=== PATIENT | female | born 1945 | race Caucasian/White ===

== ENCOUNTER 2017-12-03 06:35 | Inpatient (IN) ==
--- NOTE | 2017-12-03 07:56 | XRay Report ---
INDICATION: Weakness TECHNIQUE: AP chest x-ray,portable semiupright COMPARISON: 11/20/2015, 08/15/2014 FINDINGS:Lungs are negative. No parenchymal infiltrate or mass. No pulmonary edema or pulmonary congestion. No acute abnormality. No significant interval change. IMPRESSION: No acute abnormalities. Interpreted and Authenticated by: Ahsan Veras 12/03/17
[2017-12-03 08:13] LABS: ALT/SGPT 7 U/l (0-40); Albumin 3.6 gm/dL (3.2-5.2); Albumin/Globulin Ratio 0.9 (1.0-2.3); Alkaline Phosphatase 42 U/L (39-117); Blood Urea Nitrogen 46 mg/dl (8-23); proBNP 149.2 pg/ml (0-125)
--- NOTE | 2017-12-03 08:18 | Emergency Department Note ---
Weakness HPI - General Chief complaint: Weakness Stated complaint: Weakness Time Seen by Provider: 12/03/17 07:18 Source: EMS Mode of arrival: EMS - History of Present Illness HPI Narrative: Patient presents from home where she lives with family. Increasing weakness over the last 2-3 days, unable to ambulate. Incontinent of urine and occasionally stool which is occasional but not usually as frequent. No fevers or chills. No focal symptoms at the patient and family are aware of. Brought in by ambulance today due to her progressive weakness. Chronic leg swelling, doesn't seem to be responding to furosemide as has in the past. - Related Data Home Medications Medication Instructions Recorded Confirmed aspirin 81 mg tablet 81 mg PO DAILY 03/02/15 12/03/17 cholecalciferol (vitamin D3) 1,000 1,000 unit PO DAILY cap 05/10/16 12/03/17 unit capsule multivitamin tablet 1 tab-cap PO DAILY 05/10/16 12/03/17 Furosemide [Lasix] 20 mg PO DAILY 12/03/17 12/03/17 Lisinopril [Zestril] 10 mg PO DAILY 12/03/17 12/03/17 Potassium 99 mg PO DAILY 12/03/17 12/03/17 amLODIPine BESYLATE [Amlodipine 5 mg PO DAILY 12/03/17 12/03/17 Besylate] Previous Rx's Medication Instructions Recorded Easy Touch Test Strip See Dose Instructions .ROUTE 10/22/16 .MEDSUPPLY #100 each NS erythromycin 5 mg/gram (0.5 %) eye 0.5 inch OPHTHALMIC QID 7 Days 10/22/16 ointment #3.5 g B/L Compression stockings (20-30mm #2 each 10/23/16 Hg) insulin lispro (U-100) 100 unit/mL 10 unit SUB-Q QPM #15 ml 05/06/17 subcutaneous pen pen needle, diabetic 31 gauge x See Dose Instructions .ROUTE 10/15/17 1/" .MEDSUPPLY #200 each tramadol 50 mg tablet 50 mg PO Q8H PRN #90 tab 11/14/17 insulin glargine (U-100) 100 30 unit SUB-Q QAM #15 ml 11/25/17 unit/mL (3 mL) subcutaneous pen Allergies Allergy/AdvReac Type Severity Reaction Status Date / Time No Known Drug Allergies Allergy Verified 03/27/17 11:24 Review of Systems All systems ED: reviewed and negative except as stated. Constitutional: Denies: fever, chills Cardiovascular: Reports: dyspnea on exertion. Denies: chest pain, palpitations Gastrointestinal: Denies: abdominal pain Past Medical History - Past Medical History Attestation: Yes: The following information was validated with the patient. Source: obtained from family Medical history: Reports: CVA, dementia, DM Surgical history ED: Reports: cholecystectomy, other (ovarian cyst) Family history: Reports: non-contributory - Social History smoking status: Never smoker Physical Exam Limitations: no limitations, other (appears older than stated age) General appearance: alert, obese Head: atraumatic, normocephalic Eye: Present: normal appearance ENT: normal exam, mucous membranes moist Neck: Present: normal inspection, other (short stature, JVD not able to be examined) Chest: Present: normal inspection. Absent: tenderness Respiratory: Present: normal lung sounds bilaterally. Absent: respiratory distress Cardiovascular: Present: regular rate, normal rhythm, other (distant heart sounds) Abdominal: Present: soft, tenderness. Absent: distention, guarding, rebound, rigidity Abdominal tenderness: Present: diffuse, mild Extremities: Present: other (4+ edema, non-weeping, incompletely pitting) Back: Present: normal inspection Neurological: Present: alert, oriented X3, other (generally weak, 4-5) Psychiatric: Present: normal affect Skin: Present: warm, dry. Absent: rash Course Vital Signs Temperature 97.0 F 12/03/17 06:35 Pulse Rate 76 12/03/17 06:35 Respiratory Rate 20 12/03/17 06:35 Blood Pressure 116/89 12/03/17 06:35 Pulse Oximetry (%) 100 12/03/17 06:35 Temperature 97.0 F 12/03/17 06:35 Pulse Rate 66 12/03/17 07:49 Respiratory Rate 13 12/03/17 07:49 Blood Pressure 131/57 12/03/17 07:01 Pulse Oximetry (%) 97 12/03/17 07:49 Weakness - Lab Data Lab results reviewed: Yes I reviewed the patient's lab results. Result diagrams: 12/03/17 07:54 12/03/17 07:10 Lab Results 05/23/18 05/23/18 Range/Units 07:10 07:10 POC Hct 36.0 (36.0-48.0) % POC Sodium 137 (133-145) mmol/L Sodium 137 (133-145) mmol/L POC Potassium 4.6 (3.3-5.1) mmol/L Potassium 4.8 (3.3-5.1) mmol/L POC Chloride 103 (96-108) mmol/L Chloride 99 (96-108) mmol/L Carbon Dioxide 23 (22-30) mmol/L POC Total CO2 27 (22-30) mmol/L Anion Gap 15.0 (8-16) POC BUN 51 H (8-23) mg/dl BUN 46 H (8-23) mg/dl Creatinine 1.5 H (0.6-1.1) mg/dl POC Creatinine 1.5 H (0.6-1.1) mg/dl GFR Calculation 34 Glucose 100 (70-105) mg/dL POC Glucose 102 (70-105) mg/dL Calcium 9.0 (8.6-10.4) mg/dl POC WB Ioniz Calcium 1.09 L (1.16-1.32) mmol/L Total Bilirubin 0.4 (0.0-1.0) mg/dL AST 16 (0-37) U/l ALT 7 (0-40) U/l Alkaline Phosphatase 42 (39-117) U/L Troponin T 0.02 (0-0.03) ng/ml NT-Pro-B Natriuret Pep 149.2 H (0-125) pg/ml Total Protein 7.6 (5.9-8.4) gm/dL Albumin 3.6 (3.2-5.2) gm/dL Globulin 4.0 H (2.2-3.7) gm/dL Albumin/Globulin Ratio 0.9 L (1.0-2.3) - Radiology Data Radiology results reviewed: Yes I reviewed the patient's radiology results. No acute finding - EKG Data EKG attestation: Yes I reviewed and interpreted this EKG. EKG shows normal: sinus rhythm Disposition Pt seen by PROOF PRESS OPERATOR/PA only: No Clinical Impression: Generalized weakness, Morbid obesity, Bilateral lower extremity edema, Acute kidney injury Summary: Pending workup, patient to be deferred to Dr. Sanders at shift change, please see his notes for final diagnosis and disposition Urinalysis pending Appears to be prerenal with volume overload Miniscule elevation in troponin will be trended, doubt acute coronary Suggestion of right-sided heart failure clinically Disposition: Still a Patient Referrals: Higinio Mays MD [Primary Care Provider] -
[2017-12-03 08:20] LABS: Basophils # (Auto) 0.1 K/mcL (0.0-0.3); Basophils % (Auto) 0.8 % (0.0-2.0); Eosinophils # (Auto) 0.2 K/mcL (0.0-0.7); Eosinophils % (Auto) 3.4 % (0.0-7.0); Granulocytes % (Auto) 59.3 % (38.0-78.0); Lymphocytes % (Auto) 28.9 % (15.5-49.0); Mean Cell Volume 90.8 fL (80.0-100.0); Mean Corpuscular HGB Conc 32.7 g/dL (31.0-36.0); Mean Corpuscular Hemoglobin 29.7 pg (26.0-34.0); Monocytes # (Auto) 0.5 K/mcL (0.1-0.9); Monocytes % (Auto) 7.6 % (1.0-12.0); Platelet Count 288 K/mcL (140-440); RBC 3.97 M/mcL (4.00-5.20); Red Cell Distribution Width 13.4 % (11.5-14.5)
[2017-12-03 08:31] LABS: Appearance,Urine CLOUDY; Bacteria,Urine MOD /hpf (0); Bilirubin,Urine NEG (NEG); Color,Urine YELLOW; Glucose,Urine (UA) NEGATIVE (NEG); Leukocyte Esterase,Urine 500 /uL (NEG); Protein,Urine 30 mg/dL (NEG); Specific Gravity,Urine 1.016 (1.000-1.035); Urine Blood 0.2 mg/dL (<0.03); Urine RBC 15 /hpf (0-1); Urine Squamous Epithelial Cell 1 /hpf (0-4); Urine WBC > 182 /hpf (0-4); Urobilinogen,Urine NEG (NEG)
[2017-12-03] MEDS ORDERED: cefTRIAXone 1 GM VIAL IV ONE ×2 (08:36→13:00)
[2017-12-03] MEDS ORDERED: FUROSEMIDE 20 MG/2 ML VIAL IV ONE (10:09)
--- NOTE | 2017-12-03 10:48 | Emergency Department Note ---
Weakness HPI - General Chief complaint: Weakness Stated complaint: Weakness Time Seen by Provider: 12/03/17 07:18 Source: patient, family, EMS Mode of arrival: EMS Limitations: no limitations, other (appears older than stated age) - History of Present Illness HPI Narrative: I received patient in checkout from Dr. mendez at shift change. I reviewed his documentation as well as briefly discussed situation with the patient her and her daughter Apparently she was normally able to walk some with a walker and move around at home. Her daughter is her caregiver; she cares for the as well. Apparently lymphedema in her bilateral lower extremities is gotten worse, she has become more confused, and now she is complaining her legs no longer work. She is not complaining of chest pressure shortness of breath chest pain or other chest pain equivalents - Related Data Home Medications Medication Instructions Recorded Confirmed aspirin 81 mg tablet 81 mg PO DAILY 03/02/15 12/03/17 cholecalciferol (vitamin D3) 1,000 1,000 unit PO DAILY cap 05/10/16 12/03/17 unit capsule multivitamin tablet 1 tab-cap PO DAILY 05/10/16 12/03/17 Furosemide [Lasix] 20 mg PO DAILY 12/03/17 12/03/17 Lisinopril [Zestril] 10 mg PO DAILY 12/03/17 12/03/17 Potassium 99 mg PO DAILY 12/03/17 12/03/17 amLODIPine BESYLATE [Amlodipine 5 mg PO DAILY 12/03/17 12/03/17 Besylate] Previous Rx's Medication Instructions Recorded Easy Touch Test Strip See Dose Instructions .ROUTE 10/22/16 .MEDSUPPLY #100 each NS erythromycin 5 mg/gram (0.5 %) eye 0.5 inch OPHTHALMIC QID 7 Days 10/22/16 ointment #3.5 g B/L Compression stockings (20-30mm #2 each 10/23/16 Hg) insulin lispro (U-100) 100 unit/mL 10 unit SUB-Q QPM #15 ml 05/06/17 subcutaneous pen pen needle, diabetic 31 gauge x See Dose Instructions .ROUTE 10/15/17 1/4" .MEDSUPPLY #200 each tramadol 50 mg tablet 50 mg PO Q8H PRN #90 tab 11/14/17 insulin glargine (U-100) 100 30 unit SUB-Q QAM #15 ml 11/25/17 unit/mL (3 mL) subcutaneous pen Allergies Allergy/AdvReac Type Severity Reaction Status Date / Time No Known Drug Allergies Allergy Verified 03/27/17 11:24 Review of Systems Constitutional: Denies: fever, chills Cardiovascular: Reports: dyspnea on exertion. Denies: chest pain, palpitations Gastrointestinal: Denies: abdominal pain Past Medical History - Past Medical History Medical history: Reports: CVA, dementia, DM, GERD, hyperlipidemia, hypertension , seizures, other (Lymphedema) Surgical history ED: Reports: cholecystectomy, other (ovarian cyst) - Social History smoking status: Never smoker Physical Exam No acute distress resting comfortably. Obese. Bilateral lower extremities with +2-3 pitting edema tender but no redness or weeping. Not able to move around much in the bed at all. No respiratory distress; breathing normally Limitations: no limitations, other (appears older than stated age) General appearance: alert, obese Course Vital Signs Temperature 97.0 F 12/03/17 06:35 Pulse Rate 76 12/03/17 06:35 Respiratory Rate 20 12/03/17 06:35 Blood Pressure 116/89 12/03/17 06:35 Pulse Oximetry (%) 100 12/03/17 06:35 Temperature 98.4 F 12/03/17 09:00 Pulse Rate 73 12/03/17 10:37 Respiratory Rate 15 12/03/17 10:37 Blood Pressure 112/62 12/03/17 10:33 Pulse Oximetry (%) 97 12/03/17 10:37 Weakness - Medical Records Medical records reviewed: Yes I reviewed the patient's medical records. - Lab Data Lab results reviewed: Yes I reviewed the patient's lab results. Result diagrams: 12/03/17 07:54 12/03/17 07:10 Lab Results 12/03/17 12/03/17 12/03/17 Range/Units 07:10 07:10 07:48 WBC (4.5-11.0) K/mcL RBC (4.00-5.20) M/mcL Hgb (12.0-15.0) g/dL Hct (36.0-48.0) % POC Hct 36.0 (36.0-48.0) % MCV (80.0-100.0) fL MCH (26.0-34.0) pg MCHC (31.0-36.0) g/dL RDW (11.5-14.5) % Plt Count (140-440) K/mcL MPV (7.4-10.4) fL Gran % (38.0-78.0) % Lymph % (Auto) (15.5-49.0) % [place] % (Auto) (1.0-12.0) % Eos % (Auto) (0.0-7.0) % Baso % (Auto) (0.0-2.0) % Gran # (1.8-8.0) K/mcL Lymph # (Auto) (1.5-4.8) K/mcL [place] # (Auto) (0.1-0.9) K/mcL Eos # (Auto) (0.0-0.7) K/mcL Baso # (Auto) (0.0-0.3) K/mcL VBG Lactic Acid (0.5-2.2) mmol/L POC Sodium 137 (133-145) mmol/L Sodium 137 (133-145) mmol/L POC Potassium 4.6 (3.3-5.1) mmol/L Potassium 4.8 (3.3-5.1) mmol/L POC Chloride 103 (96-108) mmol/L Chloride 99 (96-108) mmol/L Carbon Dioxide 23 (22-30) mmol/L POC Total CO2 27 (22-30) mmol/L Anion Gap 15.0 (8-16) POC BUN 51 H (8-23) mg/dl BUN 46 H (8-23) mg/dl Creatinine 1.5 H (0.6-1.1) mg/dl POC Creatinine 1.5 H (0.6-1.1) mg/dl GFR Calculation 34 Glucose 100 (70-105) mg/dL POC Glucose 102 (70-105) mg/dL Calcium 9.0 (8.6-10.4) mg/dl POC WB Ioniz Calcium 1.09 L (1.16-1.32) mmol/L Total Bilirubin 0.4 (0.0-1.0) mg/dL AST 16 (0-37) U/l ALT 7 (0-40) U/l Alkaline Phosphatase 42 (39-117) U/L Troponin T 0.02 (0-0.03) ng/ml NT-Pro-B Natriuret Pep 149.2 H (0-125) pg/ml Total Protein 7.6 (5.9-8.4) gm/dL Albumin 3.6 (3.2-5.2) gm/dL Globulin 4.0 H (2.2-3.7) gm/dL Albumin/Globulin Ratio 0.9 L (1.0-2.3) Urine Color Yellow Urine Appearance Cloudy Urine pH 6.0 (5.0-9.0) Ur Specific [place] 1.016 (1.000-1.035) Urine Protein 30 A (NEG) mg/dL Urine Glucose (UA) Negative (NEG) mg/dL Urine Ketones Neg (NEG) mg/dL Urine Occult Blood 0.2 A (<0.03) mg/dL Urine Nitrate Pos A (NEG) Urine Bilirubin Neg (NEG) mg/dL Urine Urobilinogen Neg (NEG) mg/dL Ur Leukocyte Esterase 500 A (NEG) /uL Urine RBC 15 H (0-1) /hpf Urine WBC > 182 H (0-4) /hpf Ur Squamous Epith Cells 1 (0-4) /hpf Urine Bacteria Mod A (0) /hpf Ur Culture Indicated? Yes 12/03/17 12/03/17 12/03/17 Range/Units 07:54 08:48 08:48 WBC 6.9 (4.5-11.0) K/mcL RBC 3.97 L (4.00-5.20) M/mcL Hgb 11.8 L (12.0-15.0) g/dL Hct 36.0 (36.0-48.0) % POC Hct (36.0-48.0) % MCV 90.8 (80.0-100.0) fL MCH 29.7 (26.0-34.0) pg MCHC 32.7 (31.0-36.0) g/dL RDW 13.4 (11.5-14.5) % Plt Count 288 (140-440) K/mcL MPV 7.4 (7.4-10.4) fL Gran % 59.3 (38.0-78.0) % Lymph % (Auto) 28.9 (15.5-49.0) % [place] % (Auto) 7.6 (1.0-12.0) % Eos % (Auto) 3.4 (0.0-7.0) % Baso % (Auto) 0.8 (0.0-2.0) % Gran # 4.1 (1.8-8.0) K/mcL Lymph # (Auto) 2.0 (1.5-4.8) K/mcL [place] # (Auto) 0.5 (0.1-0.9) K/mcL Eos # (Auto) 0.2 (0.0-0.7) K/mcL Baso # (Auto) 0.1 (0.0-0.3) K/mcL VBG Lactic Acid 1.0 (0.5-2.2) mmol/L POC Sodium (133-145) mmol/L Sodium (133-145) mmol/L POC Potassium (3.3-5.1) mmol/L Potassium (3.3-5.1) mmol/L POC Chloride (96-108) mmol/L Chloride (96-108) mmol/L Carbon Dioxide (22-30) mmol/L POC Total CO2 (22-30) mmol/L Anion Gap (8-16) POC BUN (8-23) mg/dl BUN (8-23) mg/dl Creatinine (0.6-1.1) mg/dl POC Creatinine (0.6-1.1) mg/dl GFR Calculation Glucose (70-105) mg/dL POC Glucose (70-105) mg/dL Calcium (8.6-10.4) mg/dl POC WB Ioniz Calcium (1.16-1.32) mmol/L Total Bilirubin (0.0-1.0) mg/dL AST (0-37) U/l ALT (0-40) U/l Alkaline Phosphatase (39-117) U/L Troponin T 0.03 (0-0.03) ng/ml NT-Pro-B Natriuret Pep (0-125) pg/ml Total Protein (5.9-8.4) gm/dL Albumin (3.2-5.2) gm/dL Globulin (2.2-3.7) gm/dL Albumin/Globulin Ratio (1.0-2.3) Urine Color Urine Appearance Urine pH (5.0-9.0) Ur Specific [place] (1.000-1.035) Urine Protein (NEG) mg/dL Urine Glucose (UA) (NEG) mg/dL Urine Ketones (NEG) mg/dL Urine Occult Blood (<0.03) mg/dL Urine Nitrate (NEG) Urine Bilirubin (NEG) mg/dL Urine Urobilinogen (NEG) mg/dL Ur Leukocyte Esterase (NEG) /uL Urine RBC (0-1) /hpf Urine WBC (0-4) /hpf Ur Squamous Epith Cells (0-4) /hpf Urine Bacteria (0) /hpf Ur Culture Indicated? - Radiology Data Radiology results reviewed: Yes I reviewed the patient's radiology results. X-ray was read as normal without evidence of pulmonary vascular congestion - EKG Data EKG attestation: Yes I reviewed and interpreted this EKG. EKG results narrative: I did review her EKG which showed heart rate in the 70s normal sinus rhythm without evidence of ischemia. Low voltage leads suggestive of pulmonary disease -in light of her body habitus suspect obstructive sleep apnea Disposition Pt seen by LEAN SPECIALIST/PA only: No Clinical Impression: Generalized weakness, Morbid obesity, Acute kidney injury, Bilateral lower extremity edema, Complicated UTI (urinary tract infection), Advanced dementia Summary: Patient was initially seen and evaluated by Dr. mendez. Please see his note for full details After getting her test results back it is apparent that she is got a urinary tract infection-this was sent for culture and Dr. mendez started Rocephin. UTI would account for her symptoms of weakness and sudden loss of function. I.e. complicated UTI Additionally her creatinine is elevated almost double what it was before to 1.5 suggest acute prerenal kidney injury. However because the lymphedema in her legs she is likely fluid overloaded even though her chest x-ray is read as normal. She is on low-dose Lasix 20 mg which is not helping that much anymore. So we put in a Kraft catheter and gave 20 mg more IV Lasix. She has some discomfort with the Kraft catheter and so she was given Pyridium. I tried to review her chart but I could not find an echocardiogram She has a mildly elevated troponin 0.02 that went up to 0.03. It is not clear if this is actually real as she is entirely symptomatic. These labs were ordered because of the initial weakness although she is not having any chest symptoms. Likely this elevated troponin is an artifact from the acute kidney injury but this will need to be monitored. Because of her advanced dementia and her 's difficulty giving me a straight story I discussed her case with her daughter who is on the face sheet as contact. Her daughter confirmed that indeed the patient was ambulatory at least minimally prior to this episode, because of that patient really cannot go home as they are not set up to deal with a nonambulatory bedbound patient. I did discuss the case with Dr. Rincon, the hospitalist who agreed to accept patient. She will be admitted for the above-noted diagnoses: Complicated UTI, acute kidney injury etc. Disposition: Xfer As Inpt ([facility]) Condition: Fair Referrals: Higinio Mays MD [Primary Care Provider] -
[2017-12-03] MEDS ORDERED: PHENAZOPYRIDINE 200 MG TABLET PO ONE (11:00)
[2017-12-03] MEDS ORDERED: cefTRIAXone 2 GM in DEXTROSE 5% IN WATER 50 ML IV SCH (11:56)
[2017-12-03] MEDS ORDERED: MAGNESIUM SULFATE 2 GM/50 ML BAG IV PRN (11:56)
[2017-12-03] MEDS ORDERED: POTASSIUM CHLORIDE 20 MEQ PACKET PO PRN (11:56)
[2017-12-03] MEDS ORDERED: traZODone HCL 50 MG TABLET PO PRN (11:56)
[2017-12-03] MEDS ORDERED: ACETAMINOPHEN 325 MG TABLET PO PRN (11:56)
[2017-12-03] MEDS ORDERED: ONDANSETRON 4 MG/2 ML VIAL IV PRN (11:56)
[2017-12-03] MEDS ORDERED: ACETAMINOPHEN 1,000 MG/100 ML BOTTLE IV PRN (11:56)
[2017-12-03] MEDS ORDERED: guaiFENesin/CODEINE 10 ML UDC PO PRN (11:56)
[2017-12-03] MEDS: 0.9 % SODIUM CHLORIDE 1,000 ML IV SCH (12:30)
--- NOTE | 2017-12-03 13:19 | Ultrasound Report ---
CLINICAL INFORMATION: History of urinary tract infections. TECHNIQUE: Grayscale and color flow Doppler spectral imaging COMPARISON: Previous examination dated 11/21/2015 FINDINGS: Examination is suboptimal due to patient immobility and obesity. Right kidney measures 11.0 x 4.7 x 3.9 cm. Renal cortex is slightly echogenic. No solid or cystic mass. No hydronephrosis. Left kidney measures 10.6 x 5.4 x 5.4 cm. Left renal cortex is slightly echogenic. There is a left upper pole cyst which measures 5.8 x 4.0 x 6.2 cm. No solid mass. No hydronephrosis. No detectable calculi. Urinary bladder is not evaluated. There is a Kraft catheter in place. Patient has a known right adnexal cyst which has been previously biopsied. The cyst measures 14.5 x 11.1 x 15.6 cm. This cystic mass was identified on a CT scan dated 03/31/2007. IMPRESSION: 1. Benign left renal cyst. 2. Kidneys are otherwise negative. Mildly echogenic renal cortex bilaterally 3. Large cystic mass in the pelvis isn't previously evaluated and biopsied Interpreted and Authenticated by: Ahsan Veras 12/03/17
[2017-12-03] MEDS: 0.9 % SODIUM CHLORIDE 10 ML SYRINGE IV SCH ×2 (13:30→20:18)
[2017-12-03] MEDS: ERYTHROMYCIN OPHTH OINT 3.5GM TUBE OU SCH ×2 (13:31→17:05)
--- NOTE | 2017-12-03 13:36 | Internal Med History&Physical ---
Medical - H&P: [facility] Patient information: Note initiated : 12/03/17 at 1:33 pm Service Date, if different from initiated Date: [] Patient: Nicole Wolf a 72 y/o F admitted on 12/03/17 for Weakness. Chief Complaint: [] Chief complaint: weakness History of present illness: Ms. Wolf is a 72 year old F who comes to the ER with her stepdaughter and after she has noticed progressive weakness worsening over the last 48 hours to the point patient is unable to get out of bed or ambulate. On her baseline she uses a 4 wheel walker and has chronic balance disorder since 2010. She also has a history of lumbar radiculopathy. She presently is unable to move either of her legs and feels that this is sudden change however family appears to disagree on the rapidity of onset. She complains of associated lower extremity tenderness from knee to the ankle bilaterally however denies any redness or trauma. She also endorses increasing lower extremity swelling which has been chronic and uses diuretics which recently has not been very helpful. She however denies joint swelling, myalgias, headache. She denies changes in medications or recent exposure to sick contact. She further denies unilateral weakness however has had known bladder incontinence over the last few years. She uses adult diapers. She denies lower back pain, back trauma, photophobia, tearing neck pain or thunderclap headache. She denies recent falls. Initial work up in the ER was significant for pyuria along with elevated creatinine. Hospitalist service was consulted in light of weakness complicated UTI and renal failure. At the time of evaluation patient is accompanied with her and stepdaughter. She is able to answer most questions. She endorses to history as above. She normally ambulates using a walker but has been unable to walk or get out of bed in the last 48 hours. She also appears mildly confused. Review of systems A 10 point review of system was performed and is negative except as discussed above Medical - H&P: PMH Medical history: CAD History of CVA Anxiety disorder hypertension DM type II Dementia Surgical history: Past Surgical History Hx of cholecystectomy (Chronic) Pertinent family history: Noncontributory Social history: Lives with her and caregiver stepdaughter. 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 No history of smoking/alcoholism Have you smoked in the last 12 months: No Medical - H&P: Meds Home Medications Medication Instructions Recorded Confirmed Type aspirin 81 mg tablet 81 mg PO DAILY 03/02/15 12/03/17 History cholecalciferol (vitamin D3) 1,000 1,000 unit PO DAILY cap 05/10/16 12/03/17 History unit capsule multivitamin tablet 1 tab-cap PO DAILY 05/10/16 12/03/17 History erythromycin 5 mg/gram (0.5 %) eye 0.5 inch OPHTHALMIC QID 7 Days 10/22/1612/03 Rx ointment #3.5 g insulin lispro (U-100) 100 unit/mL 10 unit SUB-Q QPM #15 ml 05/06/17 12/03/17 Rx subcutaneous pen tramadol 50 mg tablet 50 mg PO Q8H PRN #90 tab 11/14/17 12/03/17 Rx insulin glargine (U-100) 100 30 unit SUB-Q QAM #15 ml 11/25/17 12/03/17 Rx unit/mL (3 mL) subcutaneous pen Furosemide [Lasix] 20 mg PO DAILY 12/03/17 12/03/17 History Lisinopril [Zestril] 10 mg PO DAILY 12/03/17 12/03/17 History Potassium 99 mg PO DAILY 12/03/17 12/03/17 History amLODIPine BESYLATE [Amlodipine 5 mg PO DAILY 12/03/17 12/03/17 History Besylate] Allergies Allergy/AdvReac Type Severity Reaction Status Date / Time No Known Drug Allergies Allergy Verified 03/27/17 11:24 Medical - H&P: Exam - Constitutional Vitals: Temp Pulse Resp BP Pulse Ox 96.3 F L 70 18 138/68 96 12/03/17 12:04 12/03/17 12:04 12/03/17 12:04 12/03/17 12:04 12/03/17 12:04 General appearance: morbidly obese Exam: Very anxious Oral cavity dry no eardischarge Head normocephalic Neck no lymphadenopathy S1 and S2 regular rhythm ESM grade 1 Diminished breath sounds bases Abdomen soft Lower extremity bilateral lymphedema from knee to ankles Skin no suspicious lesion except for gluteal 5 mm decubiti ulceration No joint swelling or erythema Psych alert cooperative Neuro - grade 3 strength bilateral lower extremity on exam , however withdraws to tactile/pain stimulus Medical - H&P: Reslt - Labs CBC & Chem 7: 12/04/17 04:23 12/04/17 04:23 Labs: Short CBC 12/03/17 Range/Units 07:54 WBC 6.9 (4.5-11.0) K/mcL Hgb 11.8 L (12.0-15.0) g/dL Hct 36.0 (36.0-48.0) % Plt Count 288 (140-440) K/mcL BMP 12/03/17 07:10 Sodium 137 Potassium 4.8 Chloride 99 Carbon Dioxide 23 BUN 46 H Creatinine 1.5 H Glucose 100 Calcium 9.0 Cardiac Enzymes 12/03/17 12/03/17 Range/Units 07:10 08:48 Troponin T 0.02 0.03 (0-0.03) ng/ml Liver Function 12/03/17 Range/Units 07:10 Total Bilirubin 0.4 (0.0-1.0) mg/dL AST 16 (0-37) U/l ALT 7 (0-40) U/l Alkaline Phosphatase 42 (39-117) U/L Albumin 3.6 (3.2-5.2) gm/dL Urine 12/03/17 Range/Units 07:48 Urine Color Yellow Urine Appearance Cloudy Urine pH 6.0 (5.0-9.0) Ur Specific [place] 1.016 (1.000-1.035) Urine Protein 30 A (NEG) mg/dL Urine Glucose (UA) Negative (NEG) mg/dL Medical - H&P: A/P (1) Complicated UTI (urinary tract infection) Current visit: Yes Status: Acute * Complicated UTI-continue antibiotic coverage. Await cultures * Acute renal failure-renal ultrasound. Foleys catheter placement. * Bilateral lower extremity weakness-rule out cord compression. Lumbosacral spine MRI. Patient carries a history of lumbar radiculopathy/chronic bladder incontinence. She may have a component of spinal stenosis. * History of DM type II continue basal prandial insulin * Hypertension hold lisinopril in light of renal failure, continue amlodipine * Degenerative joint disease continue home medication * History of CAD continue aspirin * DNR Plan * Antibiotic coverage * Renal ultrasound/lumbosacral MRI * Pre-existing medical condition management as above * B12/thiamine * Physical therapy * Case management to arrange SNF transfer Medical - H&P: Qual - VTE Deep Vein Thrombosis/Pulmonary Embolism Present on Admission: No
--- NOTE | 2017-12-03 17:22 | Magnetic Resonance Report ---
CLINICAL INFORMATION: Bilateral leg pain and weakness TECHNIQUE: Sagittal, axial, coronal images of the lumbar spine COMPARISON: 04/01/2017 FINDINGS: Multilevel degenerative disc disease and facet arthropathy. Right subarticular disc protrusion at T9-10. This causes asymmetric effacement of the CSF space. No spinal cord is compression. No spinal canal stenosis. Degenerative disc disease at T10-11. No disc herniation. No spinal canal stenosis. Degenerative disc disease at T11-12. Midline central disc protrusion. Disc material extends behind the T11 vertebral body. This causes mild midline effacement of the CSF space. No spinal cord compression. No spinal canal stenosis. Degenerative disc disease at T12-L1. There is a small midline protrusion. No spinal canal or foraminal stenosis. Degenerative disc disease at L1-2. There is a bulging disc. There is a broad-based right subarticular and foraminal protrusion. This causes asymmetric effacement of the thecal sac. No significant foraminal stenosis. Degenerative disc disease at L2-3. Diffusely bulging disc without focal herniation. There is facet arthropathy. There is moderate spinal canal stenosis. No foraminal stenosis Degenerative disc disease at L3-4. No focal disc herniation. There is facet arthropathy with osseous and ligamentous hypertrophy. There is mild spinal canal stenosis. There is right L3 foraminal stenosis Mild degenerative disc disease at L4-5. Small left subarticular protrusion with mild effacement of the prethecal fat. There is bilateral facet arthropathy with osseous and ligamentous hypertrophy. No spinal canal or foraminal stenosis. Severe degenerative disc narrowing at L5-S1. There is a bulging disc with small midline central protrusion. There is facet arthropathy bilaterally. No spinal canal stenosis. There is left L5 foraminal stenosis. No lumbar compression fracture. No pathologic marrow replacement. Normal lumbar lordosis. Conus medullaris and cauda equina are normal. No epidural abnormality. There is a large left renal cyst. This measures 5.5 cm maximally. IMPRESSION: 1. Severe multilevel degenerative disc disease and facet arthropathy 2. Moderate spinal canal stenosis at L2-3. Mild spinal canal stenosis at L3-4 3. Foraminal stenoses as above Interpreted and Authenticated by: Ahsan Veras 12/03/17
--- NOTE | 2017-12-03 17:41 | Magnetic Resonance Report ---
CLINICAL INFORMATION: Sacral pain. Bilateral leg pain. TECHNIQUE: Axial, coronal, sagittal images of the sacrum. COMPARISON: None. FINDINGS: Sacrum is negative. No insufficiency fracture. No localized bone marrow edema. No lytic lesion. Sacral neural foramen appear normal. Coccyx is negative. No edema. No fracture. No presacral or precoccygeal soft tissue abnormality. Degenerative disc disease at L4-5 and L5-S1. IMPRESSION: Negative MRI scan of the sacrum and coccyx Interpreted and Authenticated by: Ahsan Veras 12/03/17
[2017-12-03] MEDS: INSULIN LISPRO 1 UNIT/0.01 ML UNIT SQ SCH (18:52)
[2017-12-03] MEDS: HEPARIN 5,000 UNIT/ML VIAL SQ SCH (20:15)
[2017-12-03] MEDS: SENNOSIDES/DOCUSATE SODIUM 1 TAB TABLET PO SCH (20:15)
[2017-12-03] MEDS: DOCUSATE SODIUM 100 MG CAPSULE PO SCH (20:15)
[2017-12-03] MEDS ORDERED: HYDROcodone/APAP 5/325MG TABLET PO PRN (22:35)
[2017-12-03] MEDS ORDERED: HYDROcodone/APAP 5/325MG TABLET PO ONE (22:44)
[2017-12-04] MEDS: 0.9 % SODIUM CHLORIDE 10 ML SYRINGE IV SCH ×3 (05:25→20:29)
[2017-12-04 05:29] LABS: Mean Cell Volume 90.6 fL (80.0-100.0); Mean Corpuscular HGB Conc 32.8 g/dL (31.0-36.0); Mean Corpuscular Hemoglobin 29.7 pg (26.0-34.0); Platelet Count 273 K/mcL (140-440); RBC 3.69 M/mcL (4.00-5.20); Red Cell Distribution Width 13.4 % (11.5-14.5)
[2017-12-04 05:45] LABS: ALT/SGPT 7 U/l (0-40); Albumin 3.2 gm/dL (3.2-5.2); Albumin/Globulin Ratio 0.9 (1.0-2.3); Alkaline Phosphatase 45 U/L (39-117); Bilirubin,Direct < 0.2 mg/dL (0.0-0.3); Blood Urea Nitrogen 42 mg/dl (8-23); Gamma Glutamyl Transpeptidase 13 U/L (5-36); Uric Acid 8.9 mg/dL (2.5-8.0)
[2017-12-04 07:34] LABS: Basophils % (Manual) 1 % (0-2); Eosinophils % (Manual) 5 % (0-7); Lymphocytes % 33 % (15-49); Monocytes % (Manual) 5 % (1-12); Platelet Estimate NORMAL (NORMAL); RBC Morphology NORMAL (NORMAL); Segmented Neutrophils % 56 % (38-78)
[2017-12-04] MEDS: amLODIPine 5 MG TABLET PO SCH (08:44)
[2017-12-04] MEDS: DOCUSATE SODIUM 100 MG CAPSULE PO SCH ×2 (08:44→20:29)
[2017-12-04] MEDS: ASPIRIN 81 MG TAB.CHEW PO SCH (08:45)
[2017-12-04] MEDS: MULTIVIT,THER IRON,CA,FA & MIN 1 TABLET PO SCH (08:46)
[2017-12-04] MEDS: INSULIN GLARGINE, HUMAN 1 UNIT/0.01 ML SQ SCH (08:49)
[2017-12-04] MEDS: HEPARIN 5,000 UNIT/ML VIAL SQ SCH ×2 (08:51→20:29)
[2017-12-04] MEDS: cefTRIAXone 2 GM VIAL IV SCH (09:48)
[2017-12-04] MEDS: 0.9 % SODIUM CHLORIDE 1,000 ML IV SCH (09:48)
[2017-12-04] MEDS ORDERED: FUROSEMIDE 20 MG/2 ML VIAL IV ONE (13:20)
[2017-12-04] MEDS ORDERED: CYANOCOBALAMIN 1,000 MCG/ML VIAL IM ONE (13:21)
[2017-12-04] MEDS ORDERED: THIAMINE 100 MG in 0.9 % SODIUM CHLORIDE 50 ML IV ONE (13:23)
--- NOTE | 2017-12-04 13:40 | Internal Med Progress Note ---
Medical - PN: Subj Patient information: Note initiated : 12/04/17 at 1:37 pm Service Date, if different from initiated Date: [] Patient: Nicole Wolf a 72 y/o F admitted on 12/03/17 for Weakness/UTI. Chief Complaint: [] Interval history: Ms. Wolf is a 72 year old F who comes to the ER with her stepdaughter and after she has noticed progressive weakness worsening over the last 48 hours to the point patient is unable to get out of bed or ambulate. On her baseline she uses a 4 wheel walker and has chronic balance disorder since 2010. She also has a history of lumbar radiculopathy. She presently is unable to move either of her legs and feels that this is sudden change however family appears to disagree on the rapidity of onset. She complains of associated lower extremity tenderness from knee to the ankle bilaterally however denies any redness or trauma. She also endorses increasing lower extremity swelling which has been chronic and uses diuretics which recently has not been very helpful. She however denies joint swelling, myalgias, headache. She denies changes in medications or recent exposure to sick contact. She further denies unilateral weakness however has had known bladder incontinence over the last few years. She uses adult diapers. She denies lower back pain, back trauma, photophobia, tearing neck pain or thunderclap headache. She denies recent falls. Initial work up in the ER was significant for pyuria along with elevated creatinine. Hospitalist service was consulted in light of weakness complicated UTI and renal failure. At the time of evaluation patient is accompanied with her and stepdaughter. She is able to answer most questions. She endorses to history as above. She normally ambulates using a walker but has been unable to walk or get out of bed in the last 48 hours. She also appears mildly confused. 12/04-patient continues to complain of lower extremity pain and weakness however improved since previous day. Foleys draining clear urine. Ultrasound reveals pelvic mass however present since 2007 CT. No hydronephrosis. Lumbosacral MRI revealed spinal stenosis L2-L3/L4 along with multilevel DJD. Echocardiogram pending. Await CK/ESR/TSH/MRI brain. Patient reluctant to participate in physical therapy. Continue diuresis. No family at bedside. Continue daily B12 /thiamine. Creatinine 1.5. Urine culture gram-negative bacilli. Pre-existing medical condition on home medications. Case management to arrange SNF transfer for continued. Auscultation rehabilitation - Constitutional Vitals: Vital Signs Temp Pulse Resp BP Pulse Ox 97.0 F 62 18 113/61 94 12/04/17 11:45 12/04/17 11:45 12/04/17 11:45 12/04/17 11:45 12/04/17 11:45 Period Temp Pulse Resp BP Sys/Daniels Pulse Ox Last 24 Hr 96.5 F-98.6 F 60-88 18-24 113-137/61-80 94-98 Intake and Output 12/03/17 12/04/17 12/04/17 21:59 05:59 13:59 Intake Total 100 / 100 525 / 525 0 / 0 Output Total 600 / 600 500 / 500 350 / 350 Balance -500 / -500 1690 / 1690 Weight 239 lb 9.6 oz 239 lb 9.6 oz Patient Weight 12/05/17 05:59 Weight 239 lb 9.6 oz Intake & Output: Intake & Output 12/03/17 12/04/17 12/04/17 21:59 05:59 13:59 Intake Total 100 / 100 525 / 525 2039 / 0 Output Total 600 / 600 500 / 500 350 / 350 Balance -500 / -500 1690 / 1690 Weight 239 lb 9.6 oz 239 lb 9.6 oz Intake: IV 100 / 100 1000 / 1000 Sodium Chloride 0.9% 1,000 ml @ 1000 / 1000 50 mls/hr IV .Q20H [facility] Rx#: [id number] Oral 525 / 525 1040 / 1040 Output: Urine Catheter Amount 600 / 600 500 / 500 350 / 350 Other: Meal Lunch Percent of Meal Consumed 100% General appearance: moderate distress (lower extremity pain), morbidly obese Exam: Anxious and distressed Nonlabored breathing Persistent lymphedema Foleys draining clear urine Bilateral lower extremity weakness grade 3 Medical - PN: Obj Da - Labs CBC & Chem 7: 12/04/17 04:23 12/04/17 04:23 Labs: Abnormal Lab Results 12/04/17 12/04/17 12/03/17 04:23 04:23 07:54 RBC 3.69 L 3.97 L Hgb 11.0 L 11.8 L Hct 33.4 L POC BUN BUN 42 H Creatinine 1.5 H POC Creatinine Glucose 193 H Uric Acid 8.9 H Calcium 8.5 L POC WB Ioniz Calcium NT-Pro-B Natriuret Pep Globulin Albumin/Globulin Ratio 0.9 L Urine Protein Urine Occult Blood Urine Nitrate Ur Leukocyte Esterase Urine RBC Urine WBC Urine Bacteria 12/03/17 12/03/17 07:48 07:10 RBC Hgb Hct POC BUN 51 H BUN 46 H Creatinine 1.5 H POC Creatinine 1.5 H Glucose Uric Acid Calcium POC WB Ioniz Calcium 1.09 L NT-Pro-B Natriuret Pep 149.2 H Globulin 4.0 H Albumin/Globulin Ratio 0.9 L Urine Protein 30 A Urine Occult Blood 0.2 A Urine Nitrate Pos A Ur Leukocyte Esterase 500 A Urine RBC 15 H Urine WBC > 182 H Urine Bacteria Mod A Meds: Medications Acetaminophen (Tylenol) 650 mg PO Q4-6HP PRN PRN Reason: PAIN/FEVER > 101 Last Admin: 12/03/17 18:54 Dose: 650 mg Hydrocodone Bitart/Acetaminophen ([place] 5/325mg) 1 - 2 tab PO Q4HP PRN PRN Reason: PAIN LEVEL 3-6 Last Admin: 12/04/17 06:56 Dose: 1 tab Amlodipine Besylate (Norvasc) 5 mg PO DAILY [facility] Last Admin: 12/04/17 08:44 Dose: 5 mg Aspirin (Aspirin) 81 mg PO DAILY [facility] Last Admin: 12/04/17 08:45 Dose: 81 mg Ceftriaxone Sodium (Rocephin) 2 gm IV Q24H [facility] Last Admin: 12/04/17 09:48 Dose: 2 gm Cyanocobalamin (Vitamin B-12) 500 mcg PO BID [facility] Diagnostic Test (Pha) (Accu-Chek) 1 each FS ACHS [facility] Last Admin: 12/04/17 11:43 Dose: 1 each Docusate Sodium (Colace) 100 mg PO BID [facility] Last Admin: 12/04/17 08:44 Dose: 100 mg Furosemide (Lasix) 20 mg IV BIDD [facility] Guaifenesin/Codeine Phosphate (Robitussin Ac) 10 ml PO Q4HP PRN PRN Reason: Cough Heparin Sodium (Porcine) (Heparin) 5,000 unit SQ Q12 [facility] Last Admin: 12/04/17 08:51 Dose: 5,000 unit Magnesium Sulfate (Magnesium Sulfate) 2 gm in 50 mls @ 50 mls/hr IV UD PRN PRN Reason: MG = or < 1.7 Sodium Chloride (Sodium Chloride 0.9%) 1,000 mls @ 50 mls/hr IV .Q20H [facility] Stop: 12/06/17 00:03 Last Admin: 12/04/17 09:48 Dose: 50 mls/hr Acetaminophen (Ofirmev) 1,000 mg in 100 mls @ 200 mls/hr IV Q6HP PRN PRN Reason: PAIN/FEVER > 101 Last Infusion: 12/03/17 20:40 Dose: Infused Thiamine HCl 100 mg/ Sodium (Chloride) 51 mls @ 50 mls/hr IV ONCE ONE Stop: 12/04/17 14:24 Thiamine HCl 100 mg/ Sodium (Chloride) 51 mls @ 50 mls/hr IV DAILY [facility] Stop: 12/07/17 10:02 Insulin Glargine (Lantus) 30 unit SQ DAILY [facility] Last Admin: 12/04/17 08:49 Dose: 30 unit Insulin Human Lispro (Humalog) 8 - 10 unit SQ QPMAC [facility] Last Admin: 12/03/17 18:52 Dose: 8 unit Iron Carb/Multivit/[place]/Folic Acid (Multivitamin W/Minerals) 1 tab PO DAILY [facility] Last Admin: 12/04/17 08:46 Dose: 1 tab Ondansetron HCl (Zofran) 4 mg IV Q4-6HP PRN PRN Reason: Nausea And Vomiting Potassium Chloride (Klor-Con) 40 meq PO DAILYP PRN PRN Reason: K+ < 3.5 Senna/Docusate Sodium (Senna Plus Tablet) 1 tab PO HS [facility] Last Admin: 12/03/17 20:15 Dose: 1 tab Sodium Chloride (Saline Flush) 10 ml IV Q8 [facility] Last Admin: 12/04/17 05:25 Dose: Not Given Trazodone HCl (Desyrel) 50 mg PO HSP PRN PRN Reason: Insomnia Last Admin: 12/03/17 22:49 Dose: 50 mg Medical - PN: A/P - Time Spent With Patient Total time spent is greater than 50% in coordination of care (as documented) at patient's floor/unit and/or counseling patient: 25 - 35 minutes (1) Complicated UTI (urinary tract infection) Status: Acute Assessment and plan: Assessment * Complicated GNR UTI-continue antibiotic coverage. Await cultures/ sensitivities * Acute renal failure-renal ultrasound. Foleys catheter placement. * Bilateral lower extremity weakness-no evidence of cord compression on MRI however spinal stenosis between L3-L4 noted. She also has a history of lumbar radiculopathy/chronic bladder incontinence related to above continue B12/ thiamine. * History of DM type II continue basal prandial insulin, blood sugars at goal * Hypertension continue amlodipine/restart HILTON inhibitor * Degenerative joint disease continue home medication * History of CAD continue aspirin * DNR Plan * De-escalate antibiotics based on culture sensitivities * Brain MRI * CK TSH ESR * B12/thiamine * Pre-existing medical condition management as above * Aggressive physical therapy * Case management to arrange SNF transfer for posthospitalization rehabilitation Current Visit: Yes Medical - PN: Qual - VTE Deep Vein Thrombosis/Pulmonary Embolism Present on Admission: No
[2017-12-04] MEDS ORDERED: LORazepam 2 MG/ML VIAL IV ONE (14:35)
[2017-12-04 14:38] LABS: C-Reactive Protein < 0.3 mg/dl (0.0-0.8); Creatine Kinase 95 IU/L (24-170)
[2017-12-04] MEDS: FUROSEMIDE 20 MG/2 ML VIAL IV SCH ×2 (15:35→16:54)
--- NOTE | 2017-12-04 15:48 | Magnetic Resonance Report ---
CLINICAL INFORMATION: Bilateral leg weakness COMPARISON: None TECHNIQUE: Sagittal T1 FLAIR images. Axial DWI, T1 FLAIR, T2 FLAIR, T2, GRE. Coronal T2 FSE. FINDINGS: No restricted diffusion. No acute infarction. There is cerebral atrophy with enlarged subarachnoid spaces and ventricular system. Cerebellar hemispheres are atrophic. There is white matter abnormality. This is predominantly periventricular. Some of the white matter abnormality appears perpendicularly oriented to the ventricular surfaces. Demyelinating disease is possible. Vasculitis or small vessel ischemic change are also possible. No localized mass effect. No midline shift. 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 No other cerebellar abnormalities. Is mild signal abnormality in the epifanio. This is nonspecific. No extra-axial, intracranial abnormality. Normal flow void within vessels at the base of the brain. Temporal bones are negative. IMPRESSION: 1. No acute infarction. 2. Cerebral atrophy. White matter abnormality in both cerebral hemispheres. Demyelinating disease is possible. Small vessel ischemic change or vasculitis are possible. 3. Nonacute small infarction in the left cerebellar hemisphere Interpreted and Authenticated by: Ahsan Veras 12/04/17
[2017-12-04] MEDS: INSULIN LISPRO 1 UNIT/0.01 ML UNIT SQ SCH (16:59)
[2017-12-04] MEDS: SENNOSIDES/DOCUSATE SODIUM 1 TAB TABLET PO SCH (20:29)
[2017-12-04] MEDS: CYANOCOBALAMIN (VITAMIN B-12) 500 MCG TABLET PO SCH (20:29)
[2017-12-05] MEDS: 0.9 % SODIUM CHLORIDE 10 ML SYRINGE IV SCH ×3 (05:51→23:17)
[2017-12-05 06:31] LABS: Mean Cell Volume 91.2 fL (80.0-100.0); Mean Corpuscular HGB Conc 32.6 g/dL (31.0-36.0); Mean Corpuscular Hemoglobin 29.7 pg (26.0-34.0); Platelet Count 258 K/mcL (140-440); Red Cell Distribution Width 12.9 % (11.5-14.5)
[2017-12-05 07:03] LABS: ALT/SGPT 7 U/l (0-40); Albumin 3.5 gm/dL (3.2-5.2); Alkaline Phosphatase 46 U/L (39-117); Bilirubin,Direct < 0.2 mg/dL (0.0-0.3); Blood Urea Nitrogen 36 mg/dl (8-23); Gamma Glutamyl Transpeptidase 13 U/L (5-36); Uric Acid 8.1 mg/dL (2.5-8.0)
[2017-12-05] MEDS: 0.9 % SODIUM CHLORIDE 1,000 ML IV SCH (07:17)
[2017-12-05] MEDS: FUROSEMIDE 20 MG/2 ML VIAL IV SCH ×2 (07:59→08:50)
--- NOTE | 2017-12-05 08:10 | Internal Med Progress Note ---
Medical - PN: Subj Patient information: Note initiated : 12/05/17 at 8:05 am Service Date, if different from initiated Date: [] Patient: Nicole Wolf a 72 y/o F admitted on 12/03/17 for Weakness/UTI. Chief Complaint: [] Interval history: Ms. Wolf is a 72 year old F who comes to the ER with her stepdaughter and after she has noticed progressive weakness worsening over the last 48 hours to the point patient is unable to get out of bed or ambulate. On her baseline she uses a 4 wheel walker and has chronic balance disorder since 2010. She also has a history of lumbar radiculopathy. She presently is unable to move either of her legs and feels that this is sudden change however family appears to disagree on the rapidity of onset. She complains of associated lower extremity tenderness from knee to the ankle bilaterally however denies any redness or trauma. She also endorses increasing lower extremity swelling which has been chronic and uses diuretics which recently has not been very helpful. She however denies joint swelling, myalgias, headache. She denies changes in medications or recent exposure to sick contact. She further denies unilateral weakness however has had known bladder incontinence over the last few years. She uses adult diapers. She denies lower back pain, back trauma, photophobia, tearing neck pain or thunderclap headache. She denies recent falls. Initial work up in the ER was significant for pyuria along with elevated creatinine. Hospitalist service was consulted in light of weakness complicated UTI and renal failure. At the time of evaluation patient is accompanied with her and stepdaughter. She is able to answer most questions. She endorses to history as above. She normally ambulates using a walker but has been unable to walk or get out of bed in the last 48 hours. She also appears mildly confused. 12/04-patient continues to complain of lower extremity pain and weakness however improved since previous day. Foleys draining clear urine. Ultrasound reveals pelvic mass however present since 2007 CT. No hydronephrosis. Lumbosacral MRI revealed spinal stenosis L2-L3/L4 along with multilevel DJD. Echocardiogram pending. Await CK/ESR/TSH/MRI brain. Patient reluctant to participate in physical therapy. Continue diuresis. No family at bedside. Continue daily B12 /thiamine. Creatinine 1.5. Urine culture gram-negative bacilli. Pre-existing medical condition on home medications. Case management to arrange SNF transfer for continued. Auscultation rehabilitation 12/05-patient feels remarkably better. Was able to tolerate physical therapy and ambulated with assistance. Denies dysuria fever chills overnight events. No concerns per staff. MRI brain no acute process. Left cerebellar hemisphere nonacute infarction. Diuresing well. Improving lymphedema. Update - Constitutional Vitals: Vital Signs Temp Pulse Resp BP Pulse Ox 98.2 F 70 18 154/71 97 12/05/17 04:00 12/05/17 04:00 12/05/17 04:00 12/05/17 04:00 12/05/17 06:52 Period Temp Pulse Resp BP Sys/Daniels Pulse Ox Last 24 Hr 97.0 F-98.2 F 62-82 16-18 113-154/61-71 93-97 Intake and Output 12/04/17 12/05/17 12/05/17 21:59 05:59 13:59 Intake Total 250 / 250 1500 / 1500 Output Total 2150 / 2150 700 / 700 350 / 350 Balance -1900 / -1900 800 / 800 -350 / -350 Weight 242 lb Intake & Output: Intake & Output 12/04/17 12/05/17 12/05/17 21:59 05:59 13:59 Intake Total 250 / 250 1500 / 1500 Output Total 2150 / 2150 700 / 700 350 / 350 Balance -1900 / -1900 800 / 800 -350 / -350 Weight 242 lb Intake: IV 50 / 50 1000 / 1000 Sodium Chloride 0.9% 1,000 ml @ 1000 / 1000 50 mls/hr IV .Q20H [facility] Rx#: [id number] Oral 200 / 200 500 / 500 Output: Urine Catheter Amount 2150 / 2150 700 / 700 350 / 350 Other: Stool Size Large Stool Color Brown Stool Consistency Soft General appearance: no acute distress Exam: Visually challenged Nonlabored breathing Normal affect Lymphedema improving Improved lower extremity strength grade 4-5 Medical - PN: Obj Da - Labs CBC & Chem 7: 12/05/17 04:57 12/05/17 04:57 Labs: Abnormal Lab Results 12/05/17 12/05/17 12/04/17 04:57 04:57 15:40 RBC 3.80 L Hgb 11.3 L Hct 34.7 L ESR 39 H POC BUN BUN 36 H Creatinine 1.3 H POC Creatinine Glucose 222 H Uric Acid 8.1 H Calcium POC WB Ioniz Calcium NT-Pro-B Natriuret Pep Globulin Albumin/Globulin Ratio Urine Protein Urine Occult Blood Urine Nitrate Ur Leukocyte Esterase Urine RBC Urine WBC Urine Bacteria 12/04/17 12/04/17 12/03/17 04:23 04:23 07:54 RBC 3.69 L 3.97 L Hgb 11.0 L 11.8 L Hct 33.4 L ESR POC BUN BUN 42 H Creatinine 1.5 H POC Creatinine Glucose 193 H Uric Acid 8.9 H Calcium 8.5 L POC WB Ioniz Calcium NT-Pro-B Natriuret Pep Globulin Albumin/Globulin Ratio 0.9 L Urine Protein Urine Occult Blood Urine Nitrate Ur Leukocyte Esterase Urine RBC Urine WBC Urine Bacteria 12/03/17 12/03/17 07:48 07:10 RBC Hgb Hct ESR POC BUN 51 H BUN 46 H Creatinine 1.5 H POC Creatinine 1.5 H Glucose Uric Acid Calcium POC WB Ioniz Calcium 1.09 L NT-Pro-B Natriuret Pep 149.2 H Globulin 4.0 H Albumin/Globulin Ratio 0.9 L Urine Protein 30 A Urine Occult Blood 0.2 A Urine Nitrate Pos A Ur Leukocyte Esterase 500 A Urine RBC 15 H Urine WBC > 182 H Urine Bacteria Mod A Meds: Medications Acetaminophen (Tylenol) 650 mg PO Q4-6HP PRN PRN Reason: PAIN/FEVER > 101 Last Admin: 12/03/17 18:54 Dose: 650 mg Hydrocodone Bitart/Acetaminophen ([place] 5/325mg) 1 - 2 tab PO Q4HP PRN PRN Reason: PAIN LEVEL 3-6 Last Admin: 12/04/17 06:56 Dose: 1 tab Amlodipine Besylate (Norvasc) 5 mg PO DAILY [facility] Last Admin: 12/04/17 08:44 Dose: 5 mg Aspirin (Aspirin) 81 mg PO DAILY [facility] Last Admin: 12/04/17 08:45 Dose: 81 mg Ceftriaxone Sodium (Rocephin) 2 gm IV Q24H [facility] Last Admin: 12/04/17 09:48 Dose: 2 gm Cyanocobalamin (Vitamin B-12) 500 mcg PO BID [facility] Last Admin: 12/04/17 20:29 Dose: 500 mcg Diagnostic Test (Pha) (Accu-Chek) 1 each FS ACHS [facility] Last Admin: 12/05/17 07:27 Dose: 1 each Docusate Sodium (Colace) 100 mg PO BID [facility] Last Admin: 12/04/17 20:29 Dose: 100 mg Furosemide (Lasix) 20 mg IV BIDD [facility] Last Admin: 12/05/17 07:59 Dose: 20 mg Guaifenesin/Codeine Phosphate (Robitussin Ac) 10 ml PO Q4HP PRN PRN Reason: Cough Heparin Sodium (Porcine) (Heparin) 5,000 unit SQ Q12 [facility] Last Admin: 12/04/17 20:29 Dose: 5,000 unit Magnesium Sulfate (Magnesium Sulfate) 2 gm in 50 mls @ 50 mls/hr IV UD PRN PRN Reason: MG = or < 1.7 Sodium Chloride (Sodium Chloride 0.9%) 1,000 mls @ 50 mls/hr IV .Q20H [facility] Stop: 12/06/17 00:03 Last Admin: 12/05/17 07:17 Dose: 50 mls/hr Acetaminophen (Ofirmev) 1,000 mg in 100 mls @ 200 mls/hr IV Q6HP PRN PRN Reason: PAIN/FEVER > 101 Last Infusion: 12/03/17 20:40 Dose: Infused Thiamine HCl 100 mg/ Sodium (Chloride) 51 mls @ 50 mls/hr IV DAILY [facility] Stop: 12/07/17 10:02 Insulin Glargine (Lantus) 30 unit SQ DAILY [facility] Last Admin: 12/04/17 08:49 Dose: 30 unit Insulin Human Lispro (Humalog) 8 - 10 unit SQ QPMAC [facility] Last Admin: 12/04/17 16:59 Dose: Not Given Iron Carb/Multivit/Cna Ltc/Folic Acid (Multivitamin W/Minerals) 1 tab PO DAILY [facility] Last Admin: 12/04/17 08:46 Dose: 1 tab Lisinopril (Zestril) 10 mg PO DAILY [facility] Ondansetron HCl (Zofran) 4 mg IV Q4-6HP PRN PRN Reason: Nausea And Vomiting Potassium Chloride (Klor-Con) 40 meq PO DAILYP PRN PRN Reason: K+ < 3.5 Senna/Docusate Sodium (Senna Plus Tablet) 1 tab PO HS [facility] Last Admin: 12/04/17 20:29 Dose: 1 tab Sodium Chloride (Saline Flush) 10 ml IV Q8 [facility] Last Admin: 12/05/17 05:51 Dose: Not Given Trazodone HCl (Desyrel) 50 mg PO HSP PRN PRN Reason: Insomnia Last Admin: 12/03/17 22:49 Dose: 50 mg Medical - PN: A/P - Time Spent With Patient Total time spent is greater than 50% in coordination of care (as documented) at patient's floor/unit and/or counseling patient: 15 - 24 minutes (1) Complicated UTI (urinary tract infection) Status: Acute Assessment and plan: Assessment * Complicated GNR UTI -on empiric antibiotic coverage. Await cultures/ sensitivities * Acute renal failure- negative renal ultrasound; creatinine down to 1.3. Baseline creatinine 1 * Bilateral lower extremity weakness- clinically improving with physical therapy. Able to bear weight and ambulate. No evidence of cord compression on MRI however L2-4 spinal stenosis noted. She also has a history of lumbar radiculopathy/chronic bladder incontinence related to above with chronic lower extremity weakness. Continue B12/thiamine. * History of DM type II continue basal prandial insulin, blood sugars at goal * Hypertension continue amlodipine/restart HILTON inhibitor * Degenerative joint disease continue home medication * History of CAD continue aspirin * DNR Plan * De-escalate antibiotics based on culture sensitivities * Continue B12/thiamine * Pre-existing medical condition management as above * Aggressive physical therapy * SNF transfer likely in 24 hours Current Visit: Yes Medical - PN: Qual - VTE Deep Vein Thrombosis/Pulmonary Embolism Present on Admission: No
[2017-12-05] MEDS: amLODIPine 5 MG TABLET PO SCH (08:25)
[2017-12-05] MEDS: MULTIVIT,THER IRON,CA,FA & MIN 1 TABLET PO SCH (08:25)
[2017-12-05] MEDS: LISINOPRIL 10 MG TABLET PO SCH (08:26)
[2017-12-05] MEDS: DOCUSATE SODIUM 100 MG CAPSULE PO SCH ×2 (08:26→20:28)
[2017-12-05] MEDS: CYANOCOBALAMIN (VITAMIN B-12) 500 MCG TABLET PO SCH ×2 (08:26→20:27)
[2017-12-05] MEDS: INSULIN GLARGINE, HUMAN 1 UNIT/0.01 ML SQ SCH (08:27)
[2017-12-05] MEDS: ASPIRIN 81 MG TAB.CHEW PO SCH (08:27)
[2017-12-05] MEDS: HEPARIN 5,000 UNIT/ML VIAL SQ SCH ×2 (08:27→20:27)
[2017-12-05] MEDS: THIAMINE 100 MG in 0.9 % SODIUM CHLORIDE 50 ML IV SCH (08:40)
[2017-12-05 09:01] LABS: Basophils % (Manual) 1 % (0-2); Eosinophils % (Manual) 2 % (0-7); Lymphocytes % 36 % (15-49); Monocytes % (Manual) 7 % (1-12); Platelet Estimate NORMAL (NORMAL); RBC Morphology NORMAL (NORMAL); Segmented Neutrophils % 54 % (38-78)
[2017-12-05] MEDS: cefTRIAXone 2 GM VIAL IV SCH (09:25)
--- NOTE | 2017-12-05 09:45 | Discharge Summary ---
Medical - DS: Prov Patient information: Note initiated : 12/05/17 at 9:43 am Service Date, if different from initiated Date: [] Patient: Nicole Wolf 72 y/o F admitted on 12/03/17 for Weakness/UTI. Chief Complaint: [] Date of admission: 12/03/17 11:42 Discharge date: 12/05/17 Primary care physician: Higinio Mays Consults: 12/03/17 10:46 Consult to Physician [CONS] Stat Comment: Consulting Provider: Larry Rincon Reason For Exam: Physician to Consult Medical - DS: Meds - Discharge Medications Prescriptions: Cefdinir 300 mg PO BID #10 capsule Cyanocobalamin (Vitamin B-12) [Vitamin B-12] 1,000 mcg SL DAILY #30 tab Thiamine [Vitamin B1] 100 mg PO DAILY #30 tab Active and Home Medications: Home Medications aspirin 81 mg tablet 81 mg PO DAILY 03/02/15 [History Confirmed 12/03/17 Last Taken 12/02/17 07:00] cholecalciferol (vitamin D3) 1,000 unit capsule 1,000 unit PO DAILY cap [History Confirmed 12/03/17 Last Taken 12/02/17 07:00] multivitamin tablet 1 tab-cap PO DAILY 05/10/16 [History Confirmed 12/03/17 Last Taken Unknown] erythromycin 5 mg/gram (0.5 %) eye ointment 0.5 inch OPHTHALMIC QID 7 Days #3.5 g 10/22/16 [Rx Confirmed 12/03/17 Last Taken Unknown] insulin lispro (U-100) 100 unit/mL subcutaneous pen 10 unit SUB-Q QPM #15 ml [Rx Confirmed 12/03/17 Last Taken 12/02/17 17:00] tramadol 50 mg tablet 50 mg PO Q8H PRN #90 tab 11/14/17 [Rx Confirmed 12/03/17 Last Taken Unknown] insulin glargine (U-100) 100 unit/mL (3 mL) subcutaneous pen 30 unit SUB-Q QAM # 15 ml 11/25/17 [Rx Confirmed 12/03/17 Last Taken 12/02/17 07:00] Furosemide [Lasix] 20 mg PO DAILY 12/03/17 [History Confirmed 12/03/17 Last Taken 12/02/17 07:00] Lisinopril [Zestril] 10 mg PO DAILY 12/03/17 [History Confirmed 12/03/17 Last Taken 12/02/17 07:00] Potassium 99 mg PO DAILY 12/03/17 [History Confirmed 12/03/17 Last Taken 07:00] amLODIPine BESYLATE [Amlodipine Besylate] 5 mg PO DAILY 12/03/17 [History Confirmed 12/03/17 Last Taken 12/02/17 07:00] Cyanocobalamin (Vitamin B-12) [Vitamin B-12] 1,000 mcg SL DAILY #30 tab [Rx Last Taken Unknown] Thiamine [Vitamin B1] 100 mg PO DAILY #30 tab 12/05/17 [Rx Last Taken Unknown] Medical - DS: Hosp Hospital course: Discharge diagnoses * Complicated GNR UTI -on empiric antibiotic coverage. Continue additional 4 days antibiotic coverage. Transfer to SNF for continued posthospitalization rehabilitation * Acute renal failure- negative renal ultrasound; creatinine down to 1.3. Baseline creatinine 1. Clinically improving * Bilateral lower extremity weakness- clinically improving with ongoing physical therapy. Able to bear weight and ambulate. Transfer to SNF for continued rehabilitation. No evidence of cord compression on MRI however L2-4 spinal stenosis noted. She also has a history of lumbar radiculopathy/chronic bladder incontinence related to above with chronic lower extremity weakness. Continue B12/thiamine supplements. Recommend PCP to coordinate neurosurgery follow-up for spinal stenosis evaluation * History of DM type II continue basal prandial insulin * Hypertension continue amlodipine/HILTON inhibitor * Degenerative joint disease continue home medication * History of CAD continue aspirin Brief hospital course Ms. Wolf is a 72 year old F who comes to the ER with her stepdaughter and after she has noticed progressive weakness worsening over the last 48 hours to the point patient is unable to get out of bed or ambulate. On her baseline she uses a 4 wheel walker and has chronic balance disorder since 2010. She also has a history of lumbar radiculopathy. She presently is unable to move either of her legs and feels that this is sudden change however family appears to disagree on the rapidity of onset. She complains of associated lower extremity tenderness from knee to the ankle bilaterally however denies any redness or trauma. She also endorses increasing lower extremity swelling which has been chronic and uses diuretics which recently has not been very helpful. She however denies joint swelling, myalgias, headache. She denies changes in medications or recent exposure to sick contact. She further denies unilateral weakness however has had known bladder incontinence over the last few years. She uses adult diapers. She denies lower back pain, back trauma, photophobia, tearing neck pain or thunderclap headache. She denies recent falls. Initial work up in the ER was significant for pyuria along with elevated creatinine. Hospitalist service was consulted in light of weakness complicated UTI and renal failure. At the time of evaluation patient is accompanied with her and stepdaughter. She is able to answer most questions. She endorses to history as above. She normally ambulates using a walker but has been unable to walk or get out of bed in the last 48 hours. She also appears mildly confused. 12/04-patient continues to complain of lower extremity pain and weakness however improved since previous day. Foleys draining clear urine. Ultrasound reveals pelvic mass however present since 2007 CT. No hydronephrosis. Lumbosacral MRI revealed spinal stenosis L2-L3/L4 along with multilevel DJD. Echocardiogram pending. Await CK/ESR/TSH/MRI brain. Patient reluctant to participate in physical therapy. Continue diuresis. No family at bedside. Continue daily B12 /thiamine. Creatinine 1.5. Urine culture gram-negative bacilli. Pre-existing medical condition on home medications. Case management to arrange SNF transfer for continued. Auscultation rehabilitation 12/05-patient feels remarkably better. Was able to tolerate physical therapy and ambulated with assistance. Denies dysuria fever chills overnight events. No concerns per staff. MRI brain no acute process. Left cerebellar hemisphere nonacute infarction. Diuresing well. Improving lymphedema. Patient discharging to SNF for continued post hospitalization rehabilitation directed towards increasing strength and mobility in light of bilateral lower extremity weakness. Detailed discharge instructions and medications as below Discharge diagnosis: . - Time Spent with Patient Total time spent providing and/or coordinating discharge services: Greater than 30 minutes Medical - DS: Exam - Constitutional Vitals: Vital Signs Temp Pulse Pulse Pulse Resp BP Pulse Ox 12/05/17 06:52 97 12/05/17 06:48 97 12/05/17 04:00 98.2 F 70 18 154/71 96 12/04/17 23:56 97.5 F 70 18 135/63 97 12/04/17 20:47 80 16 93 12/04/17 20:00 97.7 F 82 16 116/70 96 12/04/17 16:00 97.3 F 68 18 146/69 95 12/04/17 11:45 97.0 F 62 18 113/61 94 Intake and Output 12/04/17 12/05/17 12/05/17 21:59 05:59 13:59 Intake Total 250 / 250 1500 / 1500 Output Total 2150 / 2150 700 / 700 350 / 350 Balance -1900 / -1900 800 / 800 -350 / -350 Intake: IV 50 / 50 1000 / 1000 Sodium Chloride 0.9% 1,000 ml @ 1000 / 1000 50 mls/hr IV .Q20H [facility] Rx#: [id number] Oral 200 / 200 500 / 500 Output: Urine Catheter Amount 2150 / 2150 700 / 700 350 / 350 Other: Stool Size Large Stool Color Brown Stool Consistency Soft Weight 242 lb Medical - DS: Data Labs on day of discharge: Labs from last 24 hours 12/05/17 12/05/17 12/04/17 04:57 04:57 15:40 WBC 6.9 RBC 3.80 L Hgb 11.3 L Hct 34.7 L MCV 91.2 MCH 29.7 MCHC 32.6 RDW 12.9 Plt Count 258 MPV 7.7 Total Counted 100 Seg Neutrophils % 54 Band Neutrophils % Not Reportable Lymphocytes % 36 Monocytes % (Manual) 7 Eosinophils % (Manual) 2 Basophils % (Manual) 1 Platelet Estimate Normal RBC Morphology Normal ESR 39 H Sodium 138 Potassium 4.8 Chloride 99 Carbon Dioxide 28 Anion Gap 11.0 BUN 36 H Creatinine 1.3 H GFR Calculation 40 Glucose 222 H Uric Acid 8.1 H Calcium 9.0 Phosphorus 3.7 Magnesium 2.2 Total Bilirubin 0.2 Direct Bilirubin < 0.2 GGT 13 AST 12 ALT 7 Alkaline Phosphatase 46 Lactate Dehydrogenase 172 Total Creatine Kinase C-Reactive Protein Total Protein 7.0 Albumin 3.5 Globulin 3.5 Albumin/Globulin Ratio 1.0 Triglycerides 96 TSH 12/04/17 12/04/17 04:23 04:23 WBC RBC Hgb Hct MCV MCH MCHC RDW Plt Count MPV Total Counted Seg Neutrophils % Band Neutrophils % Lymphocytes % Monocytes % (Manual) Eosinophils % (Manual) Basophils % (Manual) Platelet Estimate RBC Morphology ESR TNP Sodium Potassium Chloride Carbon Dioxide Anion Gap BUN Creatinine GFR Calculation Glucose Uric Acid Calcium Phosphorus Magnesium Total Bilirubin Direct Bilirubin GGT AST ALT Alkaline Phosphatase Lactate Dehydrogenase Total Creatine Kinase 95 C-Reactive Protein < 0.3 Total Protein Albumin Globulin Albumin/Globulin Ratio Triglycerides TSH 4.70 Preliminary micro results at discharge 12/03/17 07:48 Urine Culture - Preliminary Urine - Catheterized Gram negative bacillus Medical - DS: A/P - Patient/Caregiver Discharge Instructions Activity: as per physical therapy Diet: Renal/Consistent Carbs Additional Instructions: Please schedule patient for wound care clinic follow up for Right Gluteal wound before patient discharges home. Follow-up PCP in 5 days I recommend SNF physician to check CBC BMP UA as a posthospital follow-up in 1 week. Antibiotics for additional 5 days Continue aggressive bowel regimen to prevent constipation Continue fall precautions Continue aggressive PT OT evaluation and treatment at [facility]. ST eval and treatment if indicated All meals on chair sitting upright at 90 degrees to prevent aspiration Return to ER if worsening fever chills shortness of breath, diarrhea, bleeding Review risk and side effect profile of medications including antibiotics. Side effect may include mild to severe reaction including rash, diarrhea, cdiff and even which can be prevented by close follow-up with PCP and monitoring for side effects Continue diet and activity as advised Discussed importance of medication adherence Please review medication list with patient prior to discharge Please schedule follow-up with PCP/Providers prior to discharge and provide printouts Portions of this chart may have been created with Ning voice recognition software. Occasional wrong-word or ?sound-like? substitutions may have occurred due to the inherent limitations of voice recognition software. Please read the chart carefully and recognize, using context, where the substitutions have occurred. CC- PCP Prescriptions: Cefdinir 300 mg PO BID #10 capsule Cyanocobalamin (Vitamin B-12) [Vitamin B-12] 1,000 mcg SL DAILY #30 tab Thiamine [Vitamin B1] 100 mg PO DAILY #30 tab - Problem Maintenance (1) Complicated UTI (urinary tract infection) Status: Acute - Follow up Plan Follow up with: Higinio Mays MD [Primary Care Provider] - Disposition: Xfer [facility] Prognosis: Fair Rehab Potential: Fair I certify that the patient requires SNF services: Yes Overall status at discharge: patient is progressing back to baseline Medical - DS: Qual - VTE Deep Vein Thrombosis/Pulmonary Embolism Present on Admission: No
[2017-12-05] MEDS: INSULIN LISPRO 1 UNIT/0.01 ML UNIT SQ SCH (17:12)
[2017-12-05] MEDS: SENNOSIDES/DOCUSATE SODIUM 1 TAB TABLET PO SCH (20:28)
[2017-12-06] MEDS: 0.9 % SODIUM CHLORIDE 10 ML SYRINGE IV SCH (05:58)
[2017-12-06 06:56] LABS: Mean Cell Volume 90.6 fL (80.0-100.0); Mean Corpuscular HGB Conc 32.9 g/dL (31.0-36.0); Mean Corpuscular Hemoglobin 29.8 pg (26.0-34.0); Platelet Count 277 K/mcL (140-440); RBC 3.77 M/mcL (4.00-5.20)
--- NOTE | 2017-12-06 07:05 | Discharge Summary ---
Medical - DS: Prov Patient information: Note initiated : 12/06/17 at 7:01 am Patient: Nicole Wolf a 72 y/o F admitted on 12/03/17 for Weakness/UTI. Date of admission: 12/03/17 11:42 Discharge date: 12/06/17 Primary care physician: Higinio Mays Consults: 12/03/17 10:46 Consult to Physician [CONS] Stat Comment: Consulting Provider: Larry Rincon Reason For Exam: Physician to Consult Attending physician on discharge: Allyssa Meza Discharging clinician: Allyssa Meza Medical - DS: Meds - Discharge Medications Prescriptions: Cefdinir 300 mg PO BID #10 cap Cyanocobalamin (Vitamin B-12) [Vitamin B-12] 1,000 mcg SL DAILY #30 tab Thiamine [Vitamin B1] 100 mg PO DAILY #30 tab traMADol [Ultram] 50 mg PO Q8H PRN #10 tab PRN Reason: Pain Active and Home Medications: Home Medications aspirin 81 mg tablet 81 mg PO DAILY 03/02/15 [History Confirmed 12/03/17 Last Taken 12/02/17 07:00] cholecalciferol (vitamin D3) 1,000 unit capsule 1,000 unit PO DAILY cap [History Confirmed 12/03/17 Last Taken 12/02/17 07:00] multivitamin tablet 1 tab-cap PO DAILY 05/10/16 [History Confirmed 12/03/17 Last Taken Unknown] erythromycin 5 mg/gram (0.5 %) eye ointment 0.5 inch OPHTHALMIC QID 7 Days #3.5 g 10/22/16 [Rx Confirmed 12/03/17 Last Taken Unknown] insulin lispro (U-100) 100 unit/mL subcutaneous pen 10 unit SUB-Q QPM #15 ml [Rx Confirmed 12/03/17 Last Taken 12/02/17 17:00] insulin glargine (U-100) 100 unit/mL (3 mL) subcutaneous pen 30 unit SUB-Q QAM # 15 ml 11/25/17 [Rx Confirmed 12/03/17 Last Taken 12/02/17 07:00] Furosemide [Lasix] 20 mg PO DAILY 12/03/17 [History Confirmed 12/03/17 Last Taken 12/02/17 07:00] Lisinopril [Zestril] 10 mg PO DAILY 12/03/17 [History Confirmed 12/03/17 Last Taken 12/02/17 07:00] Potassium 99 mg PO DAILY 12/03/17 [History Confirmed 12/03/17 Last Taken 07:00] amLODIPine BESYLATE [Amlodipine Besylate] 5 mg PO DAILY 12/03/17 [History Confirmed 12/03/17 Last Taken 12/02/17 07:00] Cefdinir 300 mg PO BID #10 cap 12/05/17 [Rx Last Taken Unknown] Cyanocobalamin (Vitamin B-12) [Vitamin B-12] 1,000 mcg SL DAILY #30 tab [Rx Last Taken Unknown] Thiamine [Vitamin B1] 100 mg PO DAILY #30 tab 12/05/17 [Rx Last Taken Unknown] traMADol [Ultram] 50 mg PO Q8H PRN #10 tab 12/05/17 [Rx Last Taken Unknown] Medical - DS: Hosp Hospital course: Ms. Becker is a 86 year old F with known O2 dep COPD resident [email or web address] who presents to [facility] with SOB worsening over few days. Symptoms started gradually over 10 days with increasing SOB, weakness along with Yellow green productive sputum, loss of apetite and increasing purulence. She endorses to sick contact at the facility. She was also recently hospitalized at [facility] for pneumonia and was discharged a few days ago. Since discharge she has noted progressive deterioration. She has become extremely fatigued and lethargic and has been unable to perform activities of daily living. She has associated nausea and has not eaten in the last 36 hours. She denies diarrhea, dysuria, shaking chills or drenching sweats. She difficulty swallowing or choking on meals. Initial workup in the ER were significant for profound hypoxemia requiring 6 L oxygen to maintain sats along with right sided infiltrate consistent with pneumonia. After blood cultures antibiotics were initiated. Hospitalist service was consulted At the time of evaluation patient is very fatigued and lethargic. She is unable to talk in full sentences. She is markedly labored. She endorses to history as above. No family members are present. 12/03-patient doing better. Improved appetite. Improved shortness of breath. Improved hypoxia now on 3 L oxygen. Patient is able to talk in full sentences. No overnight fever or chills or worsening shortness of breath or concerns per staff. White count down from 17->13. Lactic acid 0.8 12/04 patient complains of significant nausea. Speech therapy eval revealed esophageal stricture. On modified diet per ST recommendations. Clinically improving and able to ambulate over 100 feet with assistance. No significant shortness of breath. White count down to 13,000. Mycoplasma and urine strep antigen negative. Sputum and blood Cultures negative. No overnight fever chills or concerns per staff. On 3 L oxygen 12/05-patient doing better. White count 11,000. On 2 L oxygen. Stable hemodynamics. No overnight events. this was nursing staff. ongoing physical therapy. generalized weakness noted. physical therapy recommendations rehabilitation transfer on discharge. anticipate snf transfer in 24 hours with continued clinical improvement. 12/06 - SNF unable to take patient yesterday. She considered other options, but has been living alone and unable to care for self with generalized weakness. Reports she did get up with walker to ambulate to toilet twice last night. Patient more engaged with idea of rehab for strengthening prior to returning home. She understands the work and effort that will be involved. No other complaints or new issues this morning. Discharge diagnosis: Complicated GNR UTI -on empiric antibiotic coverage. Continue additional 4 - Time Spent with Patient Total time spent providing and/or coordinating discharge services: Less than 30 minutes (Visit this AM and subsequent note essentially an addendum to summary completed yesterday.) Medical - DS: Exam - Constitutional Vitals: Vital Signs Temp Pulse Resp BP Pulse Ox 12/06/17 06:59 97.8 F 18 127/75 96 12/06/17 03:00 97.6 F 65 18 148/82 97 12/05/17 23:00 98.5 F 76 20 122/77 97 12/05/17 19:00 97.9 F 74 18 123/78 98 12/05/17 15:00 97.9 F 18 152/77 100 12/05/17 11:47 96.9 F L 16 107/65 99 Intake and Output 12/05/17 12/06/17 12/06/17 21:59 05:59 13:59 Intake Total 240 / 240 150 / 150 Balance 240 / 240 150 / 150 Intake: Oral 240 / 240 150 / 150 Other: Meal Dinner Percent of Meal Consumed 100% Feeding Ability Independent # Voids 1 1 Weight 239 lb General appearance: obese Additional comments: No distress; oriented, conversant this AM. - ENT ENT exam: Present: mucous membranes moist, normal exam - Neck Additional comments: Obese, short neck which limits exam. No masses, bruits, or JVD noted. - Respiratory Additional comments: Clear to bases bilaterally. - Cardiovascular Additional comments: Regular rate and rhythm, no murmurs, rubs, or gallops. - Extremities Exam Additional comments: Extremities diffusely tender to palpation; trace edema noted. Warm, positive pulses x 4 Medical - DS: Data Labs on day of discharge: Labs from last 24 hours 12/06/17 12/06/17 12/05/17 04:43 04:43 04:57 WBC 6.5 RBC 3.77 L Hgb 11.2 L Hct 34.1 L MCV 90.6 MCH 29.8 MCHC 32.9 RDW 13.0 Plt Count 277 MPV 7.6 Total Counted Pending Seg Neutrophils % Band Neutrophils % Not Reportable Lymphocytes % Monocytes % (Manual) Eosinophils % (Manual) Basophils % (Manual) Platelet Estimate Pending RBC Morphology Pending Sodium Pending 138 Potassium Pending 4.8 Chloride Pending 99 Carbon Dioxide Pending 28 Anion Gap Pending 11.0 BUN Pending 36 H Creatinine Pending 1.3 H GFR Calculation Pending 40 Glucose Pending 222 H Uric Acid Pending 8.1 H Calcium Pending 9.0 Phosphorus Pending 3.7 Magnesium Pending 2.2 Total Bilirubin Pending 0.2 Direct Bilirubin Pending < 0.2 GGT Pending 13 AST Pending 12 ALT Pending 7 Alkaline Phosphatase Pending 46 Lactate Dehydrogenase Pending 172 Total Protein Pending 7.0 Albumin Pending 3.5 Globulin Pending 3.5 Albumin/Globulin Ratio Pending 1.0 Triglycerides Pending 96 12/05/17 04:57 WBC RBC Hgb Hct MCV MCH MCHC RDW Plt Count MPV Total Counted 100 Seg Neutrophils % 54 Band Neutrophils % Lymphocytes % 36 Monocytes % (Manual) 7 Eosinophils % (Manual) 2 Basophils % (Manual) 1 Platelet Estimate Normal RBC Morphology Normal Sodium Potassium Chloride Carbon Dioxide Anion Gap BUN Creatinine GFR Calculation Glucose Uric Acid Calcium Phosphorus Magnesium Total Bilirubin Direct Bilirubin GGT AST ALT Alkaline Phosphatase Lactate Dehydrogenase Total Protein Albumin Globulin Albumin/Globulin Ratio Triglycerides Medical - DS: A/P - Patient/Caregiver Discharge Instructions Activity: as per physical therapy Diet: Renal/Consistent Carbs Additional Instructions: Please schedule patient for wound care clinic follow up for Right Gluteal wound before patient discharges home. You have been scheduled with Dr. Albright for December 15 @ 08:00AM. Please arrive @ 07:45 for new patient paperwork. Follow-up PCP in 5 days. Please call and schedule this appointment to fit your transportation needs. I recommend SNF physician to check CBC BMP UA as a posthospital follow-up in 1 week. Antibiotics for additional 5 days Continue aggressive bowel regimen to prevent constipation Continue fall precautions Continue aggressive PT OT evaluation and treatment at [facility]. ST eval and treatment if indicated All meals on chair sitting upright at 90 degrees to prevent aspiration Return to ER if worsening fever chills shortness of breath, diarrhea, bleeding Review risk and side effect profile of medications including antibiotics. Side effect may include mild to severe reaction including rash, diarrhea, cdiff and even which can be prevented by close follow-up with PCP and monitoring for side effects Continue diet and activity as advised Discussed importance of medication adherence Please review medication list with patient prior to discharge Portions of this chart may have been created with [employer] voice recognition software. Occasional wrong-word or ?sound-like? substitutions may have occurred due to the inherent limitations of voice recognition software. Please read the chart carefully and recognize, using context, where the substitutions have occurred. CC- PCP Prescriptions: Cefdinir 300 mg PO BID #10 cap Cyanocobalamin (Vitamin B-12) [Vitamin B-12] 1,000 mcg SL DAILY #30 tab Thiamine [Vitamin B1] 100 mg PO DAILY #30 tab traMADol [Ultram] 50 mg PO Q8H PRN #10 tab PRN Reason: Pain Other Amb Orders: OT Discharge Order Location: Determined By Patient Physical Therapy at Discharge - General Location: Determined By Patient - Follow up Plan Follow up with: Clifford Albright MD [Physician] - 12/15/17 8:00 am Higinio Mays MD [Primary Care Provider] - Disposition: Xfer [facility] Prognosis: Fair Rehab Potential: Good I certify that the patient requires SNF services: Yes Overall status at discharge: patient is progressing back to baseline Medical - DS: Qual - VTE Deep Vein Thrombosis/Pulmonary Embolism Present on Admission: No
[2017-12-06 07:17] LABS: ALT/SGPT 10 U/l (0-40); Albumin 3.3 gm/dL (3.2-5.2); Albumin/Globulin Ratio 0.9 (1.0-2.3); Alkaline Phosphatase 41 U/L (39-117); Bilirubin,Direct < 0.2 mg/dL (0.0-0.3); Blood Urea Nitrogen 30 mg/dl (8-23); Gamma Glutamyl Transpeptidase 13 U/L (5-36); Uric Acid 7.8 mg/dL (2.5-8.0)
[2017-12-06 08:58] LABS: Eosinophils % (Manual) 2 % (0-7); Lymphocytes % 22 % (15-49); Monocytes % (Manual) 7 % (1-12); Platelet Estimate NORMAL (NORMAL); RBC Morphology NORMAL (NORMAL); Segmented Neutrophils % 69 % (38-78)
[2017-12-06] MEDS: cefTRIAXone 2 GM VIAL IV SCH (09:04)
[2017-12-06] MEDS: FUROSEMIDE 20 MG/2 ML VIAL IV SCH (09:04)
[2017-12-06] MEDS: INSULIN GLARGINE, HUMAN 1 UNIT/0.01 ML SQ SCH (09:04)
[2017-12-06] MEDS: HEPARIN 5,000 UNIT/ML VIAL SQ SCH (09:05)
[2017-12-06] MEDS: amLODIPine 5 MG TABLET PO SCH (09:06)
[2017-12-06] MEDS: ASPIRIN 81 MG TAB.CHEW PO SCH (09:06)
[2017-12-06] MEDS: DOCUSATE SODIUM 100 MG CAPSULE PO SCH (09:06)
[2017-12-06] MEDS: MULTIVIT,THER IRON,CA,FA & MIN 1 TABLET PO SCH (09:06)
[2017-12-06] MEDS: LISINOPRIL 10 MG TABLET PO SCH (09:07)
[2017-12-06] MEDS: CYANOCOBALAMIN (VITAMIN B-12) 500 MCG TABLET PO SCH (09:56)
[2017-12-06] MEDS: THIAMINE 100 MG in 0.9 % SODIUM CHLORIDE 50 ML IV SCH (09:56)
== END 2017-12-06 09:45 | DRG 690 ==
LOC: ED 06:35 → MEDSUR 11:41
PROVIDERS: ADMIT Internal Medicine; ATTEND Family Medicine

== ENCOUNTER 2018-09-24 09:59 | Inpatient (IN) ==
[2018-09-24] MEDS ORDERED: 0.9 % SODIUM CHLORIDE 1,000 ML IV ONE ×2 (10:14→13:16)
--- NOTE | 2018-09-24 11:17 | Cat Scan Report ---
CLINICAL INFORMATION: Decreased level consciousness COMPARISON: None. TECHNIQUE: 2.5 mm helical slices were obtained in the skull base to vertex. Following reconstruction, axial reformatted images were reviewed at bone and parenchymal windows. The exam was performed using radiation dose optimization techniques including, but not limited to, automated exposure control, adjustment of the mA and/or kV according to patient size and use of iterative reconstruction technique. FINDINGS: The ventricles, sulci, fissures, and cisterns are symmetrically enlarged compatible with mild age-related atrophy - stable. No cerebral hemorrhage or extra-axial fluid collection appreciated. Scattered remote lacunar infarcts again noted: 1 cm left cerebellum, 1.3 similar left thalamus, 8 mm in the right lentiform nucleus with scattered punctate remote lacunar infarcts in the remainder of the deep cerebral white matter and the basal ganglia all unchanged. Patchy chronic ischemic changes which are White matter stable. There is no cerebral hemorrhage, mass effect, edema or other acute findings. Bone windows show no osseous abnormalities. IMPRESSION: Moderate atrophy, chronic ischemic changes deep cerebral white matter and scattered remote lacunar infarcts are all stable since 2015. There is no intracerebral hemorrhage or other acute finding. Interpreted and Authenticated by: Ahsan Otoole 09/24/18
[2018-09-24 11:36] LABS: Basophils # (Auto) 0.1 K/mcL (0.0-0.3); Basophils % (Auto) 0.8 % (0.0-2.0); Eosinophils # (Auto) 0.1 K/mcL (0.0-0.7); Eosinophils % (Auto) 2.1 % (0.0-7.0); Granulocytes % (Auto) 70.7 % (38.0-78.0); Lymphocytes # (Auto) 1.4 K/mcL (1.5-4.8); Mean Corpuscular HGB Conc 32.2 g/dL (31.0-36.0); Monocytes # (Auto) 0.5 K/mcL (0.1-0.9); Monocytes % (Auto) 6.4 % (1.0-12.0); Platelet Count 269 K/mcL (140-440); RBC 3.62 M/mcL (4.00-5.20); Red Cell Distribution Width 13.3 % (11.5-14.5)
--- NOTE | 2018-09-24 11:58 | XRay Report ---
CLINICAL INFORMATION: altered loc COMPARISON: 09/18/2018 FINDINGS: Borderline cardiomegaly is unchanged. Mediastinum and pulmonary vessels are normal. The lungs are clear. No effusions. IMPRESSION: Borderline cardiomegaly - stable. No acute disease Interpreted and Authenticated by: Ahsan Otoole 09/24/18
[2018-09-24 12:04] LABS: ALT/SGPT 7 U/l (0-40); Albumin 3.4 gm/dL (3.2-5.2); Albumin/Globulin Ratio 1.1 (1.0-2.3); Alkaline Phosphatase 37 U/L (39-117); Blood Urea Nitrogen 37 mg/dl (8-23)
[2018-09-24 12:14] LABS: Erythrocyte Sedimentation Rate 12 mm/hr (0-20)
[2018-09-24 12:35] LABS: Appearance,Urine HAZY; Bacteria,Urine FEW /hpf (0); Bilirubin,Urine NEG (NEG); Color,Urine YELLOW; Glucose,Urine (UA) NEGATIVE (NEG); Leukocyte Esterase,Urine 25 /uL (NEG); Mucus,Urine FEW /hpf (0); Protein,Urine NEG (NEG); Specific Gravity,Urine 1.014 (1.000-1.035); Urine Blood NEG mg/dL (<0.03); Urine Hyaline Cast 41 /lpf (0-2); Urine RBC < 1 /hpf (0-1); Urine Squamous Epithelial Cell 5 /hpf (0-4); Urine WBC 6 /hpf (0-4)
--- NOTE | 2018-09-24 13:10 | Emergency Department Note ---
Altered Mental Status HPI - General Chief Complaint: Altered Mental Status Stated Complaint: Decreased loc Time Seen by Provider: 09/24/18 10:54 Source: EMS Mode of arrival: EMS - History of Present Illness HPI Narrative: The patient is a 72-year-old female with a history of 9 previous strokes, legally blind, diabetes and severe dementia who presents via ambulance for con cerns of altered mental status. She lives with her daughter and her daughter states that this morning she was acting normally and then acutely changed and her daughter actually thought that she had as she was totally unresponsive. She called 911. Paramedics arrived and stated that she was acting acutely different than when they had recently taken her back to her home. Blood glucose was normal. She was unable to stand or pivot. Her vital signs have been stable. Family states that she has not been ill recently but hasn't quite felt right since last week. She was here in the emergency room last week for acute kidney injury, treated with IV fluids and discharged home. Family denies any vomiting or diarrhea at home. They state that she has limited her oral intake and hasn't wanted to eat or drink as much. They have been working with her primary care physician to get her into an assisted living facility at [facility]. They do not have care coming into the home. MD complaint: altered mental status Onset (ago): hour(s) Timing confirmed by: family member Severity: moderate Consistency of Symptoms: waxing and waning Associated symptoms: Reports: loss of appetite - Related Data Previous Rx's Medication Instructions Recorded pen needle, diabetic 31 gauge x See Dose Instructions .ROUTE 01/22/1811/26" .MEDSUPPLY #200 each insulin glargine (U-100) 100 30 unit SUB-Q QAM #15 ml 06/09/18 unit/mL (3 mL) subcutaneous pen lisinopril 20 mg tablet 20 mg PO QDAY #90 tab 07/02/18 furosemide 20 mg tablet 20 mg PO QDAY #90 tab 07/15/18 insulin lispro (U- 100) 100 10 unit SUB-Q QPM #15 ml 07/16/18 unit/mL subcutaneous pen Donut cushion #1 ea 09/04/18 Roho cushion #1 ea 09/04/18 tramadol 50 mg tablet 50 mg PO Q8H PRN #60 tab 09/17/18 Allergies Allergy/AdvReac Type Severity Reaction Status Date / Time No Known Drug Allergies Allergy Verified 09/24/18 10:00 Review of Systems All systems ED: reviewed and negative except as stated. Past Medical History - Past Medical History Source: old records reviewed, obtained from family Medical history: Reports: CVA, dementia, DM, GERD, hyperlipidemia, hypertension, seizures, other (Lymphedema) Surgical history ED: Reports: cholecystectomy, other (ovarian cyst) - Social History smoking status: Never smoker Physical Exam Limitations: altered mental status (initially refusing to talk, then mumbling words and then says "why am I here?') General appearance: obese Head: atraumatic Eye: Present: PERRL, EOMI ENT: mucous membranes dry Neck: Present: normal inspection Chest: Present: normal inspection Respiratory: Present: normal lung sounds bilaterally Cardiovascular: Present: regular rate, normal rhythm Abdominal: Present: soft, normal bowel sounds Rectal: Present: other (bowel incontinence x 3 episodes) Extremities: Present: pedal edema Neurological: Present: other (says she's at the hospital, oriented to self but not situation, closes eyes on request, sticks out tongue, tries to smile, moving all four extremities some but not lifting up against resistance. ) Psychiatric: Present: flat affect Skin: Present: warm, dry Course Course Narrative: This is a 72-year-old patient with a complicated medical history and recent change in behavior. See him last week and diagnosed with acute kidney injury without infection, treated with IV fluids and discharged home. Then acute change in mentation earlier this morning witnessed by her daughter with Robaxin and waning presentation here in the emergency room. At times it'll go in the room and she will converse almost normally and then other times cry out state why am I here. She did have 3 episodes of bowel incontinence here in the emergency room and a history of decreased oral intake at home. Lab work remarkable for creatinine of 1.4, the same as last week. She does have some taylor kocytes on urinalysis. Blood cultures were obtained. CT head negative for any new acute changes with chronic changes appreciated. Chest x-ray negative for acute changes. - Reevaluation(s) Reevaluation #1: Discussed with the hospitalist who graciously agreed to admit the patient for fluid resuscitation and monitoring of her altered mental status. Vital Signs Temperature 97.1 F 09/24/18 10:00 Pulse Rate 59 L 09/24/18 10:00 Respiratory Rate 16 09/24/18 10:00 Blood Pressure 97/50 09/24/18 10:00 Pulse Oximetry (%) 93 09/24/18 10:00 Temperature 97.1 F 09/24/18 10:00 Pulse Rate 78 09/24/18 13:56 Respiratory Rate 12 09/24/18 13:56 Blood Pressure 144/74 09/24/18 13:56 Pulse Oximetry (%) 97 09/24/18 13:56 Altered Mental Status - MDM Narrative Medical decision making narrative: 72-year-old woman with progressive decline in function and significant medical history with strokes, legal blindness and dementia presenting with decreased oral intake, waxing and waning mentation. Urinalysis showed positive leukocytes and her acute kidney injury has persisted with a creatinine of 1.4. Limited to hospital for further monitoring and hopefully outpatient placement at a halfway facility. - Lab Data Lab results reviewed: Yes I reviewed the patient's lab results. Result diagrams: 09/24/18 11:03 09/24/18 11:03 Lab Results 09/24/18 09/24/18 09/24/18 Range/Units 11:03 11:03 11:03 WBC 7.0 (4.5-11.0) K/mcL RBC 3.62 L (4.00-5.20) M/mcL Hgb 10.7 L (12.0-15.0) g/dL Hct 33.3 L (36.0-48.0) % MCV 92.0 (80.0-100.0) fL MCH 29.6 (26.0-34.0) pg MCHC 32.2 (31.0-36.0) g/dL RDW 13.3 (11.5-14.5) % Plt Count 269 (140-440) K/mcL MPV 7.7 (7.4-10.4) fL Gran % 70.7 (38.0-78.0) % Lymph % (Auto) 20.0 (15.5-49.0) % [place] % (Auto) 6.4 (1.0-12.0) % Eos % (Auto) 2.1 (0.0-7.0) % Baso % (Auto) 0.8 (0.0-2.0) % Gran # 5.0 (1.8-8.0) K/mcL Lymph # (Auto) 1.4 L (1.5-4.8) K/mcL [place] # (Auto) 0.5 (0.1-0.9) K/mcL Eos # (Auto) 0.1 (0.0-0.7) K/mcL Baso # (Auto) 0.1 (0.0-0.3) K/mcL ESR 12 (0-20) mm/hr VBG Lactic Acid 1.0 (0.5-2.0) mmol/L Sodium 141 (133-145) mmol/L Potassium 4.5 (3.3-5.1) mmol/L Chloride 103 (96-108) mmol/L Carbon Dioxide 25 (22-30) mmol/L Anion Gap 13.0 (8-16) BUN 37 H (8-23) mg/dl Creatinine 1.4 H (0.6-1.1) mg/dl GFR Calculation 37 Glucose 134 H (70-105) mg/dL Calcium 8.9 (8.6-10.4) mg/dl Total Bilirubin 0.5 (0.0-1.0) mg/dL AST 15 (0-37) U/l ALT 7 (0-40) U/l Alkaline Phosphatase 37 L (39-117) U/L Total Protein 6.4 (5.9-8.4) gm/dL Albumin 3.4 (3.2-5.2) gm/dL Globulin 3.0 (2.2-3.7) gm/dL Albumin/Globulin Ratio 1.1 (1.0-2.3) Urine Color Urine Appearance Urine pH (5.0-9.0) Ur Specific [place] (1.000-1.035) Urine Protein (NEG) mg/dL Urine Glucose (UA) (NEG) mg/dL Urine Ketones (NEG) mg/dL Urine Occult Blood (<0.03) mg/dL Urine Nitrate (NEG) Urine Bilirubin (NEG) mg/dL Urine Urobilinogen (NEG) mg/dL Ur Leukocyte Esterase (NEG) /uL Urine RBC (0-1) /hpf Urine WBC (0-4) /hpf Ur Squamous Epith Cells (0-4) /hpf Urine Bacteria (0) /hpf Hyaline Casts (0-2) /lpf Urine Mucus (0) /hpf Ur Culture Indicated? 09/24/18 Range/Units 12:01 WBC (4.5-11.0) K/mcL RBC (4.00-5.20) M/mcL Hgb (12.0-15.0) g/dL Hct (36.0-48.0) % MCV (80.0-100.0) fL MCH (26.0-34.0) pg MCHC (31.0-36.0) g/dL RDW (11.5-14.5) % Plt Count (140-440) K/mcL MPV (7.4-10.4) fL Gran % (38.0-78.0) % Lymph % (Auto) (15.5-49.0) % [place] % (Auto) (1.0-12.0) % Eos % (Auto) (0.0-7.0) % Baso % (Auto) (0.0-2.0) % Gran # (1.8-8.0) K/mcL Lymph # (Auto) (1.5-4.8) K/mcL [place] # (Auto) (0.1-0.9) K/mcL Eos # (Auto) (0.0-0.7) K/mcL Baso # (Auto) (0.0-0.3) K/mcL ESR (0-20) mm/hr VBG Lactic Acid (0.5-2.0) mmol/L Sodium (133-145) mmol/L Potassium (3.3-5.1) mmol/L Chloride (96-108) mmol/L Carbon Dioxide (22-30) mmol/L Anion Gap (8-16) BUN (8-23) mg/dl Creatinine (0.6-1.1) mg/dl GFR Calculation Glucose (70-105) mg/dL Calcium (8.6-10.4) mg/dl Total Bilirubin (0.0-1.0) mg/dL AST (0-37) U/l ALT (0-40) U/l Alkaline Phosphatase (39-117) U/L Total Protein (5.9-8.4) gm/dL Albumin (3.2-5.2) gm/dL Globulin (2.2-3.7) gm/dL Albumin/Globulin Ratio (1.0-2.3) Urine Color Yellow Urine Appearance Hazy Urine pH 5.0 (5.0-9.0) Ur Specific [place] 1.014 (1.000-1.035) Urine Protein Neg (NEG) mg/dL Urine Glucose (UA) Negative (NEG) mg/dL Urine Ketones Neg (NEG) mg/dL Urine Occult Blood Neg (<0.03) mg/dL Urine Nitrate Neg (NEG) Urine Bilirubin Neg (NEG) mg/dL Urine Urobilinogen 2.0 A (NEG) mg/dL Ur Leukocyte Esterase 25 A (NEG) /uL Urine RBC < 1 (0-1) /hpf Urine WBC 6 H (0-4) /hpf Ur Squamous Epith Cells 5 H (0-4) /hpf Urine Bacteria Few A (0) /hpf Hyaline Casts 41 H (0-2) /lpf Urine Mucus Few (0) /hpf Ur Culture Indicated? No Disposition Pt seen by LABEL FUSER TENDER/PA only: No Clinical Impression: Altered mental status Disposition: Xfer As Inpt ([facility]) Referrals: Higinio Mays MD [Primary Care Provider] -
--- NOTE | 2018-09-24 14:55 | Internal Med History&Physical ---
Medical - H&P: HPI Patient information: Note initiated : 09/24/18 at 2:49 pm Service Date, if different from initiated Date: [] Patient: Nicole Wolf a 72 y/o F admitted on for Decreased loc. Chief Complaint: [] History of present illness: Ms. Wolf is a 72 year old F Presents the ED for altered mental status. History is obtained from chart and daughters. The patient lives with her daughter. Per the daughter patient was normal this morning talkative and the daughter was going through morning routine with the patient patient was sitting in a chair daughter stepped out and came back and roughly about a 45 the patient appeared to be unresponsive. Patient still sitting in her chair with her head slightly s marcy bent and the patient had a glazed look in her eye, and was clammy per the daughter. EMS arrived who had seen her in the past and noted that she was altered compared to usual. She is brought in the ED where after some time she started to become more responsive. At a time of my exam she was able to talk to me and answer questions although could only give me a poor review of systems. She denies any chest or abdominal pain headache fever chills. Her daughter is noted diarrhea this morning which she did not have yesterday and is unusual for her. cough per daughters She was seen in either ED about a week ago with a little bit of altered numbness and weakness found to have acute kidney injury given IV fluids. In the ER she had a chest x-ray which is unremarkable CT brain which showed mul tiple old infarcts and atrophy but nothing new. Lactate and ESR were okay. She is afebrile no leukocytosis. Renal function was similar to function on Friday in the ED. The daughters are unable to care for the patient patient is home alone while her daughter is at work. Patient has poor oral intake and sits in a chair all day long. Family has been trying to get her to a long-term facility and they are currently in the process. Review of Systems: Pertinent positive as above. Denies headache/fever/chills/nausea/vomiting/chest or abdominal pain/dyspnea. Remaining 10 point review of system reviewed negative Medical - H&P: PMH Medical history: Medical History Urinary tract infection (Acute) UTI (urinary tract infection) (Acute) Generalized weakness (Acute) Advanced dementia (Acute) Complicated UTI (urinary tract infection) (Acute) Degenerative joint disease of knee, right (Chronic) Fall (Chronic) Constipation (Chronic) Generalized pain (Chronic) Retinopathy, diabetic, background (Chronic) Peripheral edema (Chronic) Right lumbar radiculopathy (Chronic) Urine frequency (Chronic) Balance disorder (Chronic) Elevated blood sugar (Chronic) Stroke (Chronic) Seizures (Chronic) Acid reflux (Chronic) Heartburn (Chronic) Indigestion (Chronic) Hypercholesterolemia (Chronic) Gallbladder problem (Chronic) DMII (diabetes mellitus, type 2) (Chronic) Past Surgical History Hx of cholecystectomy (Chronic) Family History Unknown Diabetes mellitus She does not know her mother or her father's medical history Social History (Last Reviewed 09/23/18 @ 10:44 by Margarita Garcia [facility]) Patient uses a walker to ambulate no alcohol or tobacco use, lives at home with her daughter. Family has been trying to get her into a long-term facility for some time Medical - H&P: Meds Home Medications Medication Instructions Recorded Confirmed Type pen needle, diabetic 31 gauge x See Dose Instructions .ROUTE 01/22/18 09/23/18 Rx 11/26" .MEDSUPPLY #200 each insulin glargine (U-100) 100 30 unit SUB-Q QAM #15 ml 06/09/18 09/24/18 Rx unit/mL (3 mL) subcutaneous pen lisinopril 20 mg tablet 20 mg PO QDAY #90 tab 07/02/18 09/24/18 Rx furosemide 20 mg tablet 20 mg PO QDAY #90 tab 07/15/18 09/24/18 Rx insulin lispro (U- 100) 100 10 unit SUB-Q QPM #15 ml 07/16/18 09/24/18 Rx unit/mL subcutaneous pen Donut cushion #1 ea 09/04/18 09/23/18 Rx Roho cushion #1 ea 09/04/18 09/23/18 Rx tramadol 50 mg tablet 50 mg PO Q8H PRN #60 tab 09/17/18 09/24/18 Rx Allergies Allergy/AdvReac Type Severity Reaction Status Date / Time No Known Drug Allergies Allergy Verified 09/24/18 10:00 Medical - H&P: Exam - Constitutional Vitals: Temp Pulse Resp BP Pulse Ox 97.1 F 78 12 144/74 97 09/24/18 10:00 09/24/18 13:56 03/14/19 13:56 09/24/18 13:56 09/24/18 13:56 Exam: General: Awake, No acute Distress Eyes/N/T: Legally blind, DMM Head/Neck: neck supple, normocephalic atraumatic CV: RRR, No murmurs, normal s1/s2 Pulm: Clear b/l, no wheezing/rhonchi/rales Abd: soft, distended, TTP throughout, +BS x4 Ext: no clubbing/cyanosis, 1+ b/l LE chronic Neuro: Appears drowsy but responds to my questions alert easily, no appreciable facial asymmetry, metrical knitting machine fixer head strength although weak, symmetrical lower extremity strength although weak sensations appear to be intact bilateral lower. She is oriented to person, that she was in a hospital, could not tell me the president of [facility], and she thought it was August. Skin: warm/dry Medical - H&P: Reslt - Labs CBC & Chem 7: 09/24/18 11:03 09/24/18 11:03 Labs: Short CBC 09/24/18 Range/Units 11:03 WBC 7.0 (4.5-11.0) K/mcL Hgb 10.7 L (12.0-15.0) g/dL Hct 33.3 L (36.0-48.0) % Plt Count 269 (140-440) K/mcL BMP 09/24/18 11:03 Sodium 141 Potassium 4.5 Chloride 103 Carbon Dioxide 25 BUN 37 H Creatinine 1.4 H Glucose 134 H Calcium 8.9 Liver Function 09/24/18 Range/Units 11:03 Total Bilirubin 0.5 (0.0-1.0) mg/dL AST 15 (0-37) U/l ALT 7 (0-40) U/l Alkaline Phosphatase 37 L (39-117) U/L Albumin 3.4 (3.2-5.2) gm/dL Urine 09/24/18 Range/Units 12:01 Urine Color Yellow Urine Appearance Hazy Urine pH 5.0 (5.0-9.0) Ur Specific [place] 1.014 (1.000-1.035) Urine Protein Neg (NEG) mg/dL Urine Glucose (UA) Negative (NEG) mg/dL - Impressions Chest x-ray unremarkable CT brain with moderate atrophy and old infarcts noted. No acute pathology noted Medical - H&P: A/P - Narrative A/P Narrative: A: *AMS (decreased LOC): -CT brain negative *EDUIN on CKD III: poor oral intake *Volume depletion: *?UTI: *Diarrhea: *Advanced Dementia: *Deconditioning/Debility: *h/o CVA's x9: *HTN: on norvasc/lisinopril *h/o Urinary incontinence: wears Depend's at home * P: -IVF's -repeat UA, abx held for now (no leukocytosis, afebrile -no SIRS) -ct a/p -stool studies/cx's -hold ACEI for EDUIN, restart norvasc in AM -clarify meds - -SSI and basal -pt/ot -CM for SNF placement - -ppx: lovenox
[2018-09-24] MEDS ORDERED: ACETAMINOPHEN 325 MG TABLET PO PRN (15:19)
[2018-09-24] MEDS ORDERED: POLYETHYLENE GLYCOL 3350 17 GM PACKET PO PRN (15:19)
[2018-09-24] MEDS ORDERED: IPRATROPIUM/ALBUTEROL 3 ML AMPUL.NEB NEB PRN (15:19)
[2018-09-24] MEDS ORDERED: ONDANSETRON 4 MG/2 ML VIAL IV PRN (15:19)
[2018-09-24] MEDS ORDERED: PROCHLORPERAZINE 10 MG/2 ML VIAL IV PRN (15:19)
[2018-09-24] MEDS ORDERED: PROMETHAZINE 25 MG TABLET PO PRN (15:19)
[2018-09-24] MEDS ORDERED: hydrALAZINE 20 MG/ML VIAL IV PRN (15:19)
[2018-09-24] MEDS ORDERED: POTASSIUM CHLORIDE 40 MEQ in DEXTROSE 5% IN WATER 500 ML IV PRN (15:19)
[2018-09-24] MEDS ORDERED: POTASSIUM CHLORIDE 20 MEQ TABLET PO PRN ×2 (15:19)
[2018-09-24] MEDS ORDERED: DEXTROSE 50% 50 ML VIAL IV PRN (15:19)
[2018-09-24] MEDS ORDERED: MAGNESIUM SULFATE 2 GM/50 ML BAG IV PRN (15:19)
[2018-09-24] MEDS ORDERED: DEXTROSE 31 GM ORAL.SUSP PO PRN (15:19)
[2018-09-24] MEDS: ASPIRIN 81 MG TAB.CHEW PO SCH (16:10)
[2018-09-24] MEDS: 0.9 % SODIUM CHLORIDE 1,000 ML IV SCH (16:10)
[2018-09-24 16:35] LABS: Basophils % (Manual) 1 % (0-2); Eosinophils % (Manual) 3 % (0-7); Lymphocytes % 23 % (15-49); Monocytes % (Manual) 6 % (1-12); Platelet Estimate NORMAL (NORMAL); RBC Morphology NORMAL (NORMAL); Segmented Neutrophils % 67 % (38-78)
[2018-09-24 16:59] LABS: Appearance,Urine CLEAR; Bacteria,Urine 0 /hpf (0); Bilirubin,Urine NEG (NEG); Color,Urine YELLOW; Glucose,Urine (UA) NEGATIVE (NEG); Leukocyte Esterase,Urine 25 /uL (NEG); Mucus,Urine FEW /hpf (0); Protein,Urine NEG (NEG); Specific Gravity,Urine 1.011 (1.000-1.035); Urine Blood NEG mg/dL (<0.03); Urine Hyaline Cast 13 /lpf (0-2); Urine RBC 9 /hpf (0-1); Urine Squamous Epithelial Cell 1 /hpf (0-4); Urine WBC 5 /hpf (0-4); Urobilinogen,Urine NEG (NEG)
[2018-09-24] MEDS: INSULIN LISPRO 1 UNIT/0.01 ML UNIT SQ SCH ×2 (17:00→21:11)
--- NOTE | 2018-09-24 18:10 | Cat Scan Report ---
CLINICAL INFORMATION: Abdominal pain COMPARISON: Abdomen and pelvic CT 08/02/2007 TECHNIQUE: 0.625 mm helical slices were obtained from the mid heart through the subtrochanteric regions. Following reconstruction, 2.5 mm sagittal, coronal and axial reformatted images were processed and reviewed at bone and soft tissue windows.The exam was performed using radiation dose optimization techniques including, but not limited to, automated exposure control, adjustment of the mA and/or kV according to patient size and use of iterative reconstruction technique. FINDINGS: Lung bases show minimal scarring and/or atelectasis. Small segment of cicitration bronchiectasis involving the subsegmental medial basilar bronchi of the right lower lobe is appreciated. There is a new finding since 2007. No effusions. The visualized heart is mildly enlarged. Small hiatal hernia is noted. Images through the abdomen the noncontrasted liver is normal in size configuration and attenuation. The gallbladder is surgically absent. The intrahepatic and extra hepatic ducts are normal caliber: CBD is 5 mm. Bilateral adrenal adenomas, each approximately 2.7 cm, are unchanged. There is a 3 mm nonobstructing stone mid calyx of the left kidney. The remainder of both kidneys are normal. A 6.2 cm cyst in the left perinephric fat with the slow increase in size from 4 cm [address] the [address] CT. There is no free air, free fluid or adenopathy. Images through the pelvis show a Kraft catheter probably positioned in the urinary bladder decompressing the bladder. Postmenopausal anteflexed uterus is normal size with 4 x 4.3 cm. There is a massive adnexal cyst arising from the true pelvis and dominating the entire anterior false pelvis. Small and large bowel loops are displaced around this entity. And also compresses the urinary bladder. It has slowly increased in size from 12 cm 2008 to 20 cm on today's study. In addition the attenuation has increased from 02 28 Hounsfield units implying very small amount of hemorrhage or, less likely, infection. Bone windows show only degenerative change IMPRESSION: 1. Massive (22 cm) cyst originating from the adnexa and dominating the anterior true and false pelvis. Small and large bowel loops are displaced and the mass compresses the urinary bladder. This been previously biopsied and known to be benign. The extremely slow long-term slow growth over the past 12 years would also support a benign diagnosis. If the patient is symptomatic from this large cyst, consider ultrasound-guided drain placement and alcohol ablation 2. 3 mm nonobstructing stone - mid calyx of left kidney 3. 6.2 cm left perinephric simple cyst 4. 2.4 cm bilateral adrenal adenomas demonstrating long-term stability Interpreted and Authenticated by: Ahsan Otoole 09/24/18
[2018-09-24 18:16] LABS: ABG Methemoglobin 0.3 % (0.4-1.5); VBG Base Excess -0.5 (-2.0-2.0); VBG HCO3 25.2 mmol/L (24.0-28.0); VBG Oxygen Saturation 82.4 % (40.0-70.0); VBG PCO2 46.3 mmHg (41.0-51.0); VBG PH 7.35 U (7.32-7.42); VBG PO2 58 mmHg (25-40); VBG Total CO2 26.6 mmol/L (25.0-29.0)
[2018-09-24] MEDS: cefTRIAXone 1 GM VIAL IV SCH (19:29)
[2018-09-24 20:29] LABS: HDL Cholesterol 53 mg/dl (>40); LDL Cholesterol,Calculated 115 mg/dl (SEE CHART)
[2018-09-24] MEDS ORDERED: ATORVASTATIN 20 MG TABLET PO SCH ×2 (21:00)
[2018-09-24] MEDS: ATORVASTATIN 20 MG TABLET PO SCH (22:34)
[2018-09-24] MEDS: 0.9 % SODIUM CHLORIDE 10 ML SYRINGE IV SCH (22:34)
[2018-09-25] MEDS: 0.9 % SODIUM CHLORIDE 1,000 ML IV SCH (00:48)
[2018-09-25] MEDS: traMADol 50 MG TABLET PO PRN ×2 (00:49→08:12)
[2018-09-25 04:20] LABS: Basophils # (Auto) 0.1 K/mcL (0.0-0.3); Basophils % (Auto) 0.5 % (0.0-2.0); Eosinophils # (Auto) 0.2 K/mcL (0.0-0.7); Eosinophils % (Auto) 1.8 % (0.0-7.0); Granulocytes % (Auto) 69.4 % (38.0-78.0); Lymphocytes # (Auto) 1.9 K/mcL (1.5-4.8); Lymphocytes % (Auto) 20.8 % (15.5-49.0); Mean Cell Volume 91.8 fL (80.0-100.0); Mean Corpuscular HGB Conc 32.4 g/dL (31.0-36.0); Monocytes # (Auto) 0.7 K/mcL (0.1-0.9); Monocytes % (Auto) 7.5 % (1.0-12.0); Platelet Count 253 K/mcL (140-440); RBC 3.47 M/mcL (4.00-5.20); Red Cell Distribution Width 13.2 % (11.5-14.5)
[2018-09-25 04:39] LABS: ALT/SGPT 9 U/l (0-40); Albumin 3.1 gm/dL (3.2-5.2); Alkaline Phosphatase 37 U/L (39-117); Bilirubin,Direct < 0.2 mg/dL (0.0-0.3); Blood Urea Nitrogen 32 mg/dl (8-23); Gamma Glutamyl Transpeptidase 12 U/L (5-36); Uric Acid 7.6 mg/dL (2.5-8.0)
[2018-09-25] MEDS: 0.9 % SODIUM CHLORIDE 10 ML SYRINGE IV SCH ×4 (05:50→22:28)
--- NOTE | 2018-09-25 07:11 | Internal Med Progress Note ---
Medical - PN: Subj Patient information: Note initiated : 09/25/18 at 7:03 am Service Date, if different from initiated Date: [] Patient: Nicole Wolf a 72 y/o F admitted on 09/24/18 for Decreased loc. Chief Complaint: [] Interval history: Ms. Wolf is a 72 year old F Presents the ED for altered mental status. History is obtained from chart and daughters. The patient lives with her daughter. Per the daughter patient was normal this morning talkative and the daughter was going through morning routine with the patient patient was sitting in a chair daughter stepped out and came back and roughly about a 45 the patient appeared to be unresponsive. Patient still sitting in her chair with her head slightly side bent and the patient had a glazed look in her eye, and was clammy per the daughter. EMS arrived who had seen her in the past and noted that she was altered compared to usual. She is brought in the ED where after some time she started to become more responsive. At a time of my exam she was able to talk to me and answer questions although could only give me a poor review of systems. She denies any chest or abdominal pain headache fever chills. Her daughter is noted diarrhea this morning which she did not have yesterday and is unusual for her. cough per daughters She was seen in either ED about a week ago with a little bit of altered numbness and weakness found to have acute kidney injury given IV fluids. In the ER she had a chest x-ray which is unremarkable CT brain which showed mult iple old infarcts and atrophy but nothing new. Lactate and ESR were okay. She is afebrile no leukocytosis. Renal function was similar to function on Friday in the ED. The daughters are unable to care for the patient patient is home alone while her daughter is at work. Patient has poor oral intake and sits in a chair all day long. Family has been trying to get her to a shelter facility and they are currently in the process. 09/25 Feeling well slept well. No overnight events. Patient alert and awake cooperative answering questions appropriately. Denies any abdominal pain over the cyst area. Review of Systems: denies headache/fever/chills/nausea/vomiting/chest or abdominal cecelia n/cough/dyspnea/diarrhea. Otherwise see above. - Constitutional Vitals: Vital Signs Temp Pulse Resp BP Pulse Ox 97.7 F 72 18 138/68 95 09/24/18 20:00 09/25/18 04:00 09/25/18 04:00 09/25/18 04:00 09/25/18 04:00 Period Temp Pulse Resp BP Sys/Daniels Pulse Ox Last 24 Hr 97.1 F-98.0 F 59-78 12-29 97-148/47-74 93-99 Intake and Output 09/24/18 09/25/18 09/25/18 21:59 05:59 13:59 Intake Total 1960 1000 Output Total 150 950 Balance 1810 50 Weight 109.769 kg Intake & Output: Intake & Output 09/24/18 09/25/18 09/25/18 21:59 05:59 13:59 Intake Total 1960 1000 Output Total 150 950 Balance 1810 50 Weight 109.769 kg Intake: IV 1000 1000 Sodium Chloride 0.9% 1,000 ml @ 1000 1000 125 mls/hr IV .Q8H [facility] Rx#: [id number] Oral 960 Output: Urine Catheter Amount 150 950 Other: Meal Dinner Percent of Meal Consumed 10% Feeding Ability Total Assistance Urine Appearance Clear Clear Uretheral (Kraft) Clear Urine Color Bright Yellow Uretheral (Kraft) Bright Yellow Urine Odor Normal Stool Size Moderate Stool Color Brown Stool Consistency Liquid Loose # of times incontinent of 1 Bowels Exam: General: Awake, No acute Distress Eyes/N/T: Legally blind, Head/Neck: neck supple, CV: RRR, No murmurs, Pulm: Clear b/l, no wheezing/rhonchi/rales Abd: soft, nontender, distended over cyst side, +BS x4 Ext: no clubbing/cyanosis, 1+ b/l LE chronic Neuro: A&Ox4, follows all commands, moves all extremities Skin: warm/dry Medical - PN: Obj Da - Labs CBC & Chem 7: 09/25/18 03:15 09/25/18 03:15 Labs: Abnormal Lab Results 09/25/18 09/25/18 09/24/18 03:15 03:15 19:54 RBC 3.47 L Hgb 10.3 L Hct 31.8 L Lymph # (Auto) ABG Methemoglobin VBG pO2 VBG O2 Saturation Carboxyhemoglobin Total Hemoglobin BUN 32 H Creatinine 1.2 H Glucose Calcium 8.2 L Alkaline Phosphatase 37 L Albumin 3.1 L LDL Cholesterol, Calc 115 H Urine Ketones Urine Urobilinogen Ur Leukocyte Esterase Urine RBC Urine WBC Ur Squamous Epith Cells Urine Bacteria Hyaline Casts 09/24/18 09/24/18 09/24/18 17:55 16:00 12:01 RBC Hgb Hct Lymph # (Auto) ABG Methemoglobin 0.3 L VBG pO2 58 H VBG O2 Saturation 82.4 H Carboxyhemoglobin 4.1 H Total Hemoglobin 10.8 L BUN Creatinine Glucose Calcium Alkaline Phosphatase Albumin LDL Cholesterol, Calc Urine Ketones 5/tr A Urine Urobilinogen 2.0 A Ur Leukocyte Esterase 25 A 25 A Urine RBC 9 H Urine WBC 5 H 6 H Ur Squamous Epith Cells 5 H Urine Bacteria Few A Hyaline Casts 13 H 41 H 09/24/18 09/24/18 11:03 11:03 RBC 3.62 L Hgb 10.7 L Hct 33.3 L Lymph # (Auto) 1.4 L ABG Methemoglobin VBG pO2 VBG O2 Saturation Carboxyhemoglobin Total Hemoglobin BUN 37 H Creatinine 1.4 H Glucose 134 H Calcium Alkaline Phosphatase 37 L Albumin LDL Cholesterol, Calc Urine Ketones Urine Urobilinogen Ur Leukocyte Esterase Urine RBC Urine WBC Ur Squamous Epith Cells Urine Bacteria Hyaline Casts Meds: Medications Acetaminophen (Tylenol) 650 mg PO Q6HP PRN PRN Reason: PAIN/FEVER > 101 Albuterol/Ipratropium (Duoneb) 3 ml NEB Q4HP PRN PRN Reason: Shortness Of Breath Amlodipine Besylate (Norvasc) 5 mg PO DAILY [facility] Aspirin (Aspirin) 81 mg PO DAILY [facility] Last Admin: 09/24/18 16:10 Dose: 81 mg Documented by: Atorvastatin Calcium (Lipitor) 20 mg PO HS [facility] Last Admin: 09/24/18 22:34 Dose: 20 mg Documented by: Ceftriaxone Sodium (Rocephin) 1 gm IV DAILY [facility]; Protocol Last Admin: 09/24/18 19:29 Dose: 1 gm Documented by: Dextrose (Dextrose 50%) 0 ml IV UD PRN PRN Reason: Hypoglycemia Diagnostic Test (Pha) (Accu-Chek) 1 each FS ACHS [facility] Last Admin: 09/24/18 21:47 Dose: 1 each Documented by: Enoxaparin Sodium (Lovenox) 40 mg SQ DAILY [facility] Glucose (Insta-Glucose) 15 gm PO PRN PRN PRN Reason: Hypoglycemia Hydralazine HCl (Apresoline) 0 mg IV Q2HP PRN PRN Reason: Hypertension Potassium Chloride 40 meq/ (Dextrose) 520 mls @ 130 mls/hr IV ONCE PRN PRN Reason: Potassium < 3 Magnesium Sulfate (Magnesium Sulfate) 2 gm in 50 mls @ 50 mls/hr IV ONCE PRN PRN Reason: Magnesium </= 1.6 Sodium Chloride (Sodium Chloride 0.9%) 1,000 mls @ 125 mls/hr IV .Q8H [facility] Stop: 09/25/18 07:18 Last Admin: 09/25/18 00:48 Dose: 125 mls/hr Documented by: Insulin Glargine (Lantus) 30 unit SQ DAILY [facility] Insulin Human Lispro (Humalog) 0 unit SQ ACHS [facility]; Protocol Last Admin: 09/24/18 21:11 Dose: Not Given Documented by: Ondansetron HCl (Zofran) 4 mg IV Q4HP PRN PRN Reason: Nausea And Vomiting Pantoprazole Sodium (Protonix) 40 mg PO QAMAC [facility] Pneumococcal Polyvalent Vaccine (Pneumovax 23) 0.5 ml IM .ONCE ONE Stop: 09/26/18 10:01 Polyethylene Glycol (Miralax) 17 gm PO DAILYP PRN PRN Reason: Constipation Potassium Chloride (Kdur) 40 meq PO ONCE PRN PRN Reason: Potssium is 3-3.5 Potassium Chloride (Kdur) 40 meq PO ONCE PRN PRN Reason: Potassium < 3 Prochlorperazine (Compazine) 10 mg IV Q6HP PRN PRN Reason: Nausea And Vomiting Promethazine HCl (Phenergan) 0 mg PO Q6HP PRN PRN Reason: Nausea And Vomiting Sodium Chloride (Saline Flush) 10 ml IV Q8 [facility] Last Admin: 09/25/18 05:50 Dose: 10 ml Documented by: Tramadol HCl (Ultram) 50 mg PO Q8HP PRN PRN Reason: Pain Last Admin: 09/25/18 00:49 Dose: 50 mg Documented by: - ABG Interpretation ABG results: 09/24/18 17:55 ABG Methemoglobin 0.3 L VBG pH 7.35 VBG pCO2 46.3 VBG pO2 58 H VBG HCO3 25.2 VBG Total CO2 26.6 VBG O2 Saturation 82.4 H VBG Base Excess -0.5 Medical - PN: A/P - Time Spent With Patient Total time spent is greater than 50% in coordination of care (as documented) at patient's floor/unit and/or counseling patient: - Narrative A/P Narrative: A: *AMS (decreased LOC): 2/2 dehydration/EDUIN/?UTI superimposed on underlying Dementia and -CT brain negative -RESolved *EDUIN on CKD III: poor oral intake -improved with IVF *Volume depletion: resolved *?UTI: *Diarrhea: c. diff neg *Advanced Dementia: *Deconditioning/Debility/Inability to care for self: *h/o CVA's x9: takes ASA at home, don't see statin *HTN: on norvasc/lisinopril *h/o Urinary incontinence: wears Depend's at home *Adnexa Pelvic Cyst, large: previously known/biopsied and drained in past -no abdominal pain P: -IVF's finish -pending UC, rocephin -hold ACEI for EDUIN, restart norvasc -ASA/statin -SSI and basal -pt/ot -CM for SNF placement -f/u outpt regarding known adnexa cyst for potential drainage -ppx: lovenox Medical - PN: Qual - Stroke Symptom Onset Unknown: No - VTE Deep Vein Thrombosis/Pulmonary Embolism Present on Admission: No
[2018-09-25] MEDS: INSULIN LISPRO 1 UNIT/0.01 ML UNIT SQ SCH ×5 (07:21→20:49)
[2018-09-25] MEDS ORDERED: PANTOPRAZOLE 40 MG TABLET PO SCH (07:30)
[2018-09-25] MEDS: cefTRIAXone 1 GM VIAL IV SCH (08:14)
[2018-09-25] MEDS: ASPIRIN 81 MG TAB.CHEW PO SCH (08:37)
[2018-09-25] MEDS ORDERED: ENOXAPARIN 40 MG/0.4 ML SYRINGE SQ SCH (09:00)
[2018-09-25] MEDS ORDERED: amLODIPine 5 MG TABLET PO SCH (09:00)
[2018-09-25] MEDS ORDERED: INSULIN GLARGINE, HUMAN 1 UNIT/0.01 ML SQ SCH (09:00)
--- NOTE | 2018-09-25 11:16 | Discharge Summary ---
Medical - DS: Prov Patient information: Note initiated : 09/25/18 at 11:12 am Service Date, if different from initiated Date: [] Patient: Nicole Wolf 72 y/o F admitted on 09/24/18 for Decreased loc. Chief Complaint: [] Date of admission: 09/24/18 15:11 Discharge date: 09/28/18 Primary care physician: Higinio aMys Consults: 09/24/18 13:16 Consult to Physician [CONS] Stat Comment: Consulting Provider: Brice Mack Reason For Exam: Physician to Consult Medical - DS: Meds - Discharge Medications Prescriptions: Aspirin 81 mg PO DAILY #30 tab.chew Atorvastatin [Lipitor] 20 mg PO HS #30 tab Active and Home Medications: Home Medications pen needle, diabetic 31 gauge x 5/16" See Dose Instructions .ROUTE .MEDSUPPLY #200 each 01/22/18 [Rx Confirmed 09/23/18 Last Taken Unknown] insulin glargine (U-100) 100 unit/mL (3 mL) subcutaneous pen 30 unit SUB-Q QAM #15 ml 06/09/18 [Rx Confirmed 09/24/18 Last Taken Unknown] lisinopril 20 mg tablet 20 mg PO QDAY #90 tab 07/02/18 [Rx Confirmed 09/24/18 Last Taken Unknown] furosemide 20 mg tablet 20 mg PO QDAY #90 tab 07/15/18 [Rx Confirmed 09/24/18 Last Taken Unknown] insulin lispro (U- 100) 100 unit/mL subcutaneous pen 10 unit SUB-Q QPM #15 ml 07/16/18 [Rx Confirmed 09/24/18 Last Taken Unknown] Donut cushion #1 ea 09/04/18 [Rx Confirmed 09/23/18 Last Taken Unknown] Kimo cushion #1 ea 09/04/18 [Rx Confirmed 09/23/18 Last Taken Unknown] tramadol 50 mg tablet 50 mg PO Q8H PRN #60 tab 09/17/18 [Rx Confirmed 09/24/18 Last Taken Unknown] amLODIPine [Norvasc] 5 mg PO DAILY 09/25/18 [History Confirmed 09/25/18 Last Taken 09/23/18 09:00] Home Medications pen needle, diabetic 31 gauge x 5/16" See Dose Instructions .ROUTE .MEDSUPPLY #200 each 01/22/18 [Rx Confirmed 09/23/18 Last Taken Unknown] insulin glargine (U-100) 100 unit/mL (3 mL) subcutaneous pen 30 unit SUB-Q QAM #15 ml 06/09/18 [Rx Confirmed 09/24/18 Last Taken Unknown] lisinopril 20 mg tablet 20 mg PO QDAY #90 tab 07/02/18 [Rx Confirmed 09/24/18 Last Taken Unknown] insulin lispro (U- 100) 100 unit/mL subcutaneous pen 10 unit SUB-Q QPM #15 ml 07/16/18 [Rx Confirmed 09/24/18 Last Taken Unknown] Deepak cushion #1 ea 09/04/18 [Rx Confirmed 09/23/18 Last Taken Unknown] Sophy cushion #1 ea 09/04/18 [Rx Confirmed 09/23/18 Last Taken Unknown] tramadol 50 mg tablet 50 mg PO Q8H PRN #60 tab 09/17/18 [Rx Confirmed 09/24/18 Last Taken Unknown] Aspirin 81 mg PO DAILY #30 tab.chew 09/25/18 [Rx Last Taken Unknown] Atorvastatin [Lipitor] 20 mg PO HS #30 tab 09/25/18 [Rx Last Taken Unknown] amLODIPine [Norvasc] 5 mg PO DAILY 09/25/18 [History Confirmed 09/25/18 Last Taken 09/23/18 09:00] Medical - DS: Hosp Hospital course: Ms. Wolf is a 72 year old F Presents the ED for altered mental status. History is obtained from chart and daughters. The patient lives with her daughter. Per the daughter patient was normal this morning talkative and the daughter was going through morning routine with the patient patient was sitting in a chair daughter stepped out and came back and roughly about a 45 the patient appeared to be unresponsive. Patient still sitting in her chair with her head slightly side bent and the patient had a glazed look in her eye, and was clammy per the daughter. EMS arrived who had seen her in the past and noted that she was altered compared to usual. She is brought in the ED where after some time she started to become more responsive. At a time of my exam she was able to talk to me and answer questions although could only give me a poor review of systems. She denies any chest or abdominal pain headache fever chills. Her daughter is noted diarrhea this morning which she did not have yesterday and is unusual for her. cough per daughters She was seen in either ED about a week ago with a little bit of altered numbness and weakness found to have acute kidney injury given IV fluids. In the ER she had a chest x-ray which is unremarkable CT brain which showed multiple old infarcts and atrophy but nothing new. Lactate and ESR were okay. She is afebrile no leukocytosis. Renal function was similar to function on Friday in the ED. The daughters are unable to care for the patient patient is home alone while her daughter is at work. Patient has poor oral intake and sits in a chair all day long. Family has been trying to get her to a long term facility and they are currently in the process. 09/25 Feeling well slept well. No overnight events. Patient alert and awake cooperative answering questions appropriately. Denies any abdominal pain over the cyst area. 09/26 No events overnight, slept okay. Patient currently working physical therapy. No new pains or complaints. 09/27 Slept well and continues to feel improved. Was able to get up with physical therapy. No overnight events. 09/28 Doing well and stable for discharge. Discharge diagnosis: Altered mental state superimposed on underlying dementia renal failure Secondary discharge diagnosis: Acute kidney injury on chronic kidney disease, volume depletion, suspected UTI, diarrhea, deconditioning debility, history of strokes, hypertension - Time Spent with Patient Total time spent providing and/or coordinating discharge services: Greater than 30 minutes Medical - DS: Exam - Constitutional Vitals: Vital Signs Temp Pulse Pulse Resp BP BP BP 09/25/18 07:00 97.8 F 16 129/62 09/25/18 04:00 72 18 138/68 09/25/18 00:00 63 18 126/55 09/24/18 20:00 97.7 F 18 144/56 09/24/18 15:30 98.0 F 18 148/71 09/24/18 13:56 78 12 144/74 09/24/18 13:48 60 18 144/74 09/24/18 13:05 61 15 09/24/18 11:44 29 H 100/47 Pulse Ox 09/25/18 07:00 99 09/25/18 04:00 95 09/25/18 00:00 94 09/24/18 20:00 94 03/14/19 15:30 98 09/24/18 13:56 97 09/24/18 13:48 99 09/24/18 13:05 99 09/24/18 11:44 Intake and Output 09/24/18 09/25/18 09/25/18 21:59 05:59 13:59 Intake Total 1960 1000 1300 Output Total 150 950 Balance 1810 50 1300 Intake: IV 1000 1000 1000 Sodium Chloride 0.9% 1,000 ml @ 1000 1000 125 mls/hr IV .Q8H [facility] Rx#: [id number] Oral 960 300 Output: Urine Catheter Amount 150 950 Other: Meal Dinner Breakfast Percent of Meal Consumed 10% 100% Feeding Ability Total Assistance Assist with Tray Set Up Urine Appearance Clear Clear Uretheral (Kraft) Clear Urine Color Bright Yellow Uretheral (Kraft) Bright Yellow Urine Odor Normal Stool Size Moderate Stool Color Brown Stool Consistency Liquid Loose # of times incontinent of 1 Bowels Weight 109.769 kg Medical - DS: Data Labs on day of discharge: Labs from last 24 hours 09/25/18 09/25/18 09/25/18 07:25 03:15 03:15 WBC 9.3 RBC 3.47 L Hgb 10.3 L Hct 31.8 L MCV 91.8 MCH 29.7 MCHC 32.4 RDW 13.2 Plt Count 253 MPV 7.8 Gran % 69.4 Lymph % (Auto) 20.8 [place] % (Auto) 7.5 Eos % (Auto) 1.8 Baso % (Auto) 0.5 Gran # 6.5 Lymph # (Auto) 1.9 [place] # (Auto) 0.7 Eos # (Auto) 0.2 Baso # (Auto) 0.1 Total Counted Seg Neutrophils % Band Neutrophils % Lymphocytes % Monocytes % (Manual) Eosinophils % (Manual) Basophils % (Manual) Platelet Estimate RBC Morphology ESR PT 14.3 INR 1.1 ABG Methemoglobin VBG pH VBG pCO2 VBG pO2 VBG HCO3 VBG Total CO2 VBG O2 Saturation VBG Base Excess VBG Lactic Acid Carboxyhemoglobin Total Hemoglobin O2 Delivery Level Sodium 139 Potassium 4.2 Chloride 106 Carbon Dioxide 25 Anion Gap 8.0 BUN 32 H Creatinine 1.2 H GFR Calculation 44 Glucose 87 Uric Acid 7.6 Calcium 8.2 L Phosphorus 3.1 Magnesium 2.0 Total Bilirubin 0.4 Direct Bilirubin < 0.2 GGT 12 AST 19 ALT 9 Alkaline Phosphatase 37 L Lactate Dehydrogenase 192 Total Protein 6.1 Albumin 3.1 L Globulin 3.0 Albumin/Globulin Ratio 1.0 Triglycerides 40 Cholesterol LDL Cholesterol, Calc Non-HDL Cholesterol HDL Cholesterol Urine Color Urine Appearance Urine pH Ur Specific [place] Urine Protein Urine Glucose (UA) Urine Ketones Urine Occult Blood Urine Nitrate Urine Bilirubin Urine Urobilinogen Ur Leukocyte Esterase Urine RBC Urine WBC Ur Squamous Epith Cells Urine Bacteria Hyaline Casts Urine Mucus Ur Culture Indicated? 09/24/18 09/24/18 09/24/18 19:54 17:55 17:55 WBC RBC Hgb Hct MCV MCH MCHC RDW Plt Count MPV Gran % Lymph % (Auto) [place] % (Auto) Eos % (Auto) Baso % (Auto) Gran # Lymph # (Auto) [place] # (Auto) Eos # (Auto) Baso # (Auto) Total Counted Seg Neutrophils % Band Neutrophils % Lymphocytes % Monocytes % (Manual) Eosinophils % (Manual) Basophils % (Manual) Platelet Estimate RBC Morphology ESR PT INR ABG Methemoglobin 0.3 L VBG pH 7.35 VBG pCO2 46.3 VBG pO2 58 H VBG HCO3 25.2 VBG Total CO2 26.6 VBG O2 Saturation 82.4 H VBG Base Excess -0.5 VBG Lactic Acid Carboxyhemoglobin 4.1 H Total Hemoglobin 10.8 L O2 Delivery Level Not Reportable Sodium TNP Potassium TNP Chloride TNP Carbon Dioxide TNP Anion Gap TNP BUN TNP Creatinine TNP GFR Calculation TNP Glucose TNP Uric Acid TNP Calcium TNP Phosphorus TNP Magnesium TNP Total Bilirubin TNP Direct Bilirubin TNP GGT TNP AST TNP ALT TNP Alkaline Phosphatase TNP Lactate Dehydrogenase TNP Total Protein TNP Albumin TNP Globulin TNP Albumin/Globulin Ratio TNP Triglycerides 56 TNP Cholesterol 179 LDL Cholesterol, Calc 115 H Non-HDL Cholesterol 126 HDL Cholesterol 53 Urine Color Urine Appearance Urine pH Ur Specific [place] Urine Protein Urine Glucose (UA) Urine Ketones Urine Occult Blood Urine Nitrate Urine Bilirubin Urine Urobilinogen Ur Leukocyte Esterase Urine RBC Urine WBC Ur Squamous Epith Cells Urine Bacteria Hyaline Casts Urine Mucus Ur Culture Indicated? 09/24/18 09/24/18 09/24/18 16:00 12:01 11:03 WBC RBC Hgb Hct MCV MCH MCHC RDW Plt Count MPV Gran % Lymph % (Auto) [place] % (Auto) Eos % (Auto) Baso % (Auto) Gran # Lymph # (Auto) [place] # (Auto) Eos # (Auto) Baso # (Auto) Total Counted 100 Seg Neutrophils % 67 Band Neutrophils % Not Reportable Lymphocytes % 23 Monocytes % (Manual) 6 Eosinophils % (Manual) 3 Basophils % (Manual) 1 Platelet Estimate Normal RBC Morphology Normal ESR PT INR ABG Methemoglobin VBG pH VBG pCO2 VBG pO2 VBG HCO3 VBG Total CO2 VBG O2 Saturation VBG Base Excess VBG Lactic Acid Carboxyhemoglobin Total Hemoglobin O2 Delivery Level Sodium Potassium Chloride Carbon Dioxide Anion Gap BUN Creatinine GFR Calculation Glucose Uric Acid Calcium Phosphorus Magnesium Total Bilirubin Direct Bilirubin GGT AST ALT Alkaline Phosphatase Lactate Dehydrogenase Total Protein Albumin Globulin Albumin/Globulin Ratio Triglycerides Cholesterol LDL Cholesterol, Calc Non-HDL Cholesterol HDL Cholesterol Urine Color Yellow Yellow Urine Appearance Clear Hazy Urine pH 5.0 5.0 Ur Specific [place] 1.011 1.014 Urine Protein Neg Neg Urine Glucose (UA) Negative Negative Urine Ketones 5/tr A Neg Urine Occult Blood Neg Neg Urine Nitrate Neg Neg Urine Bilirubin Neg Neg Urine Urobilinogen Neg 2.0 A Ur Leukocyte Esterase 25 A 25 A Urine RBC 9 H < 1 Urine WBC 5 H 6 H Ur Squamous Epith Cells 1 5 H Urine Bacteria 0 Few A Hyaline Casts 13 H 41 H Urine Mucus Few Few Ur Culture Indicated? No No 09/24/18 09/24/18 09/24/18 11:03 11:03 11:03 WBC 7.0 RBC 3.62 L Hgb 10.7 L Hct 33.3 L MCV 92.0 MCH 29.6 MCHC 32.2 RDW 13.3 Plt Count 269 MPV 7.7 Gran % 70.7 Lymph % (Auto) 20.0 [place] % (Auto) 6.4 Eos % (Auto) 2.1 Baso % (Auto) 0.8 Gran # 5.0 Lymph # (Auto) 1.4 L [place] # (Auto) 0.5 Eos # (Auto) 0.1 Baso # (Auto) 0.1 Total Counted Seg Neutrophils % Band Neutrophils % Lymphocytes % Monocytes % (Manual) Eosinophils % (Manual) Basophils % (Manual) Platelet Estimate RBC Morphology ESR 12 PT INR ABG Methemoglobin VBG pH VBG pCO2 VBG pO2 VBG HCO3 VBG Total CO2 VBG O2 Saturation VBG Base Excess VBG Lactic Acid 1.0 Carboxyhemoglobin Total Hemoglobin O2 Delivery Level Sodium 141 Potassium 4.5 Chloride 103 Carbon Dioxide 25 Anion Gap 13.0 BUN 37 H Creatinine 1.4 H GFR Calculation 37 Glucose 134 H Uric Acid Calcium 8.9 Phosphorus Magnesium Total Bilirubin 0.5 Direct Bilirubin GGT AST 15 ALT 7 Alkaline Phosphatase 37 L Lactate Dehydrogenase Total Protein 6.4 Albumin 3.4 Globulin 3.0 Albumin/Globulin Ratio 1.1 Triglycerides Cholesterol LDL Cholesterol, Calc Non-HDL Cholesterol HDL Cholesterol Urine Color Urine Appearance Urine pH Ur Specific [place] Urine Protein Urine Glucose (UA) Urine Ketones Urine Occult Blood Urine Nitrate Urine Bilirubin Urine Urobilinogen Ur Leukocyte Esterase Urine RBC Urine WBC Ur Squamous Epith Cells Urine Bacteria Hyaline Casts Urine Mucus Ur Culture Indicated? Preliminary micro results at discharge 09/24/18 16:00 Stool Culture - Preliminary Stool Medical - DS: A/P - Patient/Caregiver Discharge Instructions Activity: as per physical therapy Diet: Cardiac Additional Instructions: -f/u outpt with PCP regarding known adnexa cyst for potential drainage if become symptomatic Prescriptions: Aspirin 81 mg PO DAILY #30 tab.chew Atorvastatin [Lipitor] 20 mg PO HS #30 tab - Follow up Plan Follow up with: Higinio Mays MD [Primary Care Provider] - Disposition: Xfer SNF Prognosis: Fair Rehab Potential: Fair I certify that the patient requires SNF services: Yes Overall status at discharge: patient is back to baseline Medical - DS: Qual - VTE Deep Vein Thrombosis/Pulmonary Embolism Present on Admission: No
[2018-09-25] MEDS: ATORVASTATIN 20 MG TABLET PO SCH ×2 (20:29→20:49)
[2018-09-25] MEDS ORDERED: DEXTROSE 31 GM ORAL.SUSP PO PRN (20:43)
[2018-09-25] MEDS ORDERED: ACETAMINOPHEN 325 MG TABLET PO PRN (20:43)
[2018-09-25] MEDS ORDERED: ONDANSETRON 4 MG/2 ML VIAL IV PRN (20:43)
[2018-09-25] MEDS ORDERED: PROMETHAZINE 25 MG TABLET PO PRN (20:43)
[2018-09-25] MEDS ORDERED: MAGNESIUM SULFATE 2 GM/50 ML BAG IV PRN (20:43)
[2018-09-25] MEDS ORDERED: POTASSIUM CHLORIDE 40 MEQ in DEXTROSE 5% IN WATER 500 ML IV PRN (20:43)
[2018-09-25] MEDS ORDERED: hydrALAZINE 20 MG/ML VIAL IV PRN (20:43)
[2018-09-25] MEDS ORDERED: DEXTROSE 50% 50 ML VIAL IV PRN (20:43)
[2018-09-25] MEDS ORDERED: IPRATROPIUM/ALBUTEROL 3 ML AMPUL.NEB NEB PRN (20:43)
[2018-09-25] MEDS ORDERED: PROCHLORPERAZINE 10 MG/2 ML VIAL IV PRN (20:43)
[2018-09-25] MEDS ORDERED: POLYETHYLENE GLYCOL 3350 17 GM PACKET PO PRN (20:43)
[2018-09-25] MEDS ORDERED: POTASSIUM CHLORIDE 20 MEQ TABLET PO PRN ×2 (20:43)
[2018-09-26] MEDS: 0.9 % SODIUM CHLORIDE 10 ML SYRINGE IV SCH ×3 (05:39→21:23)
[2018-09-26] MEDS: INSULIN LISPRO 1 UNIT/0.01 ML UNIT SQ SCH ×4 (07:18→21:22)
[2018-09-26] MEDS: PANTOPRAZOLE 40 MG TABLET PO SCH (07:20)
--- NOTE | 2018-09-26 07:35 | Internal Med Progress Note ---
Medical - PN: Subj Patient information: Note initiated : 09/26/18 at 7:31 am Service Date, if different from initiated Date: [] Patient: Nicole Wolf a 72 y/o F admitted on 09/24/18 for Decreased loc. Chief Complaint: [] Interval history: Ms. Wolf is a 72 year old F Presents the ED for altered mental status. History is obtained from chart and daughters. The patient lives with her daughter. Per the daughter patient was normal this morning talkative and the daughter was going through morning routine with the patient patient was sitting in a chair daughter stepped out and came back and roughly about a 45 the patient appeared to be unresponsive. Patient still sitting in her chair with her head slightly side bent and the patient had a glazed look in her eye, and was clammy per the daughter. EMS arrived who had seen her in the past and noted that she was altered compared to usual. She is brought in the ED where after some time she started to become more responsive. At a time of my exam she was able to talk to me and answer questions although could only give me a poor review of systems. She denies any chest or abdominal pain headache fever chills. Her daughter is noted diarrhea this morning which she did not have yesterday and is unusual for her. cough per daughters She was seen in either ED about a week ago with a little bit of altered numbness and weakness found to have acute kidney injury given IV fluids. In the ER she had a chest x-ray which is unremarkable CT brain which showed mult iple old infarcts and atrophy but nothing new. Lactate and ESR were okay. She is afebrile no leukocytosis. Renal function was similar to function on Friday in the ED. The daughters are unable to care for the patient patient is home alone while her daughter is at work. Patient has poor oral intake and sits in a chair all day long. Family has been trying to get her to a snf facility and they are currently in the process. 09/25 Feeling well slept well. No overnight events. Patient alert and awake cooperative answering questions appropriately. Denies any abdominal pain over the cyst area. 09/26 No events overnight, slept okay. Patient currently working physical therapy. No new pains or complaints. Review of Systems: denies headache/fever/chills/nausea/vomiting/chest or abdominal pain/cough/dyspnea/diarrhea. Otherwise see above. - Constitutional Vitals: Vital Signs Temp Pulse Resp BP Pulse Ox 97.8 F 62 16 123/66 98 09/26/18 03:30 09/26/18 03:30 09/26/18 03:30 09/26/18 03:30 09/26/18 03:30 Period Temp Pulse Resp BP Sys/Daniels Pulse Ox Last 24 Hr 97.8 F-98.4 F 62-76 16-18 123-148/66-74 94-100 Intake and Output 09/25/18 09/26/18 09/26/18 21:59 05:59 13:59 Intake Total 480 Output Total 500 450 Balance -20 -450 Weight 111.584 kg Intake & Output: Intake & Output 09/25/18 09/26/18 09/26/18 21:59 05:59 13:59 Intake Total 480 Output Total 500 450 Balance -20 -450 Weight 111.584 kg Intake: Oral 480 Output: Urine Catheter Amount 500 450 Other: Meal Dinner Percent of Meal Consumed 100% Feeding Ability Assist with Tray Set Up Urine Appearance Clear Uretheral (Kraft) Clear Urine Color Dark Yellow Uretheral (Kraft) Bright Yellow Urine Odor Normal Exam: General: Awake, No acute Distress Eyes/N/T: Legally blind, Head/Neck: neck supple, CV: RRR, No murmurs, Pulm: Clear b/l, no wheezing/rhonchi/rales Abd: soft, nontender, distended over cyst side, +BS x4 Ext: no clubbing/cyanosis, 1+ b/l LE chronic Neuro: A&Ox4, follows all commands, moves all extremities Skin: warm/dry Medical - PN: Obj Da - Labs CBC & Chem 7: 09/25/18 03:15 09/25/18 03:15 Labs: Abnormal Lab Results 09/25/18 09/25/18 09/24/18 03:15 03:15 19:54 RBC 3.47 L Hgb 10.3 L Hct 31.8 L Lymph # (Auto) ABG Methemoglobin VBG pO2 VBG O2 Saturation Carboxyhemoglobin Total Hemoglobin BUN 32 H Creatinine 1.2 H Glucose Calcium 8.2 L Alkaline Phosphatase 37 L Albumin 3.1 L LDL Cholesterol, Calc 115 H Urine Ketones Urine Urobilinogen Ur Leukocyte Esterase Urine RBC Urine WBC Ur Squamous Epith Cells Urine Bacteria Hyaline Casts 09/24/18 09/24/18 09/24/18 17:55 16:00 12:01 RBC Hgb Hct Lymph # (Auto) ABG Methemoglobin 0.3 L VBG pO2 58 H VBG O2 Saturation 82.4 H Carboxyhemoglobin 4.1 H Total Hemoglobin 10.8 L BUN Creatinine Glucose Calcium Alkaline Phosphatase Albumin LDL Cholesterol, Calc Urine Ketones 5/tr A Urine Urobilinogen 2.0 A Ur Leukocyte Esterase 25 A 25 A Urine RBC 9 H Urine WBC 5 H 6 H Ur Squamous Epith Cells 5 H Urine Bacteria Few A Hyaline Casts 13 H 41 H 09/24/18 09/24/18 11:03 11:03 RBC 3.62 L Hgb 10.7 L Hct 33.3 L Lymph # (Auto) 1.4 L ABG Methemoglobin VBG pO2 VBG O2 Saturation Carboxyhemoglobin Total Hemoglobin BUN 37 H Creatinine 1.4 H Glucose 134 H Calcium Alkaline Phosphatase 37 L Albumin LDL Cholesterol, Calc Urine Ketones Urine Urobilinogen Ur Leukocyte Esterase Urine RBC Urine WBC Ur Squamous Epith Cells Urine Bacteria Hyaline Casts Meds: Medications Acetaminophen (Tylenol) 650 mg PO Q6HP PRN PRN Reason: PAIN/FEVER > 101 Albuterol/Ipratropium (Duoneb) 3 ml NEB Q4HP PRN PRN Reason: Shortness Of Breath Amlodipine Besylate (Norvasc) 5 mg PO DAILY [facility] Aspirin (Aspirin) 81 mg PO DAILY [facility] Atorvastatin Calcium (Lipitor) 20 mg PO HS [facility] Last Admin: 09/25/18 20:49 Dose: Not Given Documented by: Ceftriaxone Sodium (Rocephin) 1 gm IV DAILY [facility]; Protocol Dextrose (Dextrose 50%) 0 ml IV UD PRN PRN Reason: Hypoglycemia Diagnostic Test (Pha) (Accu-Chek) 1 each FS [facility] Last Admin: 09/26/18 07:17 Dose: 1 each Documented by: Enoxaparin Sodium (Lovenox) 40 mg SQ DAILY [facility] Glucose (Insta-Glucose) 15 gm PO PRN PRN PRN Reason: Hypoglycemia Hydralazine HCl (Apresoline) 0 mg IV Q2HP PRN PRN Reason: Hypertension Potassium Chloride 40 meq/ (Dextrose) 520 mls @ 130 mls/hr IV ONCE PRN PRN Reason: Potassium < 3 Magnesium Sulfate (Magnesium Sulfate) 2 gm in 50 mls @ 50 mls/hr IV ONCE PRN PRN Reason: Magnesium </= 1.6 Insulin Glargine (Lantus) 30 unit SQ DAILY [facility] Insulin Human Lispro (Humalog) 0 unit SQ ACHS [facility]; Protocol Last Admin: 09/26/18 07:18 Dose: Not Given Documented by: Ondansetron HCl (Zofran) 4 mg IV Q4HP PRN PRN Reason: Nausea And Vomiting Pantoprazole Sodium (Protonix) 40 mg PO QAMAC [facility] Last Admin: 09/26/18 07:20 Dose: 40 mg Documented by: Polyethylene Glycol (Miralax) 17 gm PO DAILYP PRN PRN Reason: Constipation Potassium Chloride (Kdur) 40 meq PO ONCE PRN PRN Reason: Potssium is 3-3.5 Potassium Chloride (Kdur) 40 meq PO ONCE PRN PRN Reason: Potassium < 3 Prochlorperazine (Compazine) 10 mg IV Q6HP PRN PRN Reason: Nausea And Vomiting Promethazine HCl (Phenergan) 0 mg PO Q6HP PRN PRN Reason: Nausea And Vomiting Sodium Chloride (Saline Flush) 10 ml IV Q8 [facility] Last Admin: 09/26/18 05:39 Dose: 10 ml Documented by: Tramadol HCl (Ultram) 50 mg PO Q8HP PRN PRN Reason: Pain - ABG Interpretation ABG results: 09/24/18 17:55 ABG Methemoglobin 0.3 L VBG pH 7.35 VBG pCO2 46.3 VBG pO2 58 H VBG HCO3 25.2 VBG Total CO2 26.6 VBG O2 Saturation 82.4 H VBG Base Excess -0.5 Medical - PN: A/P - Time Spent With Patient Total time spent is greater than 50% in coordination of care (as documented) at patient's floor/unit and/or counseling patient: - Narrative A/P Narrative: A: *AMS (decreased LOC): 2/2 dehydration/EDUIN/?UTI superimposed on underlying Dementia and -CT brain negative -RESolved *EDUIN on CKD III: poor oral intake -improved with IVF *Volume depletion: resolved *?UTI: no growth *Diarrhea: c. diff neg *Advanced Dementia: *Deconditioning/Debility/Inability to care for self: *h/o CVA's x9: takes ASA at home, don't see statin *HTN: on norvasc/lisinopril *h/o Urinary incontinence: wears Depend's at home *Adnexa Pelvic Cyst, large: previously known/biopsied and drained in past -no abdominal pain P: -ACEI held inititially for EDUIN, restart norvasc -ASA/statin -SSI and basal -pt/ot -CM for SNF placement -f/u outpt regarding known adnexa cyst for potential drainage -ppx: lovenox Awaiting Placement Medical - PN: Qual - Stroke Symptom Onset Unknown: No - VTE Deep Vein Thrombosis/Pulmonary Embolism Present on Admission: No
[2018-09-26 09:36] LABS: Blood Urea Nitrogen 22 mg/dl (8-23)
[2018-09-26] MEDS: amLODIPine 5 MG TABLET PO SCH (09:40)
[2018-09-26] MEDS: INSULIN GLARGINE, HUMAN 1 UNIT/0.01 ML SQ SCH (09:40)
[2018-09-26] MEDS: cefTRIAXone 1 GM VIAL IV SCH (09:41)
[2018-09-26] MEDS: ENOXAPARIN 40 MG/0.4 ML SYRINGE SQ SCH (09:41)
[2018-09-26] MEDS: ASPIRIN 81 MG TAB.CHEW PO SCH (09:41)
[2018-09-26] MEDS ORDERED: PNEUMOCOCCAL 23-VAL P-SAC VAC 0.5 ML SYRINGE IM ONE (10:00)
[2018-09-26] MEDS: ATORVASTATIN 20 MG TABLET PO SCH (21:23)
[2018-09-26] MEDS: traMADol 50 MG TABLET PO PRN (22:18)
[2018-09-27] MEDS: traMADol 50 MG TABLET PO PRN ×2 (05:45→20:20)
[2018-09-27] MEDS: 0.9 % SODIUM CHLORIDE 10 ML SYRINGE IV SCH ×3 (05:47→20:23)
[2018-09-27] MEDS: INSULIN LISPRO 1 UNIT/0.01 ML UNIT SQ SCH ×4 (06:52→20:20)
[2018-09-27] MEDS: PANTOPRAZOLE 40 MG TABLET PO SCH (07:17)
--- NOTE | 2018-09-27 07:41 | Internal Med Progress Note ---
Medical - PN: Subj Patient information: Note initiated : 09/27/18 at 7:38 am Service Date, if different from initiated Date: [] Patient: Nicole Wolf a 72 y/o F admitted on 09/24/18 for Decreased loc. Chief Complaint: [] Interval history: Ms. Wolf is a 72 year old F Presents the ED for altered mental status. History is obtained from chart and daughters. The patient lives with her daughter. Per the daughter patient was normal this morning talkative and the daughter was going through morning routine with the patient patient was sitting in a chair daughter stepped out and came back and roughly about a 45 the patient appeared to be unresponsive. Patient still sitting in her chair with her head slightly side bent and the patient had a glazed look in her eye, and was clammy per the daughter. EMS arrived who had seen her in the past and noted that she was altered compared to usual. She is brought in the ED where after some time she started to become more responsive. At a time of my exam she was able to talk to me and answer questions although could only give me a poor review of systems. She denies any chest or abdominal pain headache fever chills. Her daughter is noted diarrhea this morning which she did not have yesterday and is unusual for her. cough per daughters She was seen in either ED about a week ago with a little bit of altered numbness and weakness found to have acute kidney injury given IV fluids. In the ER she had a chest x-ray which is unremarkable CT brain which showed mult iple old infarcts and atrophy but nothing new. Lactate and ESR were okay. She is afebrile no leukocytosis. Renal function was similar to function on Friday in the ED. The daughters are unable to care for the patient patient is home alone while her daughter is at work. Patient has poor oral intake and sits in a chair all day long. Family has been trying to get her to a long term facility and they are currently in the process. 09/25 Feeling well slept well. No overnight events. Patient alert and awake cooperative answering questions appropriately. Denies any abdominal pain over the cyst area. 09/26 No events overnight, slept okay. Patient currently working physical therapy. No new pains or complaints. 09/27 Slept well and continues to feel improved. Was able to get up with physical therapy. No overnight events. Review of Systems: denies headache/fever/chills/nausea/vomiting/chest or abdominal pain/cough/dyspnea/diarrhea. Otherwise see above. - Constitutional Vitals: Vital Signs Temp Pulse Resp BP Pulse Ox 97.3 F 64 16 139/72 98 09/27/18 06:22 09/27/18 03:16 09/27/18 06:22 09/27/18 06:22 09/27/18 06:22 Period Temp Pulse Resp BP Sys/Daniels Pulse Ox Last 24 Hr 97.1 F-98.7 F 62-79 12-20 109-146/55-78 96-100 Intake and Output 09/26/18 09/27/18 09/27/18 21:59 05:59 13:59 Intake Total 700 250 Output Total 1225 500 Balance -525 -250 Weight 113.852 kg Intake & Output: Intake & Output 09/26/18 09/27/18 09/27/18 21:59 05:59 13:59 Intake Total 700 250 Output Total 1225 500 Balance -525 -250 Weight 113.852 kg Intake: Oral 700 250 Output: Urine Catheter Amount 1225 500 Other: Meal Dinner Percent of Meal Consumed 100% Feeding Ability Independent Urine Appearance Clear Clear Uretheral (Kraft) Clear Urine Color Bright Yellow Bright Yellow Uretheral (Kraft) Bright Yellow Exam: General: Awake, No acute Distress Eyes/N/T: Legally blind, Head/Neck: neck supple, CV: RRR, No murmurs, Pulm: Clear b/l, no wheezing/rhonchi/rales Abd: soft, nontender, distended over cyst side, +BS x4 Ext: no clubbing/cyanosis, 1+ b/l LE chronic Neuro: Alert, follows all commands, moves all extremities Skin: warm/dry Medical - PN: Obj Da - Labs CBC & Chem 7: 09/25/18 03:15 09/26/18 08:08 Labs: Abnormal Lab Results 09/26/18 09/25/18 09/25/18 08:08 03:15 03:15 RBC 3.47 L Hgb 10.3 L Hct 31.8 L Lymph # (Auto) ABG Methemoglobin VBG pO2 VBG O2 Saturation Carboxyhemoglobin Total Hemoglobin Carbon Dioxide 21 L BUN 32 H Creatinine 1.2 H Glucose 114 H Calcium 8.3 L 8.2 L Alkaline Phosphatase 37 L Albumin 3.1 L LDL Cholesterol, Calc Urine Ketones Urine Urobilinogen Ur Leukocyte Esterase Urine RBC Urine WBC Ur Squamous Epith Cells Urine Bacteria Hyaline Casts 09/24/18 09/24/18 09/24/18 19:54 17:55 16:00 RBC Hgb Hct Lymph # (Auto) ABG Methemoglobin 0.3 L VBG pO2 58 H VBG O2 Saturation 82.4 H Carboxyhemoglobin 4.1 H Total Hemoglobin 10.8 L Carbon Dioxide BUN Creatinine Glucose Calcium Alkaline Phosphatase Albumin LDL Cholesterol, Calc 115 H Urine Ketones 5/tr A Urine Urobilinogen Ur Leukocyte Esterase 25 A Urine RBC 9 H Urine WBC 5 H Ur Squamous Epith Cells Urine Bacteria Hyaline Casts 13 H 09/24/18 09/24/18 09/24/18 12:01 11:03 11:03 RBC 3.62 L Hgb 10.7 L Hct 33.3 L Lymph # (Auto) 1.4 L ABG Methemoglobin VBG pO2 VBG O2 Saturation Carboxyhemoglobin Total Hemoglobin Carbon Dioxide BUN 37 H Creatinine 1.4 H Glucose 134 H Calcium Alkaline Phosphatase 37 L Albumin LDL Cholesterol, Calc Urine Ketones Urine Urobilinogen 2.0 A Ur Leukocyte Esterase 25 A Urine RBC Urine WBC 6 H Ur Squamous Epith Cells 5 H Urine Bacteria Few A Hyaline Casts 41 H Meds: Medications Acetaminophen (Tylenol) 650 mg PO Q6HP PRN PRN Reason: PAIN/FEVER > 101 Last Admin: 09/27/18 03:10 Dose: 650 mg Documented by: Albuterol/Ipratropium (Duoneb) 3 ml NEB Q4HP PRN PRN Reason: Shortness Of Breath Amlodipine Besylate (Norvasc) 5 mg PO DAILY [facility] Last Admin: 09/26/18 09:40 Dose: 5 mg Documented by: Aspirin (Aspirin) 81 mg PO DAILY [facility] Last Admin: 09/26/18 09:41 Dose: 81 mg Documented by: Atorvastatin Calcium (Lipitor) 20 mg PO HS [facility] Last Admin: 09/26/18 21:23 Dose: 20 mg Documented by: Ceftriaxone Sodium (Rocephin) 1 gm IV DAILY [facility]; Protocol Last Admin: 09/26/18 09:41 Dose: 1 gm Documented by: Dextrose (Dextrose 50%) 0 ml IV UD PRN PRN Reason: Hypoglycemia Diagnostic Test (Pha) (Accu-Chek) 1 each FS ACHS [facility] Last Admin: 09/27/18 06:45 Dose: 1 each Documented by: Enoxaparin Sodium (Lovenox) 40 mg SQ DAILY [facility] Last Admin: 09/26/18 09:41 Dose: 40 mg Documented by: Glucose (Insta-Glucose) 15 gm PO PRN PRN PRN Reason: Hypoglycemia Hydralazine HCl (Apresoline) 0 mg IV Q2HP PRN PRN Reason: Hypertension Potassium Chloride 40 meq/ (Dextrose) 520 mls @ 130 mls/hr IV ONCE PRN PRN Reason: Potassium < 3 Magnesium Sulfate (Magnesium Sulfate) 2 gm in 50 mls @ 50 mls/hr IV ONCE PRN PRN Reason: Magnesium </= 1.6 Insulin Glargine (Lantus) 30 unit SQ DAILY [facility] Last Admin: 09/26/18 09:40 Dose: 30 units Documented by: Insulin Human Lispro (Humalog) 0 unit SQ [facility]; Protocol Last Admin: 09/27/18 06:52 Dose: Not Given Documented by: Ondansetron HCl (Zofran) 4 mg IV Q4HP PRN PRN Reason: Nausea And Vomiting Pantoprazole Sodium (Protonix) 40 mg PO QAMAC [facility] Last Admin: 09/27/18 07:17 Dose: 40 mg Documented by: Polyethylene Glycol (Miralax) 17 gm PO DAILYP PRN PRN Reason: Constipation Potassium Chloride (Kdur) 40 meq PO ONCE PRN PRN Reason: Potssium is 3-3.5 Potassium Chloride (Kdur) 40 meq PO ONCE PRN PRN Reason: Potassium < 3 Prochlorperazine (Compazine) 10 mg IV Q6HP PRN PRN Reason: Nausea And Vomiting Promethazine HCl (Phenergan) 0 mg PO Q6HP PRN PRN Reason: Nausea And Vomiting Sodium Chloride (Saline Flush) 10 ml IV Q8 [facility] Last Admin: 09/27/18 05:47 Dose: 10 ml Documented by: Tramadol HCl (Ultram) 50 mg PO Q8HP PRN PRN Reason: Pain Last Admin: 09/27/18 05:45 Dose: 50 mg Documented by: - ABG Interpretation ABG results: 09/24/18 17:55 ABG Methemoglobin 0.3 L VBG pH 7.35 VBG pCO2 46.3 VBG pO2 58 H VBG HCO3 25.2 VBG Total CO2 26.6 VBG O2 Saturation 82.4 H VBG Base Excess -0.5 Medical - PN: A/P - Time Spent With Patient Total time spent is greater than 50% in coordination of care (as documented) at patient's floor/unit and/or counseling patient: - Narrative A/P Narrative: A: *AMS (decreased LOC): 2/2 dehydration/EDUIN/?UTI superimposed on underlying Dementia and -CT brain negative -RESolved *EDUIN on CKD III: poor oral intake -REsolved *Volume depletion: resolved *?UTI: no growth *Diarrhea: c. diff neg *Advanced Dementia: *Deconditioning/Debility/Inability to care for self: *h/o CVA's x9: takes ASA at home, don't see statin *HTN: on norvasc/lisinopril *h/o Urinary incontinence: wears Depend's at home *Adnexa Pelvic Cyst, large: previously known/biopsied and drained in past -no abdominal pain P: -restart ACEI, restarted norvasc -ASA/statin -SSI and basal -pt/ot -CM for SNF placement -f/u outpt regarding known adnexa cyst for potential drainage -ppx: lovenox Awaiting Placement Medical - PN: Qual - Stroke Symptom Onset Unknown: No - VTE Deep Vein Thrombosis/Pulmonary Embolism Present on Admission: No
[2018-09-27] MEDS: ASPIRIN 81 MG TAB.CHEW PO SCH (10:18)
[2018-09-27] MEDS: amLODIPine 5 MG TABLET PO SCH (10:18)
[2018-09-27] MEDS: LISINOPRIL 10 MG TABLET PO SCH (10:18)
[2018-09-27] MEDS: INSULIN GLARGINE, HUMAN 1 UNIT/0.01 ML SQ SCH (10:18)
[2018-09-27] MEDS: ENOXAPARIN 40 MG/0.4 ML SYRINGE SQ SCH (10:18)
[2018-09-27] MEDS: cefTRIAXone 1 GM VIAL IV SCH (10:19)
[2018-09-27] MEDS: ATORVASTATIN 20 MG TABLET PO SCH (20:19)
[2018-09-28] MEDS: 0.9 % SODIUM CHLORIDE 10 ML SYRINGE IV SCH (05:55)
[2018-09-28] MEDS: INSULIN LISPRO 1 UNIT/0.01 ML UNIT SQ SCH ×2 (06:58→11:08)
[2018-09-28] MEDS: PANTOPRAZOLE 40 MG TABLET PO SCH (07:00)
[2018-09-28] MEDS: ASPIRIN 81 MG TAB.CHEW PO SCH (09:37)
[2018-09-28] MEDS: amLODIPine 5 MG TABLET PO SCH (09:38)
[2018-09-28] MEDS: INSULIN GLARGINE, HUMAN 1 UNIT/0.01 ML SQ SCH (09:38)
[2018-09-28] MEDS: ENOXAPARIN 40 MG/0.4 ML SYRINGE SQ SCH (09:38)
[2018-09-28] MEDS: LISINOPRIL 10 MG TABLET PO SCH (09:38)
[2018-09-28] MEDS: cefTRIAXone 1 GM VIAL IV SCH (10:21)
== END 2018-09-28 13:30 | DRG 948 ==
LOC: ED 09:59 → ICU 15:11 → MEDSUR 09-25 22:40
PROVIDERS: ADMIT Internal Medicine; ATTEND Internal Medicine

== ENCOUNTER 2020-06-28 19:28 | Inpatient (IN) ==
--- NOTE | 2020-06-28 19:58 | Emergency Department Note ---
HPI General Chief complaint: Shortness of Breath/Dyspnea Stated complaint: shortness of breath Time Seen by Provider: 06/28/20 19:49 Source: EMS Mode of arrival: EMS Limitations: no limitations History of Present Illness HPI Narrative: Narrative: 74-year old patient presenting with a chief complaint of dysuria/abdominal discomfort. Patient also complaining of fever, nausea and generally not feeling well. Patient is without exacerbating or ameliorating factors for this issue at this time. Time course is over the past couple of days. Patient is without flank pain. Concern also by outpatient EMS and other providers that she is was having hypoxia and respiratory difficulty. Patient without nausea vomiting diarrhea fevers or chills. Patient saturating excellently here in our emergency department on initial vital signs. Patient without tachypnea or other evidence of respiratory distress. Patient denies chest pain or other symptoms. Related Data Home Medications Medication Instructions Recorded Confirmed acetaminophen 325 mg tablet 650 mg PO BID PRN tab 05/20/19 03/02/20 bupropion HCl 150 mg tablet,12 hr 150 mg PO QAM 09/16/19 03/02/20 sustained-release docusate sodium 100 mg capsule 100 mg PO QDAY 09/16/19 03/02/20 furosemide 20 mg tablet 20 mg PO BID tab 09/16/19 03/02/20 glucagon HCl 1 mg/mL solution for 1 mg SUB-Q Q20M PRN 09/16/19 03/02/20 injection levothyroxine 50 mcg capsule 50 mcg PO QDAY 09/16/19 03/02/20 nystatin 100,000 unit/gram topical 1 applic TOPICAL QDAY 09/16/19 03/02/20 powder polyethylene glycol 3350 17 17 g PO QDAY 09/16/19 03/02/20 gram/dose oral powder sennosides 8.6 mg capsule 8.6 mg PO BID PRN 09/16/19 03/02/20 Donut cushion 1 dose .ROUTE .MEDSUPPLY 12/21/19 03/02/20 Kimo cushion 1 dose .ROUTE .MEDSUPPLY 12/21/19 03/02/20 pen needle, diabetic 0 dose .ROUTE .MEDSUPPLY 12/21/19 03/02/20 Previous Rx's Medication Instructions Recorded insulin lispro 100 unit/mL 10 unit SUB-Q QPM #15 ml 07/16/18 subcutaneous pen clotrimazole-betamethasone 1 1 applic TOPICAL BID 14 Days #15 g 11/11/18 %-0.05 % topical cream atorvastatin 20 mg tablet 20 mg PO HS #90 tab 04/28/19 insulin glargine 100 unit/mL (3 25 unit SUB-Q QAM #15 ml 04/28/19 mL) subcutaneous pen ferrous fumarate 325 mg (106 mg 325 mg PO QDAY #90 tab 11/12/19 iron) tablet tramadol 50 mg tablet See Rx Instructions PO .COMPLEX 05/16/20 PRN #60 tab clonidine HCl 0.1 mg tablet 0.1 mg PO Q8H PRN #90 tab 06/01/20 nitrofurantoin macrocrystal 100 mg 100 mg PO BID #10 cap 06/22/20 capsule Allergies Allergy/AdvReac Type Severity Reaction Status Date / Time No Known Drug Allergies Allergy Verified 01/02/20 19:31 Review of Systems ROS ROS Narrative: Narrative: All systems ED: reviewed and negative except as stated. PFS Narrative Patient History Narrative: Narrative: Medical/Surgical/Family History All Active Problems (Updated 06/29/20 @ 00:05 by Robin Huitron MD) Acute UTI (urinary tract infection) (Acute) Pneumonia (Acute) Hyperkalemia, diminished renal excretion (Acute) Essential hypertension (Acute) CKD stage G4/A2, GFR 15-29 and albumin creatinine ratio 30-299 mg/g (Acute) CKD stage 4 due to type 2 diabetes mellitus (Acute) Hyperkalemia (Acute) Intertrigo (Acute) HTN (hypertension) (Acute) Abdominal pain (Acute) Abdominal mass (Acute) Urinary retention (Acute) E. coli UTI (urinary tract infection) (Acute) Chronic kidney disease (CKD) stage G4/A2, severely decreased glomerular filtration rate (GFR) between 15-29 mL/min/1.73 square meter and albuminuria creatinine ratio between 30-299 mg/g (Chronic) Anemia in chronic kidney disease (Chronic) Ovarian cyst, right (Acute) DVT of lower limb, acute (Acute) Chronic renal failure, stage 3 (moderate) (Chronic) DMII (diabetes mellitus, type 2) (Chronic ~2004) Seizures (Chronic) Morbid obesity (Chronic) Hypercholesterolemia (Chronic) Bilateral lower extremity edema (Chronic) Stroke (Chronic) Deep vein thrombosis of lower extremity (Acute) Ovarian cyst (Chronic) Advanced dementia (Chronic) Degenerative joint disease of knee, right (Chronic) Fall (Chronic) Constipation (Chronic) Retinopathy, diabetic, background (Chronic) Peripheral edema (Chronic) Urine frequency (Chronic) Balance disorder (Chronic) Acid reflux (Chronic) Medical History (Updated 06/29/20 @ 00:05 by Robin Huitron MD) Acid reflux (Chronic) Acute kidney injury (Resolved) Advanced dementia (Chronic) Altered mental status (Resolved) Balance disorder (Chronic) 2010 Pt. uses 4-wheel walker Bilateral lower extremity edema (Chronic) Chronic renal failure, stage 3 (moderate) (Chronic) CKD stage 4 due to type 2 diabetes mellitus (Acute) Complicated UTI (urinary tract infection) (Resolved) Constipation (Chronic) Deep vein thrombosis of lower extremity (Acute) Degenerative joint disease of knee, right (Chronic) DMII (diabetes mellitus, type 2) (Chronic ~2004) Fall (Chronic) Recurrent Gallbladder problem (Resolved) Removed in 1974 [place], [place] Generalized pain (Inactive) Heartburn (Inactive) HTN (hypertension) (Acute) Hypercholesterolemia (Chronic) Hyperkalemia (Acute) Indigestion (Inactive) Intertrigo (Acute) Morbid obesity (Chronic) Ovarian cyst (Chronic) Peripheral edema (Chronic) Retinopathy, diabetic, background (Chronic) Right lumbar radiculopathy (Inactive) Seizures (Chronic) [phone] Dr. Chen [place], [place] Stroke (Chronic) [phone] [phone] Urinary tract infection (Resolved) Urine frequency (Chronic) 2010 UTI (urinary tract infection) (Resolved) Surgical History (Updated 06/09/19 @ 09:14 by Js Landry DO) Hx of cholecystectomy (Chronic) Family History (Updated 03/02/15 @ 14:53 by Sanam Tang) Unknown Diabetes mellitus Social History Smoking Status: Never smoker Alcohol Intake Frequency: does not drink Substance Use: does not use Exam Narrative Narrative: General: Alert, interactive, appropriate Head: Atraumatic, normocephalic Eyes: Extraocular movements intact, sclera anicteric, no conjunctival injection Ears: Pinnae normal, no discharge Mouth: Oral mucosa moist, no acute swelling or evidence of infection Nares: No nasal discharge, patent bilaterally Neck: Trachea midline, full range of motion Chest: Symmetrical chest wall rise, breathing normally; nonlabored respirations Cardiovascular: Patient with excellent perfusion to the extremities; without tachycardia/bradycardia Abd: no apparent abdominal distention, no voluntary/involuntary guarding Skin: Patient without area of erythema, patient is without rash, no ascending lymphangitis or lymphadenopathy Extremities: Full range of motion joints, no obvious deformities Neuro: Alert, oriented x3, cranial nerves II through XII grossly intact, patient without lateralizing findings such as weakness, or abnormal reflexes Psychiatric: Normal affect, normal mood General Limitations: no limitations Course Vital Signs Vital signs: Vital Signs Temperature 98.6 F 06/28/20 19:29 Pulse Rate 100 H 06/28/20 19:29 Respiratory Rate 18 06/28/20 19:29 Blood Pressure 143/59 06/28/20 19:29 Pulse Oximetry (%) 97 06/28/20 19:29 Temperature 99.4 F H 06/28/20 20:45 Pulse Rate 101 H 06/28/20 23:31 Respiratory Rate 18 06/28/20 19:29 Blood Pressure 155/70 06/28/20 23:46 Pulse Oximetry (%) 98 06/28/20 23:31 MDM MDM Narrative Medical decision making narrative: Patient presenting with a chief complaint of dysuria/abdominal discomfort. Patient will be treated with antibiotics as an outpatient at this point time. Differential diagnosis considered included GC/chlamydia, trichomoniasis, HSV, urinary tract infection, pyelonephritis, and chemical irritation of the urethra. Concern by outpatient medical system for shortness of breath hypoxia however vital signs were excellent and patient did not seem to have any respiratory distress on arrival however we did perform extensive evaluation for this issue including EKG chest x-ray CBC CMP as well as troponin. During time in the emergency department patient did require 2 L of oxygen by nasal cannula and chest x-ray demonstrating infiltrate along with elevated white blood cell count at 14.1. Patient is Covid negative x2 was an outpatient as well as the rapid test here in the emergency department the longer test is also ordered. Patient given Rocephin, azithromycin, blood cultures, lactate was negative. UA resulted quickly and clearly patient had urinary tract infection, patient given Rocephin for UTI primarily based on the rapid urinalysi s result combined with low abdominal pain. Respiratory findings were noted later in emergency department course. I discussed case with the hospitalist and the consensus medical opinion is to admit the patient for ongoing care. Lab Data Result diagrams: 06/28/20 20:42 06/28/20 21:50 Labs: Lab Results 06/28/20 06/28/20 06/28/20 Range/Units 19:40 20:42 20:42 WBC 14.1 H (4.5-11.0) K/mcL RBC 3.13 L (4.00-5.20) M/mcL Hgb 8.9 L (12.0-15.0) g/dL Hct 28.1 L (36.0-48.0) % MCV 89.8 (80.0-100.0) fL MCH 28.4 (26.0-34.0) pg MCHC 31.7 (31.0-36.0) g/dL RDW 13.4 (11.5-14.5) % Plt Count 484 H (140-440) K/mcL MPV 9.6 (7.4-10.4) fL Neut % (Auto) 76.9 (38.0-78.0) % Lymph % (Auto) 10.2 L (15.0-49.0) % [place] % (Auto) 11.4 (1.0-12.0) % Eos % (Auto) 1.1 (0.0-7.0) % Baso % (Auto) 0.4 (0.0-2.0) % Lymph # (Auto) 1.44 L (1.50-4.80) K/mcL [place] # (Auto) 1.60 H (0.10-0.90) K/mcL Eos # (Auto) 0.15 (0.00-0.70) K/mcL Baso # (Auto) 0.06 (0.00-0.20) K/mcL Absolute Neutrophils 10.83 H (1.80-8.00) K/mcL VBG Lactic Acid (0.5-2.0) mmol/L Sodium TNP Potassium TNP Chloride TNP Carbon Dioxide TNP Anion Gap TNP BUN TNP Creatinine TNP GFR Calculation TNP Glucose TNP Calcium TNP Total Bilirubin TNP AST TNP ALT TNP Alkaline Phosphatase TNP Troponin T Total Protein TNP Albumin TNP Globulin TNP Albumin/Globulin Ratio TNP Urine Color Nan Urine Appearance Cloudy A (Clear) Urine pH 8.0 (5.0-9.0) Ur Specific [place] 1.017 (1.000-1.035) Urine Protein 100 A (Negative) mg/dL Urine Glucose (UA) 50 A (Negative) mg/dL Urine Ketones Negative (Negative) mg/dL Urine Occult Blood Negative (Negative) mg/dL Urine Nitrate Negative (Negative) Urine Bilirubin Negative (Negative) mg/dL Urine Urobilinogen Negative mg/dL Ur Leukocyte Esterase 500 A (Negative) /ug Urine RBC 10 H (0-1) /hpf Urine WBC > 182 H (0-4) /hpf Ur Squamous Epith Cells 1 (0-4) /hpf Ur Transition Epith Cell < 1 (0-2) /hpf Urine Bacteria Mod A (0) /hpf Hyaline Casts 7 H (0-2) /lph Urine Mucus Few A (None) /hpf Ur Culture Indicated? yes 06/28/20 06/28/20 06/28/20 Range/Units 20:42 21:50 22:21 WBC (4.5-11.0) K/mcL RBC (4.00-5.20) M/mcL Hgb (12.0-15.0) g/dL Hct (36.0-48.0) % MCV (80.0-100.0) fL MCH (26.0-34.0) pg MCHC (31.0-36.0) g/dL RDW (11.5-14.5) % Plt Count (140-440) K/mcL MPV (7.4-10.4) fL Neut % (Auto) (38.0-78.0) % Lymph % (Auto) (15.0-49.0) % [place] % (Auto) (1.0-12.0) % Eos % (Auto) (0.0-7.0) % Baso % (Auto) (0.0-2.0) % Lymph # (Auto) (1.50-4.80) K/mcL [place] # (Auto) (0.10-0.90) K/mcL Eos # (Auto) (0.00-0.70) K/mcL Baso # (Auto) (0.00-0.20) K/mcL Absolute Neutrophils (1.80-8.00) K/mcL VBG Lactic Acid 1.4 (0.5-2.0) mmol/L Sodium 135 Potassium 4.5 Chloride 97 Carbon Dioxide 24 Anion Gap 14.0 BUN 28 H Creatinine 1.3 H GFR Calculation 40 Glucose 136 H Calcium 8.4 L Total Bilirubin 0.3 AST 42 H ALT 19 Alkaline Phosphatase 98 Troponin T TNP Total Protein 7.3 Albumin 2.4 L Globulin 4.9 H Albumin/Globulin Ratio 0.5 L Urine Color Urine Appearance (Clear) Urine pH (5.0-9.0) Ur Specific [place] (1.000-1.035) Urine Protein (Negative) mg/dL Urine Glucose (UA) (Negative) mg/dL Urine Ketones (Negative) mg/dL Urine Occult Blood (Negative) mg/dL Urine Nitrate (Negative) Urine Bilirubin (Negative) mg/dL Urine Urobilinogen mg/dL Ur Leukocyte Esterase (Negative) /ug Urine RBC (0-1) /hpf Urine WBC (0-4) /hpf Ur Squamous Epith Cells (0-4) /hpf Ur Transition Epith Cell (0-2) /hpf Urine Bacteria (0) /hpf Hyaline Casts (0-2) /lph Urine Mucus (None) /hpf Ur Culture Indicated? Discharge Plan Patient/Caregiver Discharge Instructions Pt seen by PERSON[employer]EL [employer] TECHNICIAN/PA only: No Clinical Impression: Acute UTI (urinary tract infection) Pneumonia Qualifiers: Pneumonia type: due to unspecified organism Laterality: right Lung location: unspecified part of lung Qualified Code(s): J18.9 - Pneumonia, unspecified organism Patient Disposition: Xfer As Inpt ([facility]) Condition: Serious Follow up with: Higinio Mays MD [Primary Care Provider] - Prescriptions: No Action insulin lispro [Humalog KwikPen Insulin] 100 unit/mL insulin pen 10 unit SUB-Q QPM Qty: 15 RF: 2 clotrimazole-betamethasone 1-0.05 % cream 1 applic TOPICAL BID 14 Days Qty: 15 RF: 0 Lantus Solostar U-100 Insulin 100 unit/mL (3 mL) insulin pen 25 unit SUB-Q QAM Qty: 15 RF: 2 atorvastatin 20 mg tablet 20 mg PO HS Qty: 90 RF: 1 acetaminophen [Tylenol] 325 mg tablet 650 mg PO BID PRN (Reason: Pain) RF: 0 furosemide 20 mg tablet 20 mg PO BID RF: 0 tramadol [Ultram] 50 mg tablet See Rx Instructions PO .COMPLEX PRN (Reason: Pain) Qty: 60 RF: 0 nitrofurantoin macrocrystal 100 mg capsule 100 mg PO BID Qty: 10 RF: 0 nystatin 100,000 unit/gram powder 1 applic TOPICAL QDAY RF: 0 bupropion HCl [Wellbutrin SR] 150 mg tablet sustained-release 12 hr 150 mg PO QAM RF: 0 docusate sodium [Colace] 100 mg capsule 100 mg PO QDAY RF: 0 senna 8.6 mg capsule 8.6 mg PO BID PRN (Reason: Constipation) RF: 0 polyethylene glycol 3350 17 gram/dose powder 17 g PO QDAY RF: 0 levothyroxine 50 mcg capsule 50 mcg PO QDAY RF: 0 glucagon HCl 1 mg/mL recon soln 1 mg SUB-Q Q20M PRN (Reason: Hypoglycemia) RF: 0 ferrous fumarate 325 mg (106 mg iron) tablet 325 mg PO QDAY Qty: 90 RF: 0 clonidine HCl 0.1 mg tablet 0.1 mg PO Q8H PRN (Reason: hypertensive emergency) Qty: 90 RF: 3 pen needle, diabetic 1 EACH needle 0 dose .Route .MEDSUPPLY RF: 0 Donut cushion 1 dose .Route .MEDSUPPLY RF: 0 Roho cushion 1 dose .Route .MEDSUPPLY RF: 0
[2020-06-28 20:27] LABS: Appearance,Urine CLOUDY (Clear); Bacteria,Urine MOD /hpf (0); Bilirubin,Urine Negative (Negative); Color,Urine AMBER; Culture Indicated,Urine yes; Glucose,Urine (UA) 50 mg/dL (Negative); Ketones,Urine Negative (Negative); Leukocyte Esterase,Urine 500 /ug (Negative); Mucus,Urine FEW /hpf; Nitrate,Urine Negative (Negative); Protein,Urine 100 mg/dL (Negative); Specific Gravity,Urine 1.017 (1.000-1.035); Urine Blood Negative (Negative); Urine Hyaline Cast 7 /lph (0-2); Urine RBC 10 /hpf (0-1); Urine Squamous Epithelial Cell 1 /hpf (0-4); Urine Transitional Epi Cells < 1 /hpf (0-2); Urine WBC > 182 /hpf (0-4); Urobilinogen,Urine Negative
[2020-06-28] MEDS ORDERED: cefTRIAXone 1 GM VIAL IV ONE (20:35)
[2020-06-28 21:26] LABS: Basophils # (Auto) 0.06 K/mcL (0.00-0.20); Basophils % (Auto) 0.4 % (0.0-2.0); Eosinophils # (Auto) 0.15 K/mcL (0.00-0.70); Eosinophils % (Auto) 1.1 % (0.0-7.0); Hematocrit 28.1 % (36.0-48.0); Hemoglobin 8.9 g/dL (12.0-15.0); Lymphocytes # (Auto) 1.44 K/mcL (1.50-4.80); Lymphocytes % (Auto) 10.2 % (15.0-49.0); Mean Cell Volume 89.8 fL (80.0-100.0); Mean Corpuscular HGB Conc 31.7 g/dL (31.0-36.0); Mean Platelet Volume 9.6 fL (7.4-10.4); Monocytes % (Auto) 11.4 % (1.0-12.0); Neutrophils % (Auto) 76.9 % (38.0-78.0); Platelet Count 484 K/mcL (140-440); RBC 3.13 M/mcL (4.00-5.20); Red Cell Distribution Width 13.4 % (11.5-14.5); WBC 14.1 K/mcL (4.5-11.0)
[2020-06-28] MEDS ORDERED: 0.9 % SODIUM CHLORIDE 1,000 ML IV ONE (22:04)
[2020-06-28 23:44] LABS: ALT/SGPT 19 U/L (<40); AST/SGOT 42 U/L (<32); Albumin 2.4 gm/dL (3.2-5.2); Albumin/Globulin Ratio 0.5 (1.0-2.3); Alkaline Phosphatase 98 U/L (39-117); Bilirubin,Total 0.3 mg/dL (0.1-1.0); Blood Urea Nitrogen 28 mg/dL (8-23); Calcium 8.4 mg/dL (8.6-10.4); Carbon Dioxide 24 mmol/L (22-30); Chloride 97 mmol/L (96-108); Globulin 4.9 gm/dL (2.2-3.7); Glomerular Filtration Rate 40; Glucose 136 mg/dL (70-105)
[2020-06-28] MEDS ORDERED: cefTRIAXone 1 GM in DEXTROSE 5% IN WATER 50 ML IV SCH (23:45)
[2020-06-28] MEDS ORDERED: AZITHROMYCIN 500 MG in DEXTROSE 5% IN WATER 250 ML IV SCH (23:45)
[2020-06-28] MEDS ORDERED: ONDANSETRON 4 MG/2 ML VIAL IV PRN (23:59)
[2020-06-29] MEDS ORDERED: AZITHROMYCIN 500 MG in DEXTROSE 5% IN WATER 250 ML IV ONE (00:07)
[2020-06-29] MEDS ORDERED: cefTRIAXone 1 GM VIAL ONE (01:53)
--- NOTE | 2020-06-29 02:17 | XRay Report ---
CLINICAL INFORMATION: CP/dyspnea COMPARISON: 09/24/2018 FINDINGS: The heart is moderately enlarged but unchanged. Mediastinum and pulmonary vessels are normal. Large patchy alveolar infiltrates throughout the right lung and more vague patchy infiltrates in the left mid and lower lung have developed. No definite effusion IMPRESSION: Large diffuse right lung and moderate patchy left mid and lower lung infiltrates. Moderate cardiomegaly stable Interpreted and Authenticated by: Ahsan Otoole 06/29/20
[2020-06-29] MEDS ORDERED: DEXAMETHASONE 10 MG/ML VIAL IV ONE (02:56)
[2020-06-29] MEDS: 0.45 % SODIUM CHLORIDE 1,000 ML IV SCH ×2 (04:15→04:17)
[2020-06-29] MEDS ORDERED: 0.9 % SODIUM CHLORIDE 10 ML SYRINGE IV SCH (06:00)
[2020-06-29] MEDS ORDERED: ACETAMINOPHEN (PP) 325MG TABLET (#50) PO PRN (07:49)
[2020-06-29] MEDS ORDERED: DEXTROSE 50% 50 ML VIAL IV PRN ×2 (07:52→08:14)
[2020-06-29] MEDS ORDERED: REMDESIVIR 200 MG in 0.9 % SODIUM CHLORIDE 250 ML IV ONE ×2 (07:52→09:00)
[2020-06-29] MEDS ORDERED: DEXTROSE 31 GM ORAL.SUSP PO PRN ×2 (07:52→08:14)
[2020-06-29] MEDS ORDERED: PIPERACILLIN SODIUM/TAZOBACTAM 3.375 GM in DEXTROSE 5% IN WATER 50 ML IV SCH (08:00)
--- NOTE | 2020-06-29 08:00 | Internal Med History&Physical ---
HPI History of Present Illness Patient information: Note initiated : 06/29/20 at 8:00 am Service Date, if different from initiated Date: [] Patient: Nicole Wolf a 74 y/o F admitted on 06/29/20 for shortness of breath. Chief Complaint: [dysuria] History of present illness: Ms. 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 UA also looked positive for a UTI. COVID PCR was presumpitively positive. Chest xray showed diffuse right lung and moderate patch left mid and lower lung infiltrates. The patient was admitted for treatement of COVID-19 pneumonia. the patient has a new oxygen requirement of 4 l/min. Broad spectrum antibiotics added due to the possible superimposed bacterial pneumonia (the patient lives in a SNF as well) and to cover for UTI (she takes suppressive nitrofurantoin for recurrent UTI). The patient is in moderate respiratory distress, guarded prognosis. The patient's code status is DNR. Review of Systems All systems: reviewed and no additional remarkable complaints except as stated Respiratory Respiratory: Present dyspnea Gastrointestinal Gastrointestinal: Absent abdominal pain PFSH PFSH All Active Problems (Updated 06/29/20 @ 00:05 by Robin Huitron MD) Acute UTI (urinary tract infection) (Acute) Pneumonia (Acute) Hyperkalemia, diminished renal excretion (Acute) Essential hypertension (Acute) CKD stage G4/A2, GFR 15-29 and albumin creatinine ratio 30-299 mg/g (Acute) CKD stage 4 due to type 2 diabetes mellitus (Acute) Hyperkalemia (Acute) Intertrigo (Acute) HTN (hypertension) (Acute) Abdominal pain (Acute) Abdominal mass (Acute) Urinary retention (Acute) E. coli UTI (urinary tract infection) (Acute) Chronic kidney disease (CKD) stage G4/A2, severely decreased glomerular filtration rate (GFR) between 15-29 mL/min/1.73 square meter and albuminuria creatinine ratio between 30-299 mg/g (Chronic) Anemia in chronic kidney disease (Chronic) Ovarian cyst, right (Acute) DVT of lower limb, acute (Acute) Chronic renal failure, stage 3 (moderate) (Chronic) DMII (diabetes mellitus, type 2) (Chronic ~2004) Seizures (Chronic) Morbid obesity (Chronic) Hypercholesterolemia (Chronic) Bilateral lower extremity edema (Chronic) Stroke (Chronic) Deep vein thrombosis of lower extremity (Acute) Ovarian cyst (Chronic) Advanced dementia (Chronic) Degenerative joint disease of knee, right (Chronic) Fall (Chronic) Constipation (Chronic) Retinopathy, diabetic, background (Chronic) Peripheral edema (Chronic) Urine frequency (Chronic) Balance disorder (Chronic) Acid reflux (Chronic) Medical History (Updated 06/29/20 @ 00:05 by Robin Huitron MD) Acid reflux (Chronic) Acute kidney injury (Resolved) Advanced dementia (Chronic) Altered mental status (Resolved) Balance disorder (Chronic) 2010 Pt. uses 4-wheel walker Bilateral lower extremity edema (Chronic) Chronic renal failure, stage 3 (moderate) (Chronic) CKD stage 4 due to type 2 diabetes mellitus (Acute) Complicated UTI (urinary tract infection) (Resolved) Constipation (Chronic) Deep vein thrombosis of lower extremity (Acute) Degenerative joint disease of knee, right (Chronic) DMII (diabetes mellitus, type 2) (Chronic ~2004) Fall (Chronic) Recurrent Gallbladder problem (Resolved) Removed in 1974 [place], [place] Generalized pain (Inactive) Heartburn (Inactive) HTN (hypertension) (Acute) Hypercholesterolemia (Chronic) Hyperkalemia (Acute) Indigestion (Inactive) Intertrigo (Acute) Morbid obesity (Chronic) Ovarian cyst (Chronic) Peripheral edema (Chronic) Retinopathy, diabetic, background (Chronic) Right lumbar radiculopathy (Inactive) Seizures (Chronic) [id number] Dr. Chen Stroke (Chronic) 3765-8607 x9 Urinary tract infection (Resolved) Urine frequency (Chronic) 2010 UTI (urinary tract infection) (Resolved) Surgical History (Updated 06/09/19 @ 09:14 by Js Landry DO) Hx of cholecystectomy (Chronic) Family History (Updated 03/02/15 @ 14:53 by Sanam Tang) Unknown Diabetes mellitus Social History (Updated 03/02/20 @ 17:10 by Bonny Leong MD) marital status: other: Children_3 smoking status: Never smoker alcohol intake frequency: does not drink substance use type: does not use MEDS/ALLERGIES Home Medications and Allergies Home Medications Medication Instructions Recorded Confirmed Type insulin lispro 100 unit/mL 10 unit SUB-Q QPM #15 ml 07/16/18 06/29/20 Rx subcutaneous pen acetaminophen 325 mg tablet 650 mg PO BID PRN tab 05/20/19 06/28/20 History furosemide 20 mg tablet 20 mg PO BID tab 09/16/19 06/29/20 History glucagon HCl 1 mg/mL solution for 1 mg SUB-Q Q20M PRN 09/16/19 06/29/20 History injection polyethylene glycol 3350 17 17 g PO QDAY 09/16/19 06/29/20 History gram/dose oral powder Donut cushion 1 dose .ROUTE .MEDSUPPLY 12/21/19 03/02/20 History nitrofurantoin macrocrystal 100 mg 100 mg PO BID #10 cap 06/22/20 06/29/20 Rx capsule Alophen (bisacodyl) 10 mg RI QDAY PRN 06/29/20 06/29/20 History dexamethasone 6 mg PO QDAY 06/29/20 06/29/20 History insulin glargine [Lantus Solostar 30 unit SUB-Q QAM 06/29/20 06/29/20 History U-100 Insulin] ondansetron 4 mg PO Q6 PRN 06/29/20 06/29/20 History tramadol 50 mg PO Q8 PRN 06/29/20 06/29/20 History tramadol [Ultram] 50 mg PO QDAY 06/29/20 06/29/20 History Allergies Allergy/AdvReac Type Severity Reaction Status Date / Time No Known Drug Allergies Allergy Verified 01/02/20 19:31 EXAM Constitutional Vitals: Temp Pulse Resp BP Pulse Ox 98.6 F 99 H 32 H 135/102 97 06/29/20 03:32 06/29/20 05:34 06/29/20 03:32 06/29/20 05:34 06/29/20 05:34 Head Head exam: Present atraumatic and normal inspection Neck Neck exam: Present full ROM Respiratory Respiratory exam: Present accessory muscle use, rales and respiratory distress Cardiovascular Cardiovascular exam: Present tachycardia; Absent irregular rhythm GI/Abdominal GI/Abdominal exam: Present soft; Absent tenderness Extremities Exam Extremities exam: Present full ROM, normal inspection and pedal edema Neurological Exam Neurological exam: Present alert and altered Psychiatric Psychiatric exam: Present anxious; Absent agitated Skin Skin exam: Present normal color and warm DATA Data Completed and Pending Labs: Labs from last 24 hours 06/29/20 06/28/20 06/28/20 01:11 22:21 21:50 WBC RBC Hgb Hct MCV MCH MCHC RDW Plt Count MPV Neut % (Auto) Lymph % (Auto) [place] % (Auto) Eos % (Auto) Baso % (Auto) Lymph # (Auto) [place] # (Auto) Eos # (Auto) Baso # (Auto) Absolute Neutrophils VBG Lactic Acid 1.4 Sodium Potassium Chloride Carbon Dioxide Anion Gap BUN Creatinine GFR Calculation Glucose Calcium Total Bilirubin AST ALT Alkaline Phosphatase Troponin T 0.06 H* 0.07 H* Total Protein Albumin Globulin Albumin/Globulin Ratio Urine Color Urine Appearance Urine pH Ur Specific [place] Urine Protein Urine Glucose (UA) Urine Ketones Urine Occult Blood Urine Nitrate Urine Bilirubin Urine Urobilinogen Ur Leukocyte Esterase Urine RBC Urine WBC Ur Squamous Epith Cells Ur Transition Epith Cell Urine Bacteria Hyaline Casts Urine Mucus Ur Culture Indicated? 06/28/20 06/28/20 06/28/20 21:50 20:42 20:42 WBC RBC Hgb Hct MCV MCH MCHC RDW Plt Count MPV Neut % (Auto) Lymph % (Auto) [place] % (Auto) Eos % (Auto) Baso % (Auto) Lymph # (Auto) [place] # (Auto) Eos # (Auto) Baso # (Auto) Absolute Neutrophils VBG Lactic Acid Sodium 135 TNP Potassium 4.5 TNP Chloride 97 TNP Carbon Dioxide 24 TNP Anion Gap 14.0 TNP BUN 28 H TNP Creatinine 1.3 H TNP GFR Calculation 40 TNP Glucose 136 H TNP Calcium 8.4 L TNP Total Bilirubin 0.3 TNP AST 42 H TNP ALT 19 TNP Alkaline Phosphatase 98 TNP Troponin T TNP Total Protein 7.3 TNP Albumin 2.4 L TNP Globulin 4.9 H TNP Albumin/Globulin Ratio 0.5 L TNP Urine Color Urine Appearance Urine pH Ur Specific [place] Urine Protein Urine Glucose (UA) Urine Ketones Urine Occult Blood Urine Nitrate Urine Bilirubin Urine Urobilinogen Ur Leukocyte Esterase Urine RBC Urine WBC Ur Squamous Epith Cells Ur Transition Epith Cell Urine Bacteria Hyaline Casts Urine Mucus Ur Culture Indicated? 06/28/20 06/28/20 20:42 19:40 WBC 14.1 H RBC 3.13 L Hgb 8.9 L Hct 28.1 L MCV 89.8 MCH 28.4 MCHC 31.7 RDW 13.4 Plt Count 484 H MPV 9.6 Neut % (Auto) 76.9 Lymph % (Auto) 10.2 L [place]omew % (Auto) 11.4 Eos % (Auto) 1.1 Baso % (Auto) 0.4 Lymph # (Auto) 1.44 L [place] # (Auto) 1.60 H Eos # (Auto) 0.15 Baso # (Auto) 0.06 Absolute Neutrophils 10.83 H VBG Lactic Acid Sodium Potassium Chloride Carbon Dioxide Anion Gap BUN Creatinine GFR Calculation Glucose Calcium Total Bilirubin AST ALT Alkaline Phosphatase Troponin T Total Protein Albumin Globulin Albumin/Globulin Ratio Urine Color Nan Urine Appearance Cloudy A Urine pH 8.0 Ur Specific [place] 1.017 Urine Protein 100 A Urine Glucose (UA) 50 A Urine Ketones Negative Urine Occult Blood Negative Urine Nitrate Negative Urine Bilirubin Negative Urine Urobilinogen Negative Ur Leukocyte Esterase 500 A Urine RBC 10 H Urine WBC > 182 H Ur Squamous Epith Cells 1 Ur Transition Epith Cell < 1 Urine Bacteria Mod A Hyaline Casts 7 H Urine Mucus Few A Ur Culture Indicated? yes A/P Narrative A/P Narrative: Assessment: 74 year old female with hypertension, DM, CKD, recurrent UTI on suppressive abx, dementia who resides in a SNF admitted for acute hypoxic respiratory failure secondary to COVID-19 (presumptive positive SARS-CoV-2 PCR) and possible superimposed bacterial pneumonia and positive UA suggest of UTI. #Acute hypoxic respiratory failure #COVID-19 #Possible pneumonia Plan: Start Dexamethasone and Remdesivir for COVID, start broad spectrum abx for possible pneumonia as the patient is critically ill-Vancomycin, Zosyn, Azithromycin, oxygen supplementation as needed-trial of HFNC, RT consult. MRSA nasal screen. Sputum culture if able. Blood cultures. Chest xray daily while in PCU. Hold off on further IV fluid, monitor for CHF. Follow COVID [id number], ldh, procalcitonin daily. Deescalate abx in 48 hrs if negative bacterial pneumonia workup for MRSA or Pseudomonas. #Complicated UTI - hx of recurrent UTI, Zosyn should cover, follow urine culture. #Diabetes mellitus - Lantus 20 units am and correction humalog SSI-med for now, will likely need higher doses. #Hypertension - start norvasc 5 mg daily. #CKD - stable, monitor renal function and urine output, avoid nephrotoxic meds. #Dementia - lives in SNF, at risk of delirium. #Intrapelvis and intrabdominal cysts - appear to arise from the right adnexal region, slow growth demonstrated on serial imaging. Probably not contributing to this acute respiratory illness. #Hx of DVT - noted, on pharmacologic prophylaxis and SCD. #DVT prophylaxis - heparin SQ/SCD Time Spent With Patient Time: Total time spent is greater than 50% in coordination of care (as documented) at patient's floor/unit and/or counseling patient: Total time spent with greater than 50% in coordination of care (as documented) at patient's floor/unit and/or counseling patient:: Greater than 35 minutes QUALITY VTE Deep Vein Thrombosis/Pulmonary Embolism Present on Admission: No
[2020-06-29] MEDS ORDERED: ONDANSETRON 4 MG/2 ML VIAL IV PRN (08:14)
[2020-06-29] MEDS ORDERED: ACETAMINOPHEN 325 MG TABLET PO PRN (08:19)
[2020-06-29] MEDS ORDERED: amLODIPine 5 MG TABLET PO SCH (09:00)
[2020-06-29] MEDS ORDERED: DEXAMETHASONE 6 MG PO SCH (09:00)
[2020-06-29] MEDS ORDERED: INSULIN GLARGINE, HUMAN 1 UNIT/0.01 ML SQ SCH ×2 (09:00)
[2020-06-29] MEDS ORDERED: VANCOMYCIN PER PHARMACY IV SCH ×2 (09:00)
[2020-06-29] MEDS ORDERED: DOCUSATE SODIUM 100 MG CAPSULE PO SCH (09:00)
--- NOTE | 2020-06-29 09:06 | XRay Report ---
CLINICAL INFORMATION: hypoxia COMPARISON: 06/28/2020 FINDINGS: Moderate cardiomegaly is unchanged. Mediastinum and pulmonary vessels are normal. Diffuse right lung infiltrate shows increasing consolidation with relative sparing in the right midlung. Moderate patchy infiltrate left mid and lower lung has also worsened slightly. Small right pleural effusion worsening slightly. IMPRESSION: Diffuse right lung infiltrate showing increasing consolidation. Moderate patchy left mid and lower lung infiltrate is also worsened. Interpreted and Authenticated by: Ahsan Otoole 06/29/20
[2020-06-29 09:40] LABS: ALT/SGPT 20 U/L (<40); AST/SGOT 35 U/L (<32); Albumin 2.4 gm/dL (3.2-5.2); Albumin/Globulin Ratio 0.5 (1.0-2.3); Alkaline Phosphatase 105 U/L (39-117); Bilirubin,Direct < 0.2 mg/dL (<0.3); Bilirubin,Total 0.4 mg/dL (0.1-1.0); Blood Urea Nitrogen 27 mg/dL (8-23); Calcium 8.2 mg/dL (8.6-10.4); Carbon Dioxide 21 mmol/L (22-30); Chloride 96 mmol/L (96-108); Globulin 4.5 gm/dL (2.2-3.7); Glomerular Filtration Rate 44; Glucose 255 mg/dL (70-105); Lactate Dehydrogenase 388 U/L (135-225); Triglycerides 70 mg/dL (<150)
[2020-06-29 09:57] LABS: Band Neutrophils % 2 % (0-10); Hematocrit 28.6 % (36.0-48.0); Hemoglobin 8.7 g/dL (12.0-15.0); Lymphocytes % 5 % (15-49); Mean Cell Volume 93.2 fL (80.0-100.0); Mean Corpuscular HGB Conc 30.4 g/dL (31.0-36.0); Mean Platelet Volume 8.8 fL (7.4-10.4); Monocytes % (Manual) 5 % (1-12); Platelet Count 406 K/mcL (140-440); Platelet Estimate NORMAL (Normal); RBC 3.07 M/mcL (4.00-5.20); RBC Morphology NORMAL (Normal); Red Cell Distribution Width 13.5 % (11.5-14.5); Segmented Neutrophils % 88 % (38-78)
[2020-06-29] MEDS ORDERED: FUROSEMIDE 40 MG/4 ML VIAL IV ONE (09:57)
[2020-06-29] MEDS: PIPERACILLIN SODIUM/TAZOBACTAM 3.375 GM in DEXTROSE 5% IN WATER 50 ML IV SCH ×3 (10:04→22:05)
[2020-06-29] MEDS: DOCUSATE SODIUM 100 MG CAPSULE PO SCH ×2 (10:17→20:45)
[2020-06-29] MEDS: VANCOMYCIN 1,500 MG in 0.9 % SODIUM CHLORIDE 500 ML IV SCH (10:36)
[2020-06-29] MEDS ORDERED: INSULIN LISPRO 1 UNIT/0.01 ML UNIT SQ SCH (11:30)
[2020-06-29] MEDS: INSULIN LISPRO 1 UNIT/0.01 ML UNIT SQ SCH ×3 (12:03→20:17)
--- NOTE | 2020-06-29 13:05 | Internal Med Progress Note ---
SUBJECTIVE Subjective Patient information: Note initiated : 06/29/20 at 12:57 pm Service Date, if different from initiated Date: [] Patient: Nicole Wolf a 74 y/o F admitted on 06/29/20 for shortness of breath. Chief Complaint: [] Interval history: History of present illness: Ms. 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 UA also looked positive for a UTI. COVID PCR was presumpitively positive. Chest xray showed diffuse right lung and moderate patch left mid and lower lung infiltrates. The patient was admitted for treatement of COVID-19 pneumonia. the patient has a new oxygen requirement of 4 l/min. Broad spectrum antibiotics added due to the possible superimposed bacterial pneumonia (the patient lives in a SNF as well) and to cover for UTI (she takes suppressive n itrofurantoin for recurrent UTI). The patient is in moderate respiratory distress, guarded prognosis. The patient's code status is DNR. The patient has been started on HFNC. I discovered that the patient initially tested positive for COVID on about June 05 which makes severe COVID which was a long time ago to be presenting with severe COVID now. Ordered a respiratory panel to evaluate for influenza, ABG, and BNP. Ordered lasix 40 mg IV once-monitor for improvement. If no improvement after lasix then the patient probably has developed ARDS. 06/30 Constitutional Vitals: Vital Signs Temp Pulse Resp BP Pulse Ox 98.4 F 96 H 27 H 159/72 100 06/29/20 12:04 06/29/20 12:56 06/29/20 12:56 06/29/20 12:31 06/29/20 12:56 Period Temp Pulse Resp BP Sys/Daniels Pulse Ox Last 24 Hr 98.4 F-99.4 F 92-114 18-35 93-184/59-111 45-100 Intake and Output 06/28/20 06/29/20 06/29/20 21:59 05:59 13:59 Intake Total 1250 300 Output Total 1 1 Balance 1249 299 Weight 106.594 kg 105.233 kg Intake & Output: Intake & Output 06/28/20 06/29/2020 21:59 05:59 13:59 Intake Total 1250 300 Output Total 1 1 Balance 1249 299 Weight 106.594 kg 105.233 kg Intake: IV 1250 300 Sodium Chloride 0.9% 1,000 ml @ 1000 Wide Open IV BOLUS ONE Rx#: [id number] Zithromax 500 mg In Dextrose 5% 250 in Water 250 ml @ 250 mls/hr IV Q24H [facility] Rx#:[id number] Zosyn 3.375 gm In Dextrose 5% 50 in Water 50 ml @ 100 mls/hr IV Q8H [facility] Rx#:[id number] Veklury 200 mg In Sodium 250 Chloride 0.9% 250 ml @ 500 mls/ hr IV ONCE ONE Rx#:[id number] Output: # of times incontinent of urine 1 1 Other: Urine Appearance Fem Cath Cloudy Urine Color Fem Cath Dark Yellow Stool Size Smear Stool Color Brown Stool Consistency Soft Exam: General: Alert, Awake, No acute Distress Eyes/N/T: EOMI, Head/Neck: neck supple, CV: RRR, No murmurs, Pulm: b/l, no wheezing Abd: soft, nontender, +BS x4 Ext: no clubbing/cyanosis/edema Neuro: Alert, no focal deficits, moves all extremities, Skin: warm/dry OBJ DATA Labs CBC & Chem 7: 06/29/20 08:20 06/29/20 08:20 Labs: Abnormal Lab Results 06/29/20 06/29/20 06/29/20 08:20 08:20 08:20 WBC 16.0 H RBC 3.07 L Hgb 8.7 L Hct 28.6 L MCHC 30.4 L Plt Count Lymph % (Auto) Lymph # (Auto) [place] # (Auto) Seg Neutrophils % 88 H Lymphocytes % 5 L Absolute Neutrophils Carbon Dioxide 21 L Anion Gap 17.0 H BUN 27 H Creatinine 1.2 H Glucose 255 H Calcium 8.2 L GGT 48 H AST 35 H Lactate Dehydrogenase 388 H Troponin T NT-Pro-B Natriuret Pep 4956.0 H Albumin 2.4 L Globulin 4.5 H Albumin/Globulin Ratio 0.5 L Urine Appearance Urine Protein Urine Glucose (UA) Ur Leukocyte Esterase Urine RBC Urine WBC Urine Bacteria Hyaline Casts Urine Mucus 06/29/20 06/28/20 06/28/20 01:11 21:50 21:50 WBC RBC Hgb Hct MCHC Plt Count Lymph % (Auto) Lymph # (Auto) [place] # (Auto) Seg Neutrophils % Lymphocytes % Absolute Neutrophils Carbon Dioxide Anion Gap BUN 28 H Creatinine 1.3 H Glucose 136 H Calcium 8.4 L GGT AST 42 H Lactate Dehydrogenase Troponin T 0.06 H* 0.07 H* NT-Pro-B Natriuret Pep Albumin 2.4 L Globulin 4.9 H Albumin/Globulin Ratio 0.5 L Urine Appearance Urine Protein Urine Glucose (UA) Ur Leukocyte Esterase Urine RBC Urine WBC Urine Bacteria Hyaline Casts Urine Mucus 06/28/20 06/28/20 20:42 19:40 WBC 14.1 H RBC 3.13 L Hgb 8.9 L Hct 28.1 L MCHC Plt Count 484 H Lymph % (Auto) 10.2 L Lymph # (Auto) 1.44 L [place] # (Auto) 1.60 H Seg Neutrophils % Lymphocytes % Absolute Neutrophils 10.83 H Carbon Dioxide Anion Gap BUN Creatinine Glucose Calcium GGT AST Lactate Dehydrogenase Troponin T NT-Pro-B Natriuret Pep Albumin Globulin Albumin/Globulin Ratio Urine Appearance Cloudy A Urine Protein 100 A Urine Glucose (UA) 50 A Ur Leukocyte Esterase 500 A Urine RBC 10 H Urine WBC > 182 H Urine Bacteria Mod A Hyaline Casts 7 H Urine Mucus Few A Meds: Medications Acetaminophen (Tylenol) 650 mg PO BIDP PRN PRN Reason: PAIN/FEVER > 101 Amlodipine Besylate (Norvasc) 5 mg PO DAILY [facility] Last Admin: 06/29/20 10:17 Dose: 5 mg Documented by: Dexamethasone (Decadron) 6 mg IV DAILY [facility] Dextrose (Dextrose 50%) 0 ml IV UD PRN PRN Reason: Hypoglycemia Diagnostic Test (Pha) (Accu-Chek) 1 each FS ACHS [facility] Last Admin: 06/29/20 11:59 Dose: 1 each Documented by: Docusate Sodium (Colace) 100 mg PO BID [facility] Last Admin: 06/29/20 10:17 Dose: 100 mg Documented by: Glucose (Insta-Glucose) 15 gm PO PRN PRN PRN Reason: Hypoglycemia Heparin Sodium (Porcine) (Heparin) 5,000 unit SQ Q8 [facility] Vancomycin HCl 1,500 mg/ (Sodium Chloride) 500 mls @ 333.3 mls/hr IV Q24H [facility] Last Admin: 06/29/20 10:36 Dose: 333.3 mls/hr Documented by: Azithromycin 500 mg/ Dextrose 250 mls @ 250 mls/hr IV DAILY [facility]; Protocol Stop: 06/30/20 09:59 Piperacillin Sod/Tazobactam (Sod 3.375 gm/ Dextrose) 50 mls @ 100 mls/hr IV Q8H [facility]; Protocol Last Infusion: 06/29/20 10:36 Dose: Infused Documented by: REMDESIVIR 100 mg/ Sodium (Chloride) 250 mls @ 500 mls/hr IV DAILY@1000 [facility] Stop: 07/03/20 10:29 Insulin Glargine (Lantus) 20 unit SQ QAM [facility] Last Admin: 06/29/20 10:17 Dose: 20 units Documented by: Insulin Human Lispro (Humalog) 0 unit SQ ACHS [facility]; Protocol Last Admin: 06/29/20 12:03 Dose: 8 units Documented by: Ondansetron HCl (Zofran) 4 mg IV Q6HP PRN PRN Reason: Nausea And Vomiting Senna (Senokot) 2 tab PO HS [facility] Sodium Chloride (Saline Flush) 10 ml IV Q8 [facility] Vancomycin HCl (Vancomycin Per Pharmacy) 1 order IV UD [facility]; Protocol A/P Narrative A/P Narrative: A: *Acute hypoxic respiratory failure: *COVID-19 with likely viral vs superimposed bacterial PNA: *Complicated UTI (hx of recurrent UTI): *Diabetes mellitus: *HTN: *CKD III: *Dementia: lives in SNF, at risk of delirium. *Intrapelvis and intrabdominal cysts: appear to arise from the right adnexal region, slow growth demonstrated on serial imaging. -Probably not contributing to this acute respiratory illness. *Hx of DVT Plan: -Dexamethasone and Remdesivir -broad spectrum abx for possible pneumonia as the patient is critically ill- Vancomycin, Zosyn, Azithromycin -Deescalate abx in 48 hrs if negative bacterial pneumonia workup for MRSA or Pseudomonas. -oxygen supplementation as needed-trial of HFNC -RT consult -MRSA nasal screen, Sputum culture if able, Blood cultures -Chest xray daily while in PCU -Follow COVID [id number], ldh, procalcitonin daily. -Lantus 20 units am and correction humalog SSI-med for now, will likely need higher doses. -start norvasc 5 mg daily. -at risk of delirium. -ppx: heparin SQ/SCD DNR Time Spent With Patient Time: Total time spent is greater than 50% in coordination of care (as documented) at patient's floor/unit and/or counseling patient: QUALITY VTE Deep Vein Thrombosis/Pulmonary Embolism Present on Admission: No
[2020-06-29] MEDS ORDERED: LORazepam 2 MG/ML VIAL IV ONE (13:25)
[2020-06-29] MEDS: HEPARIN 5,000 UNIT/ML VIAL SQ SCH ×2 (13:45→22:05)
[2020-06-29] MEDS: 0.9 % SODIUM CHLORIDE 10 ML SYRINGE IV SCH ×2 (13:45→22:05)
[2020-06-29] MEDS ORDERED: HEPARIN 5,000 UNIT/ML VIAL SQ SCH (14:00)
[2020-06-29] MEDS: AZITHROMYCIN 500 MG in DEXTROSE 5% IN WATER 250 ML IV SCH (16:34)
[2020-06-29] MEDS ORDERED: LORazepam 2 MG/ML VIAL IV PRN (19:07)
[2020-06-29] MEDS: SENNOSIDES 1 TABLET PO SCH (20:45)
[2020-06-29] MEDS ORDERED: SENNOSIDES 1 TABLET PO SCH (21:00)
[2020-06-30] MEDS: PIPERACILLIN SODIUM/TAZOBACTAM 3.375 GM in DEXTROSE 5% IN WATER 50 ML IV SCH ×3 (05:58→20:43)
[2020-06-30] MEDS: HEPARIN 5,000 UNIT/ML VIAL SQ SCH ×3 (05:59→20:42)
[2020-06-30] MEDS: 0.9 % SODIUM CHLORIDE 10 ML SYRINGE IV SCH ×6 (05:59→22:00)
--- NOTE | 2020-06-30 07:25 | Internal Med Progress Note ---
SUBJECTIVE Subjective Patient information: Note initiated : 06/30/20 at 7:21 am Service Date, if different from initiated Date: [] Patient: Nicole Wolf a 74 y/o F admitted on 06/29/20 for shortness of breath. Chief Complaint: [] Interval history: History of present illness: Ms. 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 UA also looked positive for a UTI. COVID PCR was presumpitively positive. Chest xray showed diffuse right lung and moderate patch left mid and lower lung infiltrates. The patient was admitted for treatement of COVID-19 pneumonia. the patient has a new oxygen requirement of 4 l/min. Broad spectrum antibiotics added due to the possible superimposed bacterial pneumonia (the patient lives in a SNF as well) and to cover for UTI (she takes suppressive ni trofurantoin for recurrent UTI). The patient is in moderate respiratory distress, guarded prognosis. The patient's code status is DNR. The patient has been started on HFNC. I discovered that the patient initially tested positive for COVID on about June 05 which makes severe COVID which was a long time ago to be presenting with severe COVID now. Ordered a respiratory panel to evaluate for influenza, ABG, and BNP. Ordered lasix 40 mg IV once-monitor for improvement. If no improvement after lasix then the patient probably has developed ARDS. 06/30 Drowsy on BiPAP but awakens. Setting adequately on 40% which is a decrease from 50%. Difficult to obtain review of systems given BiPAP but she denies any current pain. She has occasional cough. Constitutional Vitals: Vital Signs Temp Pulse Resp BP Pulse Ox 98.0 F 84 31 H 114/46 94 06/30/20 04:00 06/30/20 06:49 06/30/20 06:49 06/30/20 04:00 06/30/20 06:49 Period Temp Pulse Resp BP Sys/Daniels Pulse Ox Last 24 Hr 97.2 F-98.7 F 72-104 16-35 93-184/46-111 45-100 Intake and Output 06/29/20 06/30/20 06/30/20 21:59 05:59 13:59 Intake Total 300 450 50 Output Total 845 177 Balance -545 273 50 Weight 104.099 kg Intake & Output: Intake & Output 06/29/20 06/30/20 06/30/20 21:59 05:59 13:59 Intake Total 300 450 50 Output Total 845 177 Balance -545 273 50 Weight 104.099 kg Intake: IV 300 50 50 Zithromax 500 mg In Dextrose 5% 250 in Water 250 ml @ 250 mls/hr IV DAILY [facility] Rx#:[id number] Zosyn 3.375 gm In Dextrose 5% 50 50 50 in Water 50 ml @ 100 mls/hr IV Q8H [facility] Rx#:[id number] Oral 400 Output: Urine Catheter Amount 842 177 Fem Cath 395 # of times incontinent of urine 3 Other: Urine Appearance Cloudy Fem Cath Clear Cloudy Urine Color Bright Yellow Bright Yellow Fem Cath Bright Yellow Bright Yellow Urine Odor Fem Cath Normal Stool Size Small Stool Color Brown Stool Consistency Soft # of times incontinent of 1 Bowels Exam: General: Alert, Awake, No acute Distress Eyes/N/T: EOMI, Head/Neck: neck supple, CV: RRR, No murmurs, Pulm: mild b/l rhonchi, no wheezing Abd: soft, nontender, +BS x4 Ext: no clubbing/cyanosis, 1+ b/l LE edema Neuro: Alert, no focal deficits, moves all extremities, Skin: warm/dry OBJ DATA Labs CBC & Chem 7: 06/29/20 08:20 06/29/20 08:20 Labs: Abnormal Lab Results 06/29/20 06/29/20 06/29/20 08:20 08:20 08:20 WBC 16.0 H RBC 3.07 L Hgb 8.7 L Hct 28.6 L MCHC 30.4 L Plt Count Lymph % (Auto) Lymph # (Auto) [place] # (Auto) Seg Neutrophils % 88 H Lymphocytes % 5 L Absolute Neutrophils Carbon Dioxide 21 L Anion Gap 17.0 H BUN 27 H Creatinine 1.2 H Glucose 255 H Calcium 8.2 L GGT 48 H AST 35 H Lactate Dehydrogenase 388 H Troponin T NT-Pro-B Natriuret Pep 4956.0 H Albumin 2.4 L Globulin 4.5 H Albumin/Globulin Ratio 0.5 L Urine Appearance Urine Protein Urine Glucose (UA) Ur Leukocyte Esterase Urine RBC Urine WBC Urine Bacteria Hyaline Casts Urine Mucus 06/29/20 06/28/20 06/28/20 01:11 21:50 21:50 WBC RBC Hgb Hct MCHC Plt Count Lymph % (Auto) Lymph # (Auto) [place] # (Auto) Seg Neutrophils % Lymphocytes % Absolute Neutrophils Carbon Dioxide Anion Gap BUN 28 H Creatinine 1.3 H Glucose 136 H Calcium 8.4 L GGT AST 42 H Lactate Dehydrogenase Troponin T 0.06 H* 0.07 H* NT-Pro-B Natriuret Pep Albumin 2.4 L Globulin 4.9 H Albumin/Globulin Ratio 0.5 L Urine Appearance Urine Protein Urine Glucose (UA) Ur Leukocyte Esterase Urine RBC Urine WBC Urine Bacteria Hyaline Casts Urine Mucus 06/28/20 06/28/20 20:42 19:40 WBC 14.1 H RBC 3.13 L Hgb 8.9 L Hct 28.1 L MCHC Plt Count 484 H Lymph % (Auto) 10.2 L Lymph # (Auto) 1.44 L [place] # (Auto) 1.60 H Seg Neutrophils % Lymphocytes % Absolute Neutrophils 10.83 H Carbon Dioxide Anion Gap BUN Creatinine Glucose Calcium GGT AST Lactate Dehydrogenase Troponin T NT-Pro-B Natriuret Pep Albumin Globulin Albumin/Globulin Ratio Urine Appearance Cloudy A Urine Protein 100 A Urine Glucose (UA) 50 A Ur Leukocyte Esterase 500 A Urine RBC 10 H Urine WBC > 182 H Urine Bacteria Mod A Hyaline Casts 7 H Urine Mucus Few A Meds: Medications Acetaminophen (Tylenol) 650 mg PO BIDP PRN PRN Reason: PAIN/FEVER > 101 Amlodipine Besylate (Norvasc) 5 mg PO DAILY [facility] Last Admin: 06/29/20 10:17 Dose: 5 mg Documented by: Dexamethasone (Decadron) 6 mg IV DAILY [facility] Dextrose (Dextrose 50%) 0 ml IV UD PRN PRN Reason: Hypoglycemia Diagnostic Test (Pha) (Accu-Chek) 1 each FS ACHS [facility] Last Admin: 06/30/20 07:16 Dose: 1 each Documented by: Docusate Sodium (Colace) 100 mg PO BID [facility] Last Admin: 06/29/20 20:45 Dose: Not Given Documented by: Glucose (Insta-Glucose) 15 gm PO PRN PRN PRN Reason: Hypoglycemia Heparin Sodium (Porcine) (Heparin) 5,000 unit SQ Q8 [facility] Last Admin: 06/30/20 05:59 Dose: 5,000 unit Documented by: Vancomycin HCl 1,500 mg/ (Sodium Chloride) 500 mls @ 333.3 mls/hr IV Q24H [facility] Last Infusion: 06/29/20 12:10 Dose: Infused Documented by: Azithromycin 500 mg/ Dextrose 250 mls @ 250 mls/hr IV DAILY [facility]; Protocol Stop: 06/30/20 09:59 Last Infusion: 06/29/20 17:40 Dose: Infused Documented by: Piperacillin Sod/Tazobactam (Sod 3.375 gm/ Dextrose) 50 mls @ 100 mls/hr IV Q8H [facility]; Protocol Last Infusion: 06/30/20 06:42 Dose: Infused Documented by: REMDESIVIR 100 mg/ Sodium (Chloride) 250 mls @ 500 mls/hr IV DAILY@1000 [facility] Stop: 07/03/20 10:29 Insulin Glargine (Lantus) 20 unit SQ QAM [facility] Last Admin: 06/29/20 10:17 Dose: 20 units Documented by: Insulin Human Lispro (Humalog) 0 unit SQ ACHS [facility]; Protocol Last Admin: 06/29/20 20:17 Dose: 10 units Documented by: Lorazepam (Ativan) 0.5 mg IV Q6HP PRN PRN Reason: ANXIETY/SEDATION Ondansetron HCl (Zofran) 4 mg IV Q6HP PRN PRN Reason: Nausea And Vomiting Senna (Senokot) 2 tab PO HS [facility] Last Admin: 06/29/20 20:45 Dose: Not Given Documented by: Sodium Chloride (Saline Flush) 10 ml IV Q8 [facility] Last Admin: 06/30/20 05:59 Dose: 10 ml Documented by: Vancomycin HCl (Vancomycin Per Pharmacy) 1 order IV UD [facility]; Protocol A/P Narrative A/P Narrative: A: *Acute hypoxic respiratory failure with ARDS (PIF <200): -required bipap started on 06/29, fio2 wean down to 50% last night and this morning to 40% *COVID-19 with likely viral vs superimposed bacterial PNA: *Complicated UTI (hx of recurrent UTI): *Diabetes mellitus: *HTN: *CKD III: *Dementia: lives in SNF, at risk of delirium. *Intrapelvis and intrabdominal cysts: appear to arise from the right adnexal region, slow growth demonstrated on serial imaging. -Probably not contributing to this acute respiratory illness. *Hx of DVT *Hypothyroidism: *Obesity Plan: -guarded prognosis -BIpap, wean as able. f/u abg -Dexamethasone and Remdesivir -broad spectrum abx for possible pneumonia as the patient is critically ill-Va ncomycin(d/c), Zosyn, Azithromycin -Deescalate abx in 48 hrs if negative bacterial pneumonia workup for MRSA or Pseudomonas. -RT consult -pending SC/BC -Chest xray daily while in PCU -Follow COVID [id number], ldh, procalcitonin daily. -increased to home dose Lantus, SSI -restart home clonidine/statin/IH's -at risk of delirium. -ppx: heparin SQ/SCD DNR Time Spent With Patient Time: Total time spent is greater than 50% in coordination of care (as documented) at patient's floor/unit and/or counseling patient: QUALITY VTE Deep Vein Thrombosis/Pulmonary Embolism Present on Admission: No
[2020-06-30] MEDS: INSULIN LISPRO 1 UNIT/0.01 ML UNIT SQ SCH ×4 (07:35→20:41)
[2020-06-30] MEDS: LEVOTHYROXINE 50 MCG TABLET PO SCH (07:52)
--- NOTE | 2020-06-30 08:18 | XRay Report ---
CLINICAL INFORMATION: hypoxic respiratory failure COMPARISON: 06/29/2020 FINDINGS: Moderate cardiomegaly is unchanged. Mediastinum and pulmonary vessels are grossly normal. Large infiltrate throughout the right lung shows increasing consolidation. Moderate right pleural effusion also increasing. Moderate patchy infiltrate in the left midlung and base has also worsened IMPRESSION: Bilateral infiltrates, worse on the right, continue to progress Interpreted and Authenticated by: Ahsan Otoole 06/30/20
[2020-06-30] MEDS ORDERED: LACTOBACILLUS 1 CAPSULE PO SCH (09:00)
[2020-06-30] MEDS ORDERED: DEXAMETHASONE 10 MG/ML VIAL IV SCH (09:00)
[2020-06-30] MEDS ORDERED: INSULIN GLARGINE, HUMAN 1 UNIT/0.01 ML SQ SCH (09:00)
[2020-06-30] MEDS: DOCUSATE SODIUM 100 MG CAPSULE PO SCH ×2 (09:40→20:41)
[2020-06-30] MEDS: buPROPion 150 MG TAB.XL.24H PO SCH (09:41)
[2020-06-30] MEDS: INSULIN GLARGINE, HUMAN 1 UNIT/0.01 ML SQ SCH (09:42)
[2020-06-30] MEDS: AZITHROMYCIN 500 MG in DEXTROSE 5% IN WATER 250 ML IV SCH (09:51)
[2020-06-30] MEDS ORDERED: REMDESIVIR 100 MG in 0.9 % SODIUM CHLORIDE 250 ML IV SCH ×2 (10:00→11:00)
[2020-06-30] MEDS: DEXAMETHASONE 10 MG/ML VIAL IV SCH (10:00)
[2020-06-30] MEDS: BUDESONIDE 0.5 MG/2 ML AMPUL.NEB NEB SCH ×2 (10:08→20:41)
[2020-06-30] MEDS ORDERED: BUDESONIDE 0.5 MG/2 ML AMPUL.NEB ONE (10:11)
[2020-06-30 11:48] LABS: C-Reactive Protein 22.7 mg/dL (0.03-0.80)
[2020-06-30 11:49] LABS: Ferritin 861.7 ng/mL (30.0-400.0)
[2020-06-30] MEDS ORDERED: 0.9 % SODIUM CHLORIDE 250 ML IV SCH (12:15)
[2020-06-30] MEDS: VANCOMYCIN 1,500 MG in 0.9 % SODIUM CHLORIDE 500 ML IV SCH (12:15)
[2020-06-30] MEDS: cloNIDine HCL 0.1 MG TABLET PO SCH ×2 (12:32→18:00)
[2020-06-30 14:31] LABS: ALT/SGPT 27 U/L (<40); AST/SGOT 52 U/L (<32); Albumin 2.2 gm/dL (3.2-5.2); Albumin/Globulin Ratio 0.5 (1.0-2.3); Alkaline Phosphatase 117 U/L (39-117); Bilirubin,Direct 0.2 mg/dL (<0.3); Bilirubin,Total 0.3 mg/dL (0.1-1.0); Blood Urea Nitrogen 36 mg/dL (8-23); Calcium 7.9 mg/dL (8.6-10.4); Carbon Dioxide 23 mmol/L (22-30); Chloride 98 mmol/L (96-108); Globulin 4.4 gm/dL (2.2-3.7); Glomerular Filtration Rate 40; Glucose 243 mg/dL (70-105); Lactate Dehydrogenase 456 U/L (135-225); Phosphorous 3.1 mg/dL (2.5-4.5); Triglycerides 73 mg/dL (<150); Uric Acid 7.2 mg/dL (2.5-8.0)
[2020-06-30] MEDS ORDERED: IPRATROPIUM/ALBUTEROL 3 ML AMPUL.NEB NEB PRN (15:30)
[2020-06-30] MEDS ORDERED: IPRATROPIUM/ALBUTEROL 3 ML AMPUL.NEB NEB ONE (15:41)
[2020-06-30] MEDS ORDERED: LORazepam 2 MG/ML VIAL IV PRN (18:20)
[2020-06-30] MEDS ORDERED: morphine 4 MG/ML VIAL ONE (19:57)
[2020-06-30] MEDS ORDERED: LORazepam 2 MG/ML VIAL ONE (20:04)
[2020-06-30] MEDS: morphine 2 MG/ML VIAL IV PRN ×2 (20:30→23:22)
[2020-06-30] MEDS: SENNOSIDES 1 TABLET PO SCH (20:42)
[2020-06-30] MEDS ORDERED: ATORVASTATIN 20 MG TABLET PO SCH (21:00)
[2020-06-30] MEDS: morphine 4 MG/ML VIAL NEB PRN (23:39)
[2020-07-01] MEDS: cloNIDine HCL 0.1 MG TABLET PO SCH ×2 (01:18→04:22)
[2020-07-01] MEDS ORDERED: morphine 15 MG TABLET PO PRN (01:27)
[2020-07-01] MEDS ORDERED: LORazepam 0.5 MG TABLET PO PRN (01:33)
[2020-07-01] MEDS ORDERED: morphine 15 MG TABLET ONE ×2 (01:40→05:46)
[2020-07-01] MEDS ORDERED: LORazepam 1 MG TABLET ONE ×2 (02:09→04:26)
[2020-07-01] MEDS: morphine 4 MG/ML VIAL NEB PRN (03:59)
--- NOTE | 2020-07-01 07:45 | Internal Med Progress Note ---
SUBJECTIVE Subjective Patient information: Note initiated : 07/01/20 at 7:44 am Service Date, if different from initiated Date: [] Patient: Nicole Wolf a 74 y/o F admitted on 06/29/20 for shortness of breath. Chief Complaint: [] Interval history: History of present illness: Ms. 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 UA also looked positive for a UTI. COVID PCR was presumpitively positive. Chest xray showed diffuse right lung and moderate patch left mid and lower lung infiltrates. The patient was admitted for treatement of COVID-19 pneumonia. the patient has a new oxygen requirement of 4 l/min. Broad spectrum antibiotics added due to the possible superimposed bacterial pneumonia (the patient lives in a SNF as well) and to cover for UTI (she takes suppressive ni trofurantoin for recurrent UTI). The patient is in moderate respiratory distress, guarded prognosis. The patient's code status is DNR. The patient has been started on HFNC. I discovered that the patient initially tested positive for COVID on about June 05 which makes severe COVID which was a long time ago to be presenting with severe COVID now. Ordered a respiratory panel to evaluate for influenza, ABG, and BNP. Ordered lasix 40 mg IV once-monitor for improvement. If no improvement after lasix then the patient probably has developed ARDS. 06/30 Drowsy on BiPAP but awakens. Setting adequately on 40% which is a decrease from 50%. Difficult to obtain review of systems given BiPAP but she denies any current pain. She has occasional cough. I had a discussion with her [id number] the POA. She described patient's history and desires for end-of-life care as well as her declining state . She is currently on BiPAP and not improving. We discussed goals and after discussion is decided to transition to comfort care focus, this transition will occur once her daughter is able to come in and see her. 07/01 Transition to comfort care last night. Decreased mentation today, unable to gather view of systems. Constitutional Vitals: Vital Signs Temp Pulse Resp BP Pulse Ox 97.6 F 97 H 30 H 166/69 76 L 06/30/20 19:34 06/30/20 19:28 06/30/20 19:34 06/30/20 19:34 06/30/20 19:34 Period Temp Pulse Resp BP Sys/Daniels Pulse Ox Last 24 Hr 97.6 F-98.5 F 76-97 21-42 75-166/50-71 76-97 Intake and Output 06/30/20 07/01/20 07/01/20 21:59 05:59 13:59 Intake Total 439 Output Total 355 Balance 84 Weight 105.007 kg Intake & Output: Intake & Output 06/30/20 07/01/20 07/01/20 21:59 05:59 13:59 Intake Total 439 Output Total 355 Balance 84 Weight 105.007 kg Intake: IV 439 Zosyn 3.375 gm In Dextrose 5% 50 in Water 50 ml @ 100 mls/hr IV Q8H [facility] Rx#:[id number] Vancomycin 1,500 mg In Sodium 389 Chloride 0.9% 500 ml @ 333.3 mls/hr IV Q24H [facility] Rx#: [id number] Output: Urine Catheter Amount 355 Other: Urine Appearance Cloudy Urine Color Bright Yellow Urine Odor Strong Exam: General: somnolent, No acute Distress Eyes/N/T: EOMI, Head/Neck: neck supple, CV: RRR, No murmurs, Pulm: mild b/l rhonchi, no wheezing Abd: soft, nontender, +BS x4 Ext: no clubbing/cyanosis, 1-2+ b/l LE edema Neuro: minimally arousable, moves all extremities, Skin: warm/dry OBJ DATA Labs CBC & Chem 7: 06/29/20 08:20 06/30/20 05:35 Labs: Abnormal Lab Results 06/30/20 06/30/20 06/30/20 09:47 05:35 05:35 WBC RBC Hgb Hct MCHC Plt Count Lymph % (Auto) Lymph # (Auto) [place] # (Auto) Seg Neutrophils % Lymphocytes % Absolute Neutrophils D-Dimer Carbon Dioxide Anion Gap BUN 36 H Creatinine 1.3 H Glucose 243 H Calcium 7.9 L Ferritin 861.7 H GGT 51 H AST 52 H Lactate Dehydrogenase 456 H Troponin T C-Reactive Protein 22.70 H NT-Pro-B Natriuret Pep Albumin 2.2 L Globulin 4.4 H Albumin/Globulin Ratio 0.5 L Procalcitonin 1.02 H Urine Appearance Urine Protein Urine Glucose (UA) Ur Leukocyte Esterase Urine RBC Urine WBC Urine Bacteria Hyaline Casts Urine Mucus 06/30/20 06/29/20 06/29/20 05:35 08:20 08:20 WBC RBC Hgb Hct MCHC Plt Count Lymph % (Auto) Lymph # (Auto) [place] # (Auto) Seg Neutrophils % Lymphocytes % Absolute Neutrophils D-Dimer 17.86 H Carbon Dioxide 21 L Anion Gap 17.0 H BUN 27 H Creatinine 1.2 H Glucose 255 H Calcium 8.2 L Ferritin GGT 48 H AST 35 H Lactate Dehydrogenase 388 H Troponin T C-Reactive Protein NT-Pro-B Natriuret Pep 4956.0 H Albumin 2.4 L Globulin 4.5 H Albumin/Globulin Ratio 0.5 L Procalcitonin Urine Appearance Urine Protein Urine Glucose (UA) Ur Leukocyte Esterase Urine RBC Urine WBC Urine Bacteria Hyaline Casts Urine Mucus 06/29/20 06/29/20 06/28/20 08:20 01:11 21:50 WBC 16.0 H RBC 3.07 L Hgb 8.7 L Hct 28.6 L MCHC 30.4 L Plt Count Lymph % (Auto) Lymph # (Auto) [place] # (Auto) Seg Neutrophils % 88 H Lymphocytes % 5 L Absolute Neutrophils D-Dimer Carbon Dioxide Anion Gap BUN Creatinine Glucose Calcium Ferritin GGT AST Lactate Dehydrogenase Troponin T 0.06 H* 0.07 H* C-Reactive Protein NT-Pro-B Natriuret Pep Albumin Globulin Albumin/Globulin Ratio Procalcitonin Urine Appearance Urine Protein Urine Glucose (UA) Ur Leukocyte Esterase Urine RBC Urine WBC Urine Bacteria Hyaline Casts Urine Mucus 06/28/20 06/28/20 06/28/20 21:50 20:42 19:40 WBC 14.1 H RBC 3.13 L Hgb 8.9 L Hct 28.1 L MCHC Plt Count 484 H Lymph % (Auto) 10.2 L Lymph # (Auto) 1.44 L [place] # (Auto) 1.60 H Seg Neutrophils % Lymphocytes % Absolute Neutrophils 10.83 H D-Dimer Carbon Dioxide Anion Gap BUN 28 H Creatinine 1.3 H Glucose 136 H Calcium 8.4 L Ferritin GGT AST 42 H Lactate Dehydrogenase Troponin T C-Reactive Protein NT-Pro-B Natriuret Pep Albumin 2.4 L Globulin 4.9 H Albumin/Globulin Ratio 0.5 L Procalcitonin Urine Appearance Cloudy A Urine Protein 100 A Urine Glucose (UA) 50 A Ur Leukocyte Esterase 500 A Urine RBC 10 H Urine WBC > 182 H Urine Bacteria Mod A Hyaline Casts 7 H Urine Mucus Few A Meds: Medications Acetaminophen (Tylenol) 650 mg PO BIDP PRN PRN Reason: PAIN/FEVER > 101 Last Admin: 06/30/20 09:41 Dose: 650 mg Documented by: Albuterol/Ipratropium (Duoneb) 3 ml NEB Q4HP PRN PRN Reason: Shortness Of Breath Atorvastatin Calcium (Lipitor) 20 mg PO QHS [facility] Last Admin: 06/30/20 20:41 Dose: Not Given Documented by: Budesonide (Pulmicort) 0.5 mg NEB Q12 [facility] Last Admin: 06/30/20 20:41 Dose: Not Given Documented by: Bupropion HCl (Wellbutrin Xl) 150 mg PO QAM [facility] Last Admin: 06/30/20 09:41 Dose: 150 mg Documented by: Clonidine HCl (Catapres) 0.1 mg PO Q6 [facility] Last Admin: 07/01/20 04:22 Dose: Not Given Documented by: Dexamethasone (Decadron) 6 mg IV DAILY [facility] Last Admin: 06/30/20 10:00 Dose: 6 mg Documented by: Dextrose (Dextrose 50%) 0 ml IV UD PRN PRN Reason: Hypoglycemia Diagnostic Test (Pha) (Accu-Chek) 1 each FS ACHS [facility] Last Admin: 06/30/20 20:41 Dose: Not Given Documented by: Docusate Sodium (Colace) 100 mg PO BID [facility] Last Admin: 06/30/20 20:41 Dose: Not Given Documented by: Glucose (Insta-Glucose) 15 gm PO PRN PRN PRN Reason: Hypoglycemia Heparin Sodium (Porcine) (Heparin) 5,000 unit SQ Q8 [facility] Last Admin: 06/30/20 20:42 Dose: Not Given Documented by: Piperacillin Sod/Tazobactam (Sod 3.375 gm/ Dextrose) 50 mls @ 100 mls/hr IV Q8H [facility]; Protocol Last Admin: 06/30/20 20:43 Dose: Not Given Documented by: REMDESIVIR 100 mg/ Sodium (Chloride) 250 mls @ 500 mls/hr IV DAILY@1000 [facility] Stop: 07/03/20 10:29 Last Infusion: 06/30/20 11:40 Dose: Infused Documented by: Insulin [facility]) [facility] [place] Last Admin: 06/30/20 09:42 Dose: 35 units Documented by: Insulin Human Lispro (Humalog) 0 unit SQ [facility]; Protocol Last Admin: 06/30/20 20:41 Dose: Not Given Documented by: Levothyroxine Sodium (Synthroid) 50 mcg PO QAMAC [facility] Last Admin: 06/30/20 07:52 Dose: 50 mcg Documented by: Lorazepam (Ativan) 1 - 2 mg IV Q2 PRN PRN Reason: ANXIETY/SEDATION Lorazepam (Ativan) 1 - 2 mg PO Q2HP PRN PRN Reason: ANXIETY/SEDATION Morphine Sulfate (Morphine) 1 - 2 mg IV Q2HP PRN; Protocol PRN Reason: Per Pain Protocol Last Admin: 06/30/20 23:22 Dose: 2 mg Documented by: Morphine Sulfate (Morphine) 4 mg NEB Q4HP PRN; Protocol PRN Reason: Shortness Of Breath Last Admin: 07/01/20 03:59 Dose: 4 mg Documented by: Morphine Sulfate (Morphine) 15 mg PO Q4HP PRN; Protocol PRN Reason: Per Pain Protocol Last Admin: 07/01/20 05:40 Dose: 15 mg Documented by: Ondansetron HCl (Zofran) 4 mg IV Q6HP PRN PRN Reason: Nausea And Vomiting Senna (Senokot) 2 tab PO [facility] Last Admin: 06/30/20 20:42 Dose: Not Given Documented by: Sodium Chloride (Saline Flush) 10 ml IV Q8 [facility] Last Admin: 06/30/20 22:00 Dose: 10 ml Documented by: Sodium Chloride (Saline Flush) 10 ml IV Q8 [facility] Last Admin: 06/30/20 20:43 Dose: Not Given Documented by: Vancomycin HCl (Vancomycin Per Pharmacy) 1 order IV [facility] Protocol Stop: 07/01/20 08:59 A/P Narrative A/P Narrative: A: *Acute hypoxic respiratory failure w/ARDS (PIF <200): *COVID-19 with likely viral vs superimposed bacterial PNA: *Complicated UTI (hx of recurrent UTI): *Diabetes mellitus: *HTN: *CKD III: *Dementia: lives in SNF, at risk of delirium. *Intrapelvis and intrabdominal cysts: appear to arise from the right adnexal region, slow growth demonstrated on serial imaging. -Probably not contributing to this acute respiratory illness. *Hx of DVT *Hypothyroidism: *Obesity Plan: -comfort care only -pt and family support Time Spent With Patient Time: Total time spent is greater than 50% in coordination of care (as documented) at patient's floor/unit and/or counseling patient: QUALITY VTE Deep Vein Thrombosis/Pulmonary Embolism Present on Admission: No
[2020-07-01] MEDS ORDERED: LORazepam 2 MG/ML VIAL IV PRN (09:33)
[2020-07-01] MEDS ORDERED: morphine 2 MG/ML VIAL IV PRN (09:33)
[2020-07-01] MEDS ORDERED: LORazepam 1 MG TABLET SL PRN (09:33)
[2020-07-01] MEDS ORDERED: morphine 4 MG/ML VIAL NEB PRN (09:33)
[2020-07-01] MEDS ORDERED: ACETAMINOPHEN 325 MG TABLET PO PRN (09:33)
[2020-07-01] MEDS ORDERED: morphine 20 MG/ML ORAL.CONC SL PRN (09:33)
[2020-07-01] MEDS ORDERED: ONDANSETRON 4 MG/2 ML VIAL IV PRN (09:33)
[2020-07-01] MEDS: LEVOTHYROXINE 50 MCG TABLET PO SCH (09:36)
[2020-07-01] MEDS: BUDESONIDE 0.5 MG/2 ML AMPUL.NEB NEB SCH (09:36)
[2020-07-01] MEDS: INSULIN GLARGINE, HUMAN 1 UNIT/0.01 ML SQ SCH (09:36)
[2020-07-01] MEDS: DEXAMETHASONE 10 MG/ML VIAL IV SCH (09:36)
[2020-07-01] MEDS: DOCUSATE SODIUM 100 MG CAPSULE PO SCH (09:36)
[2020-07-01] MEDS: buPROPion 150 MG TAB.XL.24H PO SCH (09:37)
[2020-07-01] MEDS: INSULIN LISPRO 1 UNIT/0.01 ML UNIT SQ SCH (09:37)
[2020-07-01] MEDS: PIPERACILLIN SODIUM/TAZOBACTAM 3.375 GM in DEXTROSE 5% IN WATER 50 ML IV SCH (09:39)
[2020-07-01] MEDS: 0.9 % SODIUM CHLORIDE 10 ML SYRINGE IV SCH ×2 (09:39→09:40)
[2020-07-01] MEDS: HEPARIN 5,000 UNIT/ML VIAL SQ SCH (09:40)
--- NOTE | 2020-07-01 10:30 | Death Note ---
Discharge Sum: Prov Provider Patient information: Note initiated : 07/01/20 at 10:29 am Service Date, if different from initiated Date: [] Patient: Nicole Wolf a 74 y/o F admitted on 06/29/20 for shortness of breath. Chief Complaint: [] Primary care physician: Higinio Mays MD Consults: 06/28/20 Consult to Physician [CONS] Stat Comment: Consulting Provider: Dani Phillips Reason For Exam: Physician to Consult 06/30/20 11:18 Consult to Physician [CONS] Routine Comment: Consulting Provider: [facility] Reason For Exam: Physician to Consult Discharge Sum: Summary Date and Time Date of admission: 06/29/20 03:15 Summary Details: istory of present illness: Ms. 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 UA also looked positive for a UTI. COVID PCR was presumpitively positive. Chest xray showed diffuse right lung and moderate patch left mid and lower lung infiltrates. The patient was admitted for treatement of COVID-19 pneumonia. the patient has a new oxygen requirement of 4 l/min. Broad spectrum antibiotics added due to the possible superimposed bacterial pneumonia (the patient lives in a SNF as well) and to cover for UTI (she takes suppressive nitrofurantoin for recurrent UTI). The patient is in moderate respiratory distress, guarded prognosis. The patient's code status is DNR. The patient has been started on HFNC. I discovered that the patient initially tested positive for COVID on about June 05 which makes severe COVID which was a long time ago to be presenting with severe COVID now. Ordered a respiratory panel to evaluate for influenza, ABG, and BNP. Ordered lasix 40 mg IV once-monitor for improvement. If no improvement after lasix then the patient probably has developed ARDS. 06/30 Drowsy on BiPAP but awakens. Setting adequately on 40% which is a decrease from 50%. Difficult to obtain review of systems given BiPAP but she denies any current pain. She has occasional cough. I had a discussion with her [id number] the POA. She described patient's history and desires for end-of-life care as well as her declining state . She is currently on BiPAP and not improving. We discussed goals and after discussion is decided to transition to comfort care focus, this transition will occur once her daughter is able to come in and see her. 07/01 Transition to comfort care last night. Decreased mentation today, unable to gather view of systems. Patient at 1025 hrs. family Notified A: *Acute hypoxic respiratory failure w/ARDS (PIF <200): *COVID-19 with likely viral vs superimposed bacterial PNA: *Complicated UTI (hx of recurrent UTI): *Diabetes mellitus: *HTN: *CKD III: *Dementia: lives in SNF, at risk of delirium. *Intrapelvis and intrabdominal cysts: appear to arise from the right adnexal region, slow growth demonstrated on serial imaging. -Probably not contributing to this acute respiratory illness. *Hx of DVT *Hypothyroidism: *Obesity Additional Data Attending physician: Dani Phillips MD
[2020-07-01] MEDS ORDERED: cloNIDine HCL 0.1 MG TABLET PO SCH (12:00)
[2020-07-01] MEDS ORDERED: 0.9 % SODIUM CHLORIDE 10 ML SYRINGE IV SCH ×2 (14:00)
[2020-07-01] MEDS ORDERED: SENNOSIDES 1 TABLET PO SCH (21:00)
[2020-07-01] MEDS ORDERED: ATORVASTATIN 20 MG TABLET PO SCH (21:00)
[2020-07-01] MEDS ORDERED: DOCUSATE SODIUM 100 MG CAPSULE PO SCH (21:00)
[2020-07-02] MEDS ORDERED: LEVOTHYROXINE 50 MCG TABLET PO SCH (07:30)
[2020-07-02] MEDS ORDERED: INSULIN GLARGINE, HUMAN 1 UNIT/0.01 ML SQ SCH (09:00)
[2020-07-02] MEDS ORDERED: buPROPion 150 MG TAB.XL.24H PO SCH (09:00)
== END 2020-07-01 12:30 | disposition expired | DRG 871 ==
LOC: ED 19:28 → ICU 06-29 03:15
PROVIDERS: ADMIT Internal Medicine; ATTEND Internal Medicine